=== PATIENT | female | born 1970 | race Caucasian/White ===

== ENCOUNTER → 2020-02-05 09:36 | Outpatient (BNVA) | payer MEDICAID, SELFPAY | PROVIDERS: PCP Internal Medicine; Referring Provider Internal Medicine; Visit Provider Internal Medicine Gastroenterology | DX: K21.9 Gastro-esophageal reflux disease without esophagitis (principal) | CPT/HCPCS: 99212 ==

== ENCOUNTER 2020-02-08 10:02 | Day surgery (SDC) | payer MEDICAID, SELFPAY ==
[2020-02-08 11:40] VITALS: BP 128/77; PULSE 74; RESP 16; TEMP 36.5; O2SAT 97; BMI 36.6
--- NOTE | 2020-02-08 12:05 | MHC.SHP ---
Pre-Procedural Eval Section B Chief Complaint: gerd Relevant Family History (Specify if Yes): No Relevant Social History: None Present Medications: see Short Stay Collaborative assessment Medical History: Significant History (GERD,HTN) History of Previous Operations: Relevant previous surgery/procedure and date(s) (gastric bypass, cholecystectomy) Allergies: Allergies Allergy/AdvReac Type Severity Reaction Status Date / Time iron [IRON] Allergy Severe ANAPHYLAXIS Verified 02/08/20 11:38 Opioids - Morphine Analogues Allergy Intermediate RASH Verified 02/08/20 11:38 [OPIOIDS - MORPHINE ANALOGUES] erthromycin Allergy Unknown Nausea Uncoded 02/08/20 11:38 Review of Systems Sugical H&P ROS: Negative: Constitution, Cardiovascular, Respiratory, Neurological, Psychiatric, Hem-Onc, Allergic/Immunologic, Gastrointestinal, Genitourinary, Musculoskeletal, Integumentary, Endocrine and Eyes/Ears/Nose/Throat Exam Surgical H&P Exam: Normal: HEENT, Normal: Heart, Normal: Lungs, Normal: Extremities, Normal: Abdomen, Normal: Skin and Normal: Neurological Plan Diagnosis/Plan: Unchanged Patient has been examined and remains a candidate for the planned procedure
--- NOTE | 2020-02-08 12:06 | HO.ANESPROP2 ---
[facility], [facility] Social History Social History Advance Directives: No Advance Directives Information Provided: Yes Meds Allergies Allergy/AdvReac Type Severity Reaction Status Date / Time iron [IRON] Allergy Severe ANAPHYLAXIS Verified 02/08/20 11:38 Opioids - Morphine Analogues Allergy Intermediate RASH Verified 02/08/20 11:38 [OPIOIDS - MORPHINE ANALOGUES] erthromycin Allergy Unknown Nausea Uncoded 02/08/20 11:38 Exam Exam Date and Time: February 08, 2020 1206 Airway Mallampati Class: II TM Dist: >3cm Neck ROM: Full Assessment and Plan Assessment Anesthesia Assessment: Anesthesia Plan Discussed and Chart Reviewed Final Anesthetic Review NPO: Yes ASA Class: II Final Preanesthetic Review: No Changes in Pt Med Stat, Meds/Allgs Chart Reviewed, Consent Obtained/Reviewed and Anes Risks/Benef Reviewed Patient Risk: Low Procedure Risk: Low Assessment/Block/Sedation in SS: Assess/Block/Sedation-SS Anesthetic Plan Anesthetic Plan: MAC: Disposition: Standard PACU
--- NOTE | 2020-02-08 12:13 | HO.ANESPROP2 ---
[facility] Social History Social History Are you a primary primary care md to a significant other at home: No Do you presently have visiting nurse or other home services: No Smoking Status: Never smoker Use of substances other than those prescribed or required for medical reasons: No Advance Directives: No Advance Directives Information Provided: Yes Advance Directives on File: No Meds Allergies Allergy/AdvReac Type Severity Reaction Status Date / Time iron [IRON] Allergy Severe ANAPHYLAXIS Verified 02/08/20 11:38 Opioids - Morphine Analogues Allergy Intermediate RASH Verified 02/08/20 11:38 [OPIOIDS - MORPHINE ANALOGUES] erthromycin Allergy Unknown Nausea Uncoded 02/08/20 11:38 Home Medications Medication Instructions Recorded Confirmed Type Singulair 02/08/20 History albuterol sulfate [ProAir HFA] 2 puff INHALATION Q4-6H PRN 02/08/20 02/08/20 History buspirone 10 mg PO BID 02/08/20 02/08/20 History hydrochlorothiazide 02/08/20 History irbesartan 300 mg PO DAILY 02/08/20 02/08/20 History mometasone-formoterol [Dulera] inh INHALATION 02/08/20 History sertraline [Zoloft] 100 mg PO DAILY 02/08/20 02/08/20 History vitamin B complex [Vitamins B 1 cap PO DAILY 02/08/20 02/08/20 History Complex] Exam Exam Date and Time: February 08, 2020 1213 Height,Weight and Vital Signs: Height 5 ft 2 in Weight 90.9 kg Last Vital Signs Temp 97.7 F 02/08/20 11:40 Pulse 74 02/08/20 11:40 Resp 16 02/08/20 11:40 BP 128/77 02/08/20 11:40 Pulse Ox 97 02/08/20 11:40
--- NOTE | 2020-02-08 12:48 | PM.OP ---
Brief Operative Note Date of Service: 02/08/20 Pre-op diagnosis: abdo pain, nausea Post-op diagnosis: same Procedure: see op note Surgeon: Katina Martinez MD Anesthesia: MAC Estimated blood loss (mL): 0 Condition: stable Disposition: PACU
--- NOTE | 2020-02-08 12:48 | W.PM.OPN ---
Operative Note Operative Note Date of Service: 02/08/20 Narrative: Procedure Description: EGD FLEXIBLE TRANSORAL UPPER GASTROINTESTINAL ENDOSCOPY UPPER ENDOSCOPY Consent: Indications for the procedure and potential complications of bleeding, perforation, reaction to medications and missed diagnosis were discussed with the patient and informed consent was obtained. Instrument: Olympus GIF H 190 J mid size upper endoscope Monitoring: Vital signs and clinical assessment, continuous EKG monitoring, Pulse oximetry, Carbon Dioxide monitoring and blood pressure monitoring were done throughout the procedure. Procedure: The patient was placed in the left lateral decubitis position and pre-procedure medications were administered and a bite block was placed. The endoscope was inserted into the mouth and advanced under direct vision to the third part of duodenum. A careful inspection was made as the upper endoscope was withdrawn including a retroflexed examination of the proximal stomach; Findings and interventions are described below. Hx of gastric bypass Findings: Larynx:normal Esophagus: GE junction at 38 cm, diaphragm hiatus at 38 cm, no varices or esophagitis. Stomach pouch: Patchy gastric erythema nestor at site of prior sutures. Biopsies were obtained. Grade 2 flap valve on retroflexed examination of the cardia. No fistula seen on careful inspection. jejunum: Scope inserted towards jejuno jejunal anastomosis and taken up the excluded limb but excluded stomach could not be entered. random small bowel taken Intervention: Biopsies as noted above Impression/Findings: mild gastritis PLAN: await bx if neg and ongoing sx then check RASt, and consider repeat MRe given prior hx of ileitis and colitis meantime can trial carafate and see if helps
[2020-02-08 12:57] VITALS: BP 133/82; PULSE 84; RESP 16; TEMP 36.1; O2SAT 98
[2020-02-08 13:12] VITALS: BP 113/88; PULSE 83; RESP 16; O2SAT 98
[2020-02-08] MEDS: ondansetron HCL 4 MG/2 ML VIAL IVPUSH (13:17)
[2020-02-08 13:21] VITALS: BP 121/84; PULSE 74; RESP 16; RESP 20; O2SAT 98
[2020-02-08] MEDS: fentaNYL citrate/PF 100 MCG/2 ML VIAL 50 MCG IVPUSH (13:21)
[2020-02-08 13:26] VITALS: BP 120/84; PULSE 74; RESP 16; O2SAT 97
[2020-02-08 13:44] VITALS: BP 134/89; PULSE 73; RESP 16; O2SAT 97
[2020-02-08 14:09] LABS: Basophils Absolute Auto 0.1 X10*3/uL (0.0-0.2); Basophils Percent Auto 0.7 % (0-2); Eosinophils Absolute Auto 0.3 X10*3/uL (0.0-0.4); Eosinophils Percent Auto 2.7 % (0-4); Hematocrit 35.6 % (37-47); Hemoglobin 11.7 g/dl (12.0-16.0); Imm Gran Abs Auto 0.03 X10*3/uL (0.00-0.03); Imm Gran Pct Auto 0.3 % (0.0-0.4); Lymphocytes Absolute Auto 2.6 X10*3/uL (1.2-4.9); MANUAL DIFF FLAG NO; Mean Corpuscular HGB Conc 32.9 g/dl (31.0-35.0); Mean Corpuscular Hemoglobin 29.9 pg (27.0-33.0); Mean Platelet Volume 8.4 fL (9.4-12.3); Monocytes Absolute Auto 0.7 X10*3/uL (0.1-1.2); Monocytes Percent Auto 6.8 % (2-11); Neutrophils Absolute Auto 6.7 X10*3/uL (2.0-8.3); Neutrophils Percent Auto 64.5 % (45-73); Platelet Count 507 X10*3/uL (160-400); Red Blood Count 3.91 X10*6/uL (4.20-5.50); Red Cell Distribution Width 14.2 % (11.0-16.0); White Blood Count 10.4 X10*3/uL (4.8-10.8)
[2020-02-08 14:25] LABS: Glucose Urine UA NEG (NEG); Leukocyte Esterase Urine NEG (NEG); Nitrite Urine NEG (NEG); PH 6.5 (5.0-8.0); Specific Gravity - Urine 1.025 (1.005-1.025); Urine Blood NEG (NEG); Urine Ketones NEG (NEG); Urine Protein NEG (NEG-TRACE)
[2020-02-08 14:28] LABS: Appearance Urine CLEAR; Color Urine YELLOW
[2020-02-08 14:31] LABS: Alanine Aminotransferase 22 U/L (0-31); Albumin Level 3.7 g/dL (3.5-5.0); Alkaline Phosphatase 96 U/L (39-117); Anion Gap 11 (12-20); Aspartate Amino Transferase 19 U/L (5-31); Bilirubin Total 0.5 mg/dL (0.0-1.0); Blood Urea Nitrogen 18 mg/dL (9-16); Calcium 8.8 mg/dL (8.4-10.2); Carbon Dioxide 30 mmol/L (22-29); Chloride 101 mmol/L (96-108); Creatinine Clr Calc Pharmacy 92.5; Estimated Glomerular Filt Rate > 60; Glucose Fasting 98 mg/dL (60-99); Potassium 4.3 mmol/l (3.3-5.1); Sodium 138 mmol/L (135-145); Total Protein 6.3 g/dL (6.5-8.0)
[2020-02-08 14:31] LABS: Mucus Urine TRACE /LPF; RBC Urine 0-2 /HPF (0); Squamous Epithelial Cell Urine 1+ /LPF; WBC Urine 0 /HPF (0-4)
[2020-02-08 14:33] LABS: Estimated Average Glucose 111 mg/dL; Hemoglobin A1c % 5.5 %
== END 2020-02-08 14:25 | disposition home or self-care (01) ==
PROVIDERS: PCP Internal Medicine; Visit Provider Internal Medicine Gastroenterology
PROC: 0DJ08ZZ Inspection of Upper Intestinal Tract, Via Natural or Artificial Opening Endoscopic (ICD-10-PCS; CPT 43235; principal; 2020-02-08 11:10)
DX: K21.9 Gastro-esophageal reflux disease without esophagitis (principal); K29.60 Other gastritis without bleeding; K44.9 Diaphragmatic hernia without obstruction or gangrene; Z98.84 Bariatric surgery status; I10 Essential (primary) hypertension; Z88.1 Allergy status to other antibiotic agents; Z88.8 Allergy status to other drugs, medicaments and biological substances; Z79.899 Other long term (current) drug therapy; Z79.51 Long term (current) use of inhaled steroids
CPT/HCPCS: 43239; 36415; 80053; 81001; 83036; 85025; 88305; 88342; J2405; J3010

== ENCOUNTER 2020-03-10 08:51 | Outpatient (REF) | payer MEDICAID, SELFPAY ==
--- NOTE | 2020-03-10 08:54 | US_ITS ---
EXAMINATION: US ABDOMEN COMPLETE CLINICAL INFORMATION: Crohn's disease. Abdominal pain. COMPARISON: Ultrasound 08/01/2019. CT for 20 12/16/2019. TECHNIQUE: Real-time imaging of the abdominal viscera. FINDINGS: PANCREAS: The visualized head and body of the pancreas appears unremarkable. Remainder of the pancreas is obscured by bowel gas. ABDOMINAL AORTA: The proximal, mid, and distal segments are normal in caliber. INFERIOR VENA CAVA: Visualized portions are normal. LIVER: The patient's known in the right lobe, is not visualized in today's study. Normal echogenicity. There is no intrahepatic biliary duct dilatation seen. GALLBLADDER: Surgically absent . COMMON BILE DUCT: Normal in caliber measuring 0.4 cm in diameter. RIGHT KIDNEY: Normal. No hydronephrosis. No renal calculi or focal parenchymal lesions. The kidney measures 10.7 cm in maximum dimension. LEFT KIDNEY: Normal. No hydronephrosis. No renal calculi or focal parenchymal lesions. The kidney measures 10.5 cm in maximum dimension. SPLEEN: Normal. The spleen measures 10.8 cm in maximum dimension. FREE FLUID: None. US/US abdomen complete IMPRESSION: 1. Status postcholecystectomy. No evidence of biliary duct dilatation. 2. The patient's known right lobe liver lesion is not visualized in today's study. 3. No acute findings otherwise seen.
== END 2020-03-10 08:52 | disposition home or self-care (01) ==
LOC: HO.US 08:51
PROVIDERS: Visit Provider Internal Medicine Gastroenterology
DX: R10.33 Periumbilical pain (principal); K50.10 Crohn's disease of large intestine without complications
CPT/HCPCS: 76700

== ENCOUNTER → 2020-05-21 07:50 | Outpatient (REF) | payer MEDICAID, SELFPAY ==
--- NOTE | ~2020-05-21 | NM_ITS ---
EXAMINATION: NM RADIONUCLIDE SOLID FOOD GASTRIC EMPTYING 4-HOUR STUDY CLINICAL INFORMATION: Gastroparesis. COMPARISON: None TECHNIQUE: A standard meal consisting of 4 oz of Egg Beaters brand tagged with 720 microcuries Tc-99m Sulfur Colloid, 8 oz water and 2 slices of toast with jelly was administered orally to the patient. Images were obtained using a dual head gamma camera in the anterior and posterior projections over of the stomach immediately post ingestion and at hourly intervals up to 4 hours post ingestion. The anterior and posterior counts at each time interval were averaged using the geometric mean and expressed as percentage of the immediate post ingestion counts. FINDINGS: Imaging over the abdomen: 1 hour 91% (normal 37%-90%) 2 hours 89% (normal 30%-60%) 3 hours 78% 4 hours 71% (normal 0%-10%) NM/NM gastric emptying study IMPRESSION: 71% retention at 4 hours. Findings are consistent with delayed gastric emptying.
== END ==
LOC: HO.NUCMED 07:50
PROVIDERS: Visit Provider Internal Medicine Gastroenterology
DX: K31.84 Gastroparesis (principal)
CPT/HCPCS: 78264; A9541

== ENCOUNTER 2020-07-10 07:25 | Outpatient (REF) | payer MEDICAID, SELFPAY ==
--- NOTE | ~2020-07-10 | MR_ITS ---
EXAMINATION: MR ABDOMEN WITHOUT CONTRAST CLINICAL INFORMATION: Right upper quadrant pain. COMPARISON: Previous abdominal ultrasound most recent February [address] of the abdomen and pelvis June 2019 TECHNIQUE: MR abdomen is performed without gadolinium contrast. MRCP sequences were also performed. FINDINGS: LUNG BASES: The visualized lung bases are unremarkable. LIVER, GALLBLADDER, AND BILIARY TREE: The liver is normal in size, smooth in contour, and normal in signal. There is a 7 mm dark on T1 and bright on T2-weighted sequences lesion in the anterior segment of the right lobe of the liver. When compared with previous ultrasound, it probably represents a hemangioma. No other focal liver lesion is seen. The gallbladder has been removed. There is no intrahepatic or extrahepatic biliary duct dilatation. The common bile duct measures 0.3 cm. No common bile duct stone is seen. PANCREAS: There are areas of fatty infiltration of the pancreas. The pancreas is otherwise normal. The main pancreatic duct is normal. SPLEEN: Unremarkable. ADRENAL GLANDS: Unremarkable. KIDNEYS AND URETERS: There are 2 small dark on T1 and bright on T2-weighted sequences lesions in the right kidney probably representing small cysts. The kidneys are otherwise unremarkable. GASTROINTESTINAL TRACT: There are postsurgical changes to the stomach. Visualized bowel is otherwise unremarkable. ABDOMINAL WALL: No significant hernia is appreciated. LYMPH NODES: No lymphadenopathy. VASCULAR: Unremarkable. OSSEOUS STRUCTURES: There is degenerative disc disease at L4-L5 and L5-S1. MR/MR abdomen wo con IMPRESSION: Normal caliber intrahepatic and extrahepatic bile ducts. No common bile duct stone seen. Probable small hemangioma in the right lobe the liver and small right renal cysts.
== END 2020-07-10 07:26 | disposition home or self-care (01) ==
LOC: HO.MRI 07:25
PROVIDERS: Visit Provider Internal Medicine Gastroenterology
DX: R10.11 Right upper quadrant pain (principal); G89.29 Other chronic pain
CPT/HCPCS: 74181

== ENCOUNTER 2020-07-24 08:03 | Outpatient (REF) | payer MEDICAID, SELFPAY ==
--- NOTE | ~2020-07-24 | FL_ITS ---
EXAMINATION: FL SMALL BOWEL SERIES CLINICAL INFORMATION: Abdominal pain. COMPARISON: None TECHNIQUE: Following a community health advocate image of the abdomen, contrast was administered orally, and interval abdominal radiographs were performed to assess for contrast progression through the small bowel. Following contrast transit through the small bowel and into the colon, the patient was placed on the fluoroscopy table, and multiple spot images were obtained. FINDINGS: License Issuer image of the abdomen demonstrates a normal bowel gas pattern. There are postsurgical changes from gastric bypass. There is normal transit time of contrast material through the small bowel, with contrast present in the colon by 1 hour 15 minutes. There is mild dilatation of small bowel loops in the left upper quadrant at the small bowel anastomosis. Small bowel loops are otherwise of normal caliber throughout the abdomen and pelvis. The jejunal and ileal fold patterns are normal, without evidence of abnormal thickening. No fixed regions of luminal narrowing are seen to suggest stricturing. The terminal ileum demonstrates a normal appearance. FLUOROSCOPY TIME: 0.2 minutes DOSE AREA PRODUCT: 4.522 garcia per centimeter squared. FL/FL small bowel follow through IMPRESSION: Post changes from gastric bypass. Otherwise normal small bowel series.
== END 2020-07-24 08:04 | disposition home or self-care (01) ==
LOC: HO.XRAY 08:03
PROVIDERS: Visit Provider Internal Medicine Gastroenterology
DX: K21.9 Gastro-esophageal reflux disease without esophagitis (principal)
CPT/HCPCS: 74250

== ENCOUNTER 2020-08-01 06:48 | Emergency (ER) | payer MEDICAID, SELFPAY ==
--- NOTE | ~2020-08-01 | CT_ITS ---
EXAMINATION: CT ABDOMEN AND PELVIS WITH CONTRAST CLINICAL INFORMATION: Right upper quadrant pain COMPARISON: MR abdomen without contrast 07/10/2020 TECHNIQUE: Multidetector volumetric images were obtained from the superior aspect of the liver through the pubic symphysis following administration 85 mL of Omnipaque 350 intravenous contrast. Sagittal and coronal reformatted images were obtained on the technologist's workstation. Oral contrast: No This CT examination was performed using dose optimization techniques as appropriate, variously including the following: *Automated exposure control *Adjustment of mA and/or kV according to patient size (this includes techniques or standardized protocols for targeted exams where dose is matched to indication/reason for exam; i.e. extremities or head) *Use of iterative reconstruction technique DLP: 737 mGy-cm FINDINGS: LUNG BASES: The lung bases are clear. The heart size is normal. LIVER, GALLBLADDER, AND BILIARY TREE: The liver is normal in size, shape, and attenuation. No focal hepatic lesion or biliary ductal dilatation is present. The gallbladder is not visualized. PANCREAS: There is mild fatty infiltration of pancreas especially along the head and proximal body of pancreas. SPLEEN: Unremarkable. ADRENAL GLANDS: Unremarkable. KIDNEYS AND URETERS: The kidneys are normal in size, shape, and attenuation. No hydronephrosis, hydroureter, or calculi seen. No perinephric stranding. There is a punctate 5 mm hypodensity in the upper pole cortex right kidney. BLADDER: Unremarkable. GASTROINTESTINAL TRACT: There is scattered stool and gas seen throughout the colon without any significant distention. The small bowel loops are normal caliber. There are gastric reduction surgical changes in the left upper quadrant. Appendix is not visualized with certainty. No inflammatory process seen. ABDOMINAL WALL: There are postsurgical changes along the upper and lower anterior abdominal wall. LYMPH NODES: No abnormal-sized mesenteric or retroperitoneal lymph nodes seen. VASCULAR: Unremarkable. PELVIC VISCERA: The uterus is bulky and retroverted likely from fibroid disease. Small cysts are suspected in both ovaries. No adnexal mass or free fluid. No abnormal pelvic or inguinal lymph nodes. OSSEOUS STRUCTURES: There are L4-L5 and L5-S1 metallic cages for fusion. No lytic or sclerotic process seen. CT/CT abdomen pelvis w con IMPRESSION: No acute intra-abdominal process seen. There are gastric sleeve surgical changes in the left upper quadrant and cholecystectomy. Fatty infiltration of pancreas. Postsurgical changes in upper and lower anterior abdominal wall are noted. Mild constipation. Bulky uterus likely fibroid disease. Likely small follicular cysts in both ovaries. L4-L5 and L5-S1 fusion with cages in place.
--- NOTE | 2020-08-01 07:00 | ED_ITS ---
HPI - Abdominal Pain General Chief Complaint: Abdominal Pain Stated Complaint: Abd pain Time Seen by Provider: 08/01/20 07:00 Source: patient and old records reviewed Mode of arrival: ambulatory Limitations: no limitations History of Present Illness HPI narrative: 49 yo female with GERD, chronic RUQ pain has had cholectystectomy c/o chronic RUQ pain just saw GI - had MRCP on 07/10 = no retained stones seen, small bowel series on 07/24 = no acute findings, normal study MD elicited complaint: abdominal pain Pertinent past history: other (chronic RUQ abdominal pain) Onset (ago): day(s) (chronic but worse over past 2 day) Pain Consistency: constant Location: RUQ Severity: severe Quality: stabbing Radiation: back Exacerbating factors: eating and movement Relieving factors: nothing Context: history of similar episodes Associated symptoms: nausea Related Data Home Medications Medication Instructions Recorded Confirmed Singulair 02/08/20 albuterol sulfate [ProAir HFA] 2 puff INHALATION Q4-6H PRN 02/08/20 02/08/20 buspirone 10 mg PO BID 02/08/20 02/08/20 hydrochlorothiazide 02/08/20 irbesartan 300 mg PO DAILY 02/08/20 02/08/20 mometasone-formoterol [Dulera] inh INHALATION 02/08/20 sertraline [Zoloft] 100 mg PO DAILY 02/08/20 02/08/20 vitamin B complex [Vitamins B 1 cap PO DAILY 02/08/20 02/08/20 Complex] Previous Rx's Medication Instructions Recorded ondansetron 4 mg disintegrating 4 mg PO Q8H #60 tab 02/08/20 tablet sucralfate 100 mg/mL oral 10 ml PO BID #420 ml 02/08/20 suspension amitriptyline 10 mg tablet 10 mg PO BEDTIME #60 tab 07/01/20 lansoprazole 30 mg delayed 30 mg PO DAILY #90 tab 07/01/20 release,disintegrating tablet hydrocodone-acetaminophen 1 tab PO Q6H PRN #12 tab 08/01/20 ondansetron 4 mg PO Q8H PRN #20 tab 08/01/20 sennosides [senna] 8.6 mg PO BEDTIME PRN #30 cap 08/01/20 Allergies Allergy/AdvReac Type Severity Reaction Status Date / Time iron [IRON] Allergy Severe ANAPHYLAXIS Verified 02/08/20 11:38 Opioids - Morphine Analogues Allergy Intermediate RASH Verified 02/08/20 11:38 [OPIOIDS - MORPHINE ANALOGUES] erthromycin Allergy Unknown Nausea Uncoded 02/08/20 11:38 Review of Systems Review of Systems Constitutional : No Weight loss, No Fever, No Chills ENT/Mouth : No sore throat, No Rhinorrhea Eyes: No Swelling, No Redness Cardiovascular : No Chest Pain, No SOB, NoEdema Respiratory : No Cough, No Sputum, No Wheezing Gastrointestinal : Positive Nausea, no Vomiting, no Diarrhea, positive abdominal Pain, No Hematochezia, No Melena Genitourinary : No Dysuria, No Urinary Frequency, No Hematuria, No Urgency Musculoskeletal : No joint pain, No Myalgias, No Joint Swelling Skin : No Skin Lesions, No rash Neuro : No Weakness, No Numbness, No Dizziness, No Headache Psych : No Anxiety/Panic, No Depression Heme/Lymph: No Bruising, No Lymphadenopathy Endocrine : No Polyuria, No Polydipsia All other systems reviewed and are negative. Physical Exam Vital Signs: Vital Signs: Last Vital Signs Temp 98.5 F 08/01/20 07:25 Pulse 82 08/01/20 08:08 Resp 16 08/01/20 08:08 BP 137/86 08/01/20 08:08 Pulse Ox 96 08/01/20 08:08 Body Mass Index 36.6 Appearance: Alert. Oriented X3. No acute distress. Eyes: Pupils equal, round and reactive to light. ENT: Pharynx normal. Neck: Normal inspection. Neck supple. CVS: Normal heart rate and rhythm. Pulses normal. Respiratory: No respiratory distress. Breath sounds normal. Abdomen: Soft and moderate RUQ pain, no rebound or guarding Skin: Skin warm and dry. Normal skin color. Normal skin turgor. Extremities: No lower extremity edema. No calf ttp Neuro: Oriented X 3. No motor deficit. No sensory deficit. Course Course Course Narrative: labs stable no acute findings, CT scan negative chronic pain can follow up with GI message sent to her swing driver Dr. Martinez will evaluate in ED stable for DC at this time after discussion with Dr. Martinez MDM - Abdominal Pain MDM Narrative Medical decision making narrative: 49 yo female with hx of lap gastric bypass and s/p lap cholecystectomy here with chronic RUQ pain seen and evaluated by GI with recent normal small bowel series and MRCP - comes in again with 2 days of attack - at this time will obtain labs, CT scan for analgesia/pancreatitis, pain control, dispo per results and findings Differential Diagnosis Differential diagnosis: Likely abdominal pain, constipation, gastritis, pancreatitis, peptic ulcer disease and small bowel obstruction; Unlikely aortic dissection, acute appendicitis, bowel perforation, diverticulitis and mesenteric ischemia Lab Data Result diagrams: 08/01/20 07:34 08/01/20 08:07 Labs: Lab Results 08/01/20 08/01/20 08/01/20 Range/Units 07:34 07:34 07:34 WBC 14.8 H (4.8-10.8) X10*3/uL RBC 4.22 (4.20-5.50) X10*6/uL Hgb 13.3 (12.0-16.0) g/dl Hct 39.1 (37-47) % MCV 92.7 (80-98) fL MCH 31.5 (27.0-33.0) pg MCHC 34.0 (31.0-35.0) g/dl RDW 13.6 (11.0-16.0) % Plt Count 500 H (160-400) X10*3/uL MPV 8.4 L (9.4-12.3) fL Immature Gran % (Auto) 0.5 H (0.0-0.4) % Neut % (Auto) 74.0 H (45-73) % Lymph % (Auto) 14.6 L (20-40) % Gilmer % (Auto) 7.1 (2-11) % Eos % (Auto) 3.2 (0-4) % Baso % (Auto) 0.6 (0-2) % Lymph # (Auto) 2.2 (1.2-4.9) X10*3/uL Gilmer # (Auto) 1.1 (0.1-1.2) X10*3/uL Eos # (Auto) 0.5 H (0.0-0.4) X10*3/uL Baso # (Auto) 0.1 (0.0-0.2) X10*3/uL Abs Immat Gran (auto) 0.08 H (0.00-0.03) X10*3/uL Absolute Neuts (auto) 11.0 H (2.0-8.3) X10*3/uL Absolute Nucleated RBC 0.000 (0.0-0.012) X10*3/uL Nucleated RBC % (auto) 0.0 (0.0-0.2) /100WBC Hold Blue Top SEE NOTE Sodium Cancelled Potassium Cancelled Chloride Cancelled Carbon Dioxide Cancelled Anion Gap Cancelled BUN Cancelled Creatinine Cancelled Estim Creat Clear Calc Cancelled Estimated GFR Cancelled Random Glucose Cancelled Calcium Cancelled Magnesium (1.6-2.6) mg/dL Total Bilirubin (0.0-1.0) mg/dL Direct Bilirubin (0.0-0.5) mg/dL AST (5-31) U/L ALT (0-31) U/L Alkaline Phosphatase (39-117) U/L Troponin I High Sens (<3.5-17.0) ng/L Total Protein (6.5-8.0) g/dL Albumin (3.5-5.0) g/dL Lipase (8-78) U/L 08/01/20 08/01/20 Range/Units 07:34 08:07 WBC (4.8-10.8) X10*3/uL RBC (4.20-5.50) X10*6/uL Hgb (12.0-16.0) g/dl Hct (37-47) % MCV (80-98) fL MCH (27.0-33.0) pg MCHC (31.0-35.0) g/dl RDW (11.0-16.0) % Plt Count (160-400) X10*3/uL MPV (9.4-12.3) fL Immature Gran % (Auto) (0.0-0.4) % Neut % (Auto) (45-73) % Lymph % (Auto) (20-40) % Gilmer % (Auto) (2-11) % Eos % (Auto) (0-4) % Baso % (Auto) (0-2) % Lymph # (Auto) (1.2-4.9) X10*3/uL Gilmer # (Auto) (0.1-1.2) X10*3/uL Eos # (Auto) (0.0-0.4) X10*3/uL Baso # (Auto) (0.0-0.2) X10*3/uL Abs Immat Gran (auto) (0.00-0.03) X10*3/uL Absolute Neuts (auto) (2.0-8.3) X10*3/uL Absolute Nucleated RBC (0.0-0.012) X10*3/uL Nucleated RBC % (auto) (0.0-0.2) /100WBC Hold Blue Top Sodium 138 Potassium 4.6 Chloride 103 Carbon Dioxide 27 Anion Gap 13 BUN 14 Creatinine 0.76 Estim Creat Clear Calc 94.8 Estimated GFR > 60 Random Glucose 117 H Calcium 9.6 D Magnesium 1.9 (1.6-2.6) mg/dL Total Bilirubin 0.8 (0.0-1.0) mg/dL Direct Bilirubin 0.3 (0.0-0.5) mg/dL AST 18 (5-31) U/L ALT 24 (0-31) U/L Alkaline Phosphatase 104 (39-117) U/L Troponin I High Sens < 3.5 (<3.5-17.0) ng/L Total Protein 6.7 (6.5-8.0) g/dL Albumin 4.0 (3.5-5.0) g/dL Lipase 37 (8-78) U/L ECG Data Attestation: I personally reviewed and interpreted this ECG as follows: ECG interpretation date: 08/01/20 ECG interpretation time: 08:12 Interpretation: Rate: 81 Rhythm: NSR Ione: normal Normal P waves. Normal ROJAS. Normal QRS complex. ST T wave : normal, no KEARA qTC: normal prior studies: no acute ischemia The study has been interpreted contemporaneously by me. . Discharge Plan Discharge Clinical Impression: Abdominal pain Qualifiers: Abdominal location: right upper quadrant Qualified Code(s): R10.11 - Right upper quadrant pain Leukocytosis Qualifiers: Leukocytosis type: unspecified Qualified Code(s): D72.829 - Elevated white blood cell count, unspecified Patient Disposition: Home, Self-Care Instructions: Chronic Abdominal Pain (ED) Additional Instructions: return to ED for any worsening symptoms or concerns please follow up with your GI doctor and your primary care doctor Prescriptions: New hydrocodone-acetaminophen 5-325 mg tablet 1 tab PO Q6H PRN (Reason: pain) Qty: 12 RF: 0 ondansetron 4 mg tablet,disintegrating 4 mg PO Q8H PRN (Reason: nausea and vomiting) Qty: 20 RF: 0 senna 8.6 mg capsule 8.6 mg PO BEDTIME PRN (Reason: constipation) Qty: 30 RF: 0 No Action sucralfate [Carafate] 100 mg/mL suspension 10 ml PO BID Qty: 420 RF: 2 ondansetron 4 mg tablet,disintegrating 4 mg PO Q8H Qty: 60 RF: 1 sertraline [Zoloft] 100 mg Tablet 100 mg PO DAILY RF: 0 buspirone 10 mg Tablet 10 mg PO BID RF: 0 albuterol sulfate [ProAir HFA] 90 mcg/actuation Hfa Aerosol Inhaler 2 puff INHALATION Q4-6H PRN (Reason: Wheezing) RF: 0 irbesartan 300 mg Tablet 300 mg PO DAILY RF: 0 vitamin B complex [Vitamins B Complex] Capsule 1 cap PO DAILY RF: 0 Dulera 50-5 mcg/actuation Hfa Aerosol Inhaler INHALATION RF: 0 Singulair RF: 0 hydrochlorothiazide RF: 0 lansoprazole [Prevacid SoluTab] 30 mg tablet,disintegrat, delay rel 30 mg PO DAILY Qty: 90 RF: 2 amitriptyline 10 mg tablet 10 mg PO BEDTIME Qty: 60 RF: 1 Referrals: Katina Martinez MD [Physician] - None (will follow up as outpatient) Stand Alone Forms: Work/School Release [facility] Past Medical History Attestation statement: The following information was validated with the patient. Source: old records reviewed Medical History (Updated 08/01/20 @ 12:00 by Gabby Webb DO) Chronic RUQ pain Crohn's colitis Gastroparesis GERD (gastroesophageal reflux disease) Surgical History (Updated 08/01/20 @ 07:03 by Gabby Webb DO) Bariatric surgery status S/P cholecystectomy Social History Social History Alcohol intake: never Smoking Status: Never smoker Use of substances other than those prescribed or required for medical reasons: No Advance Directives: No Advance Directives Information Provided: No Patient : No
--- NOTE | 2020-08-01 07:07 | ECG_ITS ---
Test Reason : ABDOMINAL PAIN Blood Pressure : / mmHG Vent. Rate : 081 BPM Atrial Rate : 081 BPM P-R Int : 134 ms QRS Dur : 082 ms QT Int : 356 ms P-R-T Axes : 069 060 052 degrees QTc Int : 413 ms Normal sinus rhythm Normal ECG When compared with ECG of 25-JUL-2019 16:09, No significant change was found Referred By: Gabby Webb Electronically Signed By:LUIS ENRIQUE SPENCER
[2020-08-01 07:25] VITALS: BP 150/83; PULSE 85; RESP 18; TEMP 36.9; O2SAT 96; BMI 36.6
[2020-08-01 07:40] LABS: Basophils Absolute Auto 0.1 X10*3/uL (0.0-0.2); Basophils Percent Auto 0.6 % (0-2); Eosinophils Absolute Auto 0.5 X10*3/uL (0.0-0.4); Eosinophils Percent Auto 3.2 % (0-4); Hematocrit 39.1 % (37-47); Hemoglobin 13.3 g/dl (12.0-16.0); Imm Gran Abs Auto 0.08 X10*3/uL (0.00-0.03); Imm Gran Pct Auto 0.5 % (0.0-0.4); Lymphocytes Absolute Auto 2.2 X10*3/uL (1.2-4.9); Lymphocytes Percent Auto 14.6 % (20-40); MANUAL DIFF FLAG NO; Mean Corpuscular Hemoglobin 31.5 pg (27.0-33.0); Mean Corpuscular Volume 92.7 fL (80-98); Mean Platelet Volume 8.4 fL (9.4-12.3); Monocytes Absolute Auto 1.1 X10*3/uL (0.1-1.2); Monocytes Percent Auto 7.1 % (2-11); Platelet Count 500 X10*3/uL (160-400); Red Blood Count 4.22 X10*6/uL (4.20-5.50); Red Cell Distribution Width 13.6 % (11.0-16.0); White Blood Count 14.8 X10*3/uL (4.8-10.8)
[2020-08-01 08:08] VITALS: BP 137/86; PULSE 82; RESP 16; O2SAT 96
[2020-08-01 08:08] LABS: Troponin-I High Sensitivity < 3.5 ng/L (<3.5-17.0)
[2020-08-01] MEDS: ondansetron HCL 4 MG/2 ML VIAL IVPUSH (08:21)
[2020-08-01] MEDS: Lidocaine HCl Viscous 2 % 15 ML SOLUTION MUCOUS MEM (08:21)
[2020-08-01] MEDS: Ketorolac Tromethamine 30 MG/ML VIAL IVPUSH (08:21)
[2020-08-01] MEDS: Magnesium Hydrox/Alum Hydrox 30 ML ORAL.SUSP PO (08:21)
[2020-08-01] MEDS: 0.9 % Sodium Chloride 1,000 ML 999 ML IVCONT (08:24)
[2020-08-01 08:46] LABS: Alanine Aminotransferase 24 U/L (0-31); Alkaline Phosphatase 104 U/L (39-117); Anion Gap 13 (12-20); Aspartate Amino Transferase 18 U/L (5-31); Bilirubin Direct 0.3 mg/dL (0.0-0.5); Bilirubin Total 0.8 mg/dL (0.0-1.0); Blood Urea Nitrogen 14 mg/dL (9-16); Calcium 9.6 mg/dL (8.4-10.2); Carbon Dioxide 27 mmol/L (22-29); Chloride 103 mmol/L (96-108); Creatinine Clr Calc Pharmacy 94.8; Estimated Glomerular Filt Rate > 60; Glucose Random 117 mg/dL (60-115); Lipase 37 U/L (8-78); Magnesium 1.9 mg/dL (1.6-2.6); Potassium 4.6 mmol/L (3.3-5.1); Sodium 138 mmol/L (135-145); Total Protein 6.7 g/dL (6.5-8.0)
[2020-08-01] MEDS: iohexoL 350 MG/ML 100 ML INFUS..BTL IV (09:35)
[2020-08-01] MEDS: diphenhydrAMINE HCL 50 MG/ML VIAL 25 MG IVPUSH (10:14)
[2020-08-01] MEDS: Morphine Sulfate 4 MG/ML CARTRIDGE IVPUSH (10:14)
[2020-08-01] MEDS: LORazepam 2 MG/ML VIAL 1 MG IVPUSH (11:17)
[2020-08-01 12:25] LABS: Iron 40 mcg/dL (30-160); Percent Iron Saturation 12 % (15-50); Total Iron Binding Capacity 327 mcg/dL (228-428); Unsaturated Iron Binding 287 ug/dL
[2020-08-01 12:43] LABS: Ferritin 213 ng/mL (10-250)
== END 2020-08-01 12:25 | disposition home or self-care (01) ==
PROVIDERS: Emergency Provider Emergency Medicine; PCP Internal Medicine
DX: R10.11 Right upper quadrant pain (principal); D72.829 Elevated white blood cell count, unspecified; Z98.84 Bariatric surgery status; K50.90 Crohn's disease, unspecified, without complications; K21.9 Gastro-esophageal reflux disease without esophagitis
CPT/HCPCS: 36415; 74177; 80048; 80076; 82728; 83540; 83690; 83735; 84484; 85025; 93005; 96361; 96374; 96375; 99284; 99285; J1200; J1885; J2060; J2270; J2405; Q9967

== ENCOUNTER 2020-08-02 06:07 | Inpatient (IN) | payer MEDICAID, SELFPAY ==
[2020-08-02] VITALS (12 sets, daily range): BP systolic 93–135; BP diastolic 56–81; PULSE 81–102; RESP 16–22; TEMP 36.4–37.3; O2SAT 94–96; BMI 36.6
--- NOTE | ~2020-08-02 | US_ITS ---
EXAMINATION: ULTRASOUND-GUIDED LIVER BIOPSY. CLINICAL INFORMATION: Hepatitis, right upper quadrant pain. COMPARISON: MRI abdomen 08/03/2020 TECHNIQUE: Following explaining ultrasound-guided liver biopsy procedure, benefits and risk, internal consent was obtained. Patient was placed supine on ultrasound stretcher and preliminary ultrasound imaging was obtained through the upper abdomen. An optimal site was selected along the right epigastric region and marked. The marked site was cleaned and draped in usual cell manner with 2%] exiting solution. 1% lidocaine was injected puncture site. Through a small skin incision a 20-gauge guide needle was advanced from the skin into the left hepatic lobe under sterile ultrasound guidance. Coaxially a 2 pass core biopsy was obtained. Samples are collected was sent to pathology in formalin the heights of effusion. Postprocedure the guide needle was withdrawn and complete hemostasis was achieved. Patient tolerated procedure extremely well. FINDINGS: There is heterogeneous-appearing liver on the preliminary ultrasound guidance. Ultrasound-guided left lobe liver core biopsy performed. US/US biopsy liver IMPRESSION: Successful ultrasound-guided left hepatic lobe biopsy performed.
--- NOTE | ~2020-08-02 | MR_ITS ---
EXAMINATION: MR ABDOMEN WITHOUT AND WITH CONTRAST CLINICAL INFORMATION: Elevated liver function tests. COMPARISON: CT abdomen from 08/01/2020. Abdomen MRI from 07/10/2020. Ultrasound from 08/01/2019. TECHNIQUE: MR imaging the abdomen was performed in standard sequences on a high-field magnet without and with intravenous administration of 9 mL of Gadavist. FINDINGS: LUNG BASES: Normal. No pulmonary consolidation or pleural effusion at either lung base. LIVER: Liver has normal size, contour and parenchymal signal. No evidence of steatosis or cirrhosis. No periportal edema. Small, 0.8 cm T2 hyperintense focus in hepatic segment VIII corresponds to the hyperechoic lesion seen on ultrasound from 08/01/2019, consistent with hemangioma. The hemangioma shows peripheral opacification on the delayed postcontrast images. Otherwise, liver is unremarkable. GALLBLADDER AND BILIARY TREE: Gallbladder is surgically absent. No intrahepatic or extrahepatic bile duct dilatation. Common bile duct is 0.4 cm diameter. No evidence of common duct stricture or choledocholithiasis. PANCREAS: Again noted is chronic atrophy with partial fatty replacement of pancreas. No pancreatic mass, edema or ductal dilatation. SPLEEN: Normal. ADRENAL GLANDS: Normal. KIDNEYS: Kidneys are normal in size and enhance symmetrically. Small, subcentimeter sized cortical cysts at the upper and lower pole of the right kidney. Imaging follow-up is not recommended for simple cysts. No hydronephrosis. BOWEL AND PERITONEUM: Surgical changes from Sina-en-Y gastric bypass. No bowel wall thickening, mesenteric fat stranding or ascites. VASCULATURE: Abdominal aorta is normal in caliber. The celiac trunk and its branches are widely patent. Superior mesenteric artery and renal arteries are normal. Inferior vena cava is normal. The splenic, mesenteric and portal veins are normal. The hepatic veins are normal. No venous thrombosis. LYMPH NODES: No pathologic sized lymph nodes. SKELETAL: No suspicious bone lesions. Susceptibility artifact produced by intervertebral cages at L4-5 and L5-S1. MR/MR abdomen wo/w con IMPRESSION: * No acute imaging abnormalities in the abdomen. * No evidence of choledocholithiasis or biliary tract obstruction, status post cholecystectomy. * 0.8 cm hemangioma of hepatic segment 8 is unchanged in size compared to 08/01/2019. No suspicious liver lesion.
--- NOTE | ~2020-08-02 | US_ITS ---
EXAMINATION: US ABDOMEN, DUPLEX ARTERIAL VENOUS CLINICAL INFORMATION: 49-year-old female with abdominal pain and elevated liver function tests. Evaluate for Budd-Chiari. COMPARISON: Abdomen CT from 08/01/2020. Ultrasound exam from 08/02/2020. TECHNIQUE: Duplex Doppler imaging of the abdominal vessels was performed. The splenic, hepatic and portal veins, hepatic arteries and inferior vena cava were evaluated. FINDINGS: The liver has normal size, contour and parenchymal echotexture. No perihepatic ascites. No intrahepatic bile duct dilatation. There is normal flow direction within the widely patent main, left and right portal veins. The flow within the main portal vein has a peak systolic velocity of approximately 30 cm/sec. The right, middle and left hepatic veins are widely patent with normal waveforms. No evidence of hepatic vein thrombosis. The visualized proper, right and left hepatic arteries are patent. Splenic vein is widely patent with normal waveform. Inferior vena cava is normal. US/US duplex arterial venous comp IMPRESSION: * Liver has a normal sonographic appearance. * The hepatic veins are normal. No evidence of Budd-Chiari.
--- NOTE | ~2020-08-02 | US_ITS ---
EXAMINATION: US ABDOMEN LIMITED CLINICAL INFORMATION: Abdominal pain with elevated LFTs rule out CBD obstruction.. COMPARISON: MRI abdomen 07/10/2020, ultrasound 03/10/[address] abdomen 08/01/2020 TECHNIQUE: Real-time imaging of the right upper quadrant abdominal viscera. FINDINGS: PANCREAS: The body and head of the pancreas is homogeneous in echotexture. The tail is obscured by overlying gas.. LIVER: The liver is normal in size. The liver contour is normal. Parenchymal echogenicity is normal. There is an echogenic lesion in the right anterior lobe measuring 1.1 x 0.8 x 1.0 cm. No additional lesions seen. There is no intrahepatic biliary duct dilatation seen. GALLBLADDER: The gallbladder has been surgically removed. COMMON BILE DUCT: Normal in caliber measuring 0.43 cm in diameter. RIGHT KIDNEY: Normal. No hydronephrosis. No renal calculi or focal parenchymal lesions. The kidney measures 10.7 cm in maximum dimension. FREE FLUID: None. US/US abdomen limited IMPRESSION: Hemangioma right anterior hepatic lobe.. It was visualized on previous MRI and ultrasound but not on CT. Visualized pancreas, gallbladder, CBD and the right kidney is unremarkable.
--- NOTE | 2020-08-02 06:36 | PC.NURSE ---
pt aaox4, resting on stretcher in NAD, breathing with ease on RA. Pt reports R side upper abd pain that radiates around R side to back stating it feels like someone is taking a hot alfie and very slowly poking me with it. Pt states this is worse than her chronic GI issues, has been acutely worse x 3 days. Bloodwork obtained, this RN to send to lab for processing. Pt attempting to provide urine sample at this time.
[2020-08-02 06:45] LABS: MANUAL DIFF FLAG NO
[2020-08-02 06:50] LABS: Basophils Absolute Auto 0.1 X10*3/uL (0.0-0.2); Basophils Percent Auto 0.4 % (0-2); Eosinophils Absolute Auto 0.3 X10*3/uL (0.0-0.4); Eosinophils Percent Auto 2.2 % (0-4); Hematocrit 38.8 % (37-47); Imm Gran Abs Auto 0.07 X10*3/uL (0.00-0.03); Imm Gran Pct Auto 0.5 % (0.0-0.4); Lymphocytes Absolute Auto 2.2 X10*3/uL (1.2-4.9); Lymphocytes Percent Auto 14.8 % (20-40); Mean Corpuscular HGB Conc 33.5 g/dl (31.0-35.0); Mean Corpuscular Hemoglobin 31.3 pg (27.0-33.0); Mean Corpuscular Volume 93.3 fL (80-98); Mean Platelet Volume 8.4 fL (9.4-12.3); Monocytes Absolute Auto 0.9 X10*3/uL (0.1-1.2); Neutrophils Absolute Auto 11.2 X10*3/uL (2.0-8.3); Neutrophils Percent Auto 76.1 % (45-73); Platelet Count 508 X10*3/uL (160-400); Red Blood Count 4.16 X10*6/uL (4.20-5.50); Red Cell Distribution Width 13.5 % (11.0-16.0); White Blood Count 14.7 X10*3/uL (4.8-10.8)
--- NOTE | 2020-08-02 06:54 | ED.ABDPAIN ---
HPI - Abdominal Pain General Chief Complaint: Abdominal Pain Stated Complaint: abd pain Time Seen by Provider: 08/02/20 06:50 Source: patient Mode of arrival: ambulatory Limitations: no limitations History of Present Illness HPI narrative: 49-year-old female came in today for evaluation of chronic abdominal pain. Patient status post gastric bypass in 2003, patient been complaining of chronic upper abdominal pain (status post cholecystectomy), patient has been seeing Dr. Martinez GI as an outpatient, patient has been worked up for chronic abdominal pain reportedly patient had gastroparesis, patient was seen yesterday for similar pain at in the emergency department and was seen and evaluated by Dr. Martinez, patient was offered an admission to the hospital for further inpatient workup but patient declined, patient returned today cannot tolerate the pain at home. Of note patient had CT the abdomen pelvis yesterday was unremarkable. Related Data Home Medications Medication Instructions Recorded Confirmed Singulair 02/08/20 albuterol sulfate [ProAir HFA] 2 puff INHALATION Q4-6H PRN 02/08/20 02/08/20 buspirone 10 mg PO BID 02/08/20 02/08/20 hydrochlorothiazide 02/08/20 irbesartan 300 mg PO DAILY 02/08/20 02/08/20 mometasone-formoterol [Dulera] inh INHALATION 02/08/20 sertraline [Zoloft] 100 mg PO DAILY 02/08/20 02/08/20 vitamin B complex [Vitamins B 1 cap PO DAILY 02/08/20 02/08/20 Complex] Previous Rx's Medication Instructions Recorded ondansetron 4 mg disintegrating 4 mg PO Q8H #60 tab 02/08/20 tablet sucralfate 100 mg/mL oral 10 ml PO BID #420 ml 02/08/20 suspension amitriptyline 10 mg tablet 10 mg PO BEDTIME #60 tab 07/01/20 lansoprazole 30 mg delayed 30 mg PO DAILY #90 tab 07/01/20 release,disintegrating tablet hydrocodone-acetaminophen 1 tab PO Q6H PRN #12 tab 08/01/20 ondansetron 4 mg PO Q8H PRN #20 tab 08/01/20 sennosides [senna] 8.6 mg PO BEDTIME PRN #30 cap 08/01/20 Allergies Allergy/AdvReac Type Severity Reaction Status Date / Time iron [IRON] Allergy Severe ANAPHYLAXIS Verified 08/02/20 06:14 Opioids - Morphine Analogues Allergy Intermediate RASH Verified 08/02/20 06:14 [OPIOIDS - MORPHINE ANALOGUES] erthromycin Allergy Unknown Nausea Uncoded 02/08/20 11:38 Review of Systems Review of Systems All other systems are reviewed and are negative Constitutional: Reports as per HPI and Reports no additional constitutional complaints Eyes: Reports as per HPI and Reports no additional eye complaints Reports system reviewed and no additional complaints, except as documented Cardiovascular: Reports as per HPI and Reports no additional cardiovascular complaints Respiratory: Reports as per HPI and Reports no additional respiratory complaints Gastrointestinal: Reports as per HPI and Reports no additional gastrointestinal complaints Genitourinary: Reports no additional female genitourinary complaints Musculoskeletal: Reports no additional musculoskeletal complaints Skin/Breast: Reports system reviewed and no additional complaints, except as docu Psychiatric: Reports no additional psychiatric complaints Endocrine: Reports no additional endocrine complaints Hematologic/Lymphatic: Reports no additional hematologic/lymphatic complaints Allergic/Immunologic: Reports no additional allergic/immunologic complaints Reports system reviewed and no additional complaints, except as documented and Reports Abnormal speech present Physical Exam Vital Signs: Vital Signs: Last Vital Signs Temp 99.2 F 08/02/20 07:10 Pulse 101 H 08/02/20 07:10 Resp 20 08/02/20 07:10 BP 119/81 08/02/20 07:10 Pulse Ox 95 08/02/20 07:10 Body Mass Index 36.6 Vital signs have been reviewed as appeared to be correct. Blood pressure normal. Heart rate elevation. Respiration rate normal. Temperature normal. Oxygen saturation normal. Appearance: Alert. Oriented X3. No acute distress. Head: Normal external exam. Normocephalic. Atraumatic. No Abad signs noted. No raccoon eyes noted Eyes: PERRLA. EOMI. Conjunctiva and sclera normal. Eyelids normal. ENT: TM's Normal. Pharynx normal. Uvula midline. Moist mucous membranes. No trismus noted. No drooling noted. No muffled voice noted. Neck: Normal inspection. Neck supple. FROM. No adenopathy. Thyroid Normal. No meningeal signs. No neck mass noted. CVS: Normal heart rate and rhythm. Heart sound normal. No murmurs noted. Pulses normal throughout. Respiratory: No respiratory distress. Painless inspiration. Breath sounds normal. No wheezes/rales/rhonchi noted. Chest nontender. No accessory muscle usage noted or decreased air movement noted. Abdomen: Soft, upper abdominal tenderness but no rebound tenderness, no guarding. Bowel sounds normal in all 4 quadrants. No distention noted. No organomegaly noted. No visible injury noted. Back: No CVA tenderness. Full range of motion noted. Skin: Skin warm and dry. Normal skin color. Normal skin turgor. No rashes/lesions/lacerations noted. Extremities: No lower extremity edema. Extremities exhibit normal range of motion. Extremities nontender. Neuro: Oriented X 3. No motor deficit. No sensory deficit. Reflexes normal. Course Course Course Narrative: Assessment and plan. 49-year-old female with chronic abdominal pain, status post cholecystectomy, status post remote gastric bypass. The case discussed with Dr. Martinez whose think patient should be admitted to the hospital for further evaluation of her chronic pain. Patient also describes very mild urinary frequency but no dysuria, UA is showing mild UTI. Will check cultures and consider antibiotic with fluid. Patient had negative ultrasound for CBD obstruction concern of leukocytosis/elevated LFTs. UA is reflecting a very mild UTI, I do not think that the urinary infection is the cause of patient's transaminitis, normal lactic acid, pending culture, otherwise nothing indicates severe sepsis in this patient. MDM - Abdominal Pain Lab Data Attestation: I reviewed the patient's lab results. Result diagrams: 08/02/20 06:34 08/02/20 06:34 Labs: Lab Results 08/02/20 08/02/20 08/02/20 Range/Units 06:34 06:34 06:34 WBC 14.7 H (4.8-10.8) X10*3/uL RBC 4.16 L (4.20-5.50) X10*6/uL Hgb 13.0 (12.0-16.0) g/dl Hct 38.8 (37-47) % MCV 93.3 (80-98) fL MCH 31.3 (27.0-33.0) pg MCHC 33.5 (31.0-35.0) g/dl RDW 13.5 (11.0-16.0) % Plt Count 508 H (160-400) X10*3/uL MPV 8.4 L (9.4-12.3) fL Immature Gran % (Auto) 0.5 H (0.0-0.4) % Neut % (Auto) 76.1 H (45-73) % Lymph % (Auto) 14.8 L (20-40) % [place] % (Auto) 6.0 (2-11) % Eos % (Auto) 2.2 (0-4) % Baso % (Auto) 0.4 (0-2) % Lymph # (Auto) 2.2 (1.2-4.9) X10*3/uL [place] # (Auto) 0.9 (0.1-1.2) X10*3/uL Eos # (Auto) 0.3 (0.0-0.4) X10*3/uL Baso # (Auto) 0.1 (0.0-0.2) X10*3/uL Abs Immat Gran (auto) 0.07 H (0.00-0.03) X10*3/uL Absolute Neuts (auto) 11.2 H (2.0-8.3) X10*3/uL Absolute Nucleated RBC 0.000 (0.0-0.012) X10*3/uL Nucleated RBC % (auto) 0.0 (0.0-0.2) /100WBC Hold Blue Top SEE NOTE Sodium 136 (135-145) mmol/L Potassium 4.1 (3.3-5.1) mmol/L Chloride 100 (96-108) mmol/L Carbon Dioxide 25 (22-29) mmol/L Anion Gap 15 (12-20) BUN 12 (9-16) mg/dL Creatinine 0.79 (0.5-1.4) mg/dL Estim Creat Clear Calc 91.2 Estimated GFR > 60 Random Glucose 122 H (60-115) mg/dL Lactic Acid (0.5-2.0) mmol/L Calcium 9.5 (8.4-10.2) mg/dL Total Bilirubin 1.3 H (0.0-1.0) mg/dL AST 288 H (5-31) U/L ALT 516 H (0-31) U/L Alkaline Phosphatase 258 H D (39-117) U/L C-Reactive Protein 11.15 H (< or = 0.50) mg/dL Total Protein 6.8 (6.5-8.0) g/dL Albumin 4.1 (3.5-5.0) g/dL Lipase 20 (8-78) U/L Urine Color Urine Appearance Urine pH (5.0-8.0) Ur Specific [place] (1.005-1.025) Urine Protein (NEG-TRACE) MG/DL Urine Glucose (UA) (NEG) MG/DL Urine Ketones (NEG) MG/DL Urine Blood (NEG) Urine Nitrite (NEG) Ur Leukocyte Esterase (NEG) Urine RBC (0) /HPF Urine WBC (0-4) /HPF Ur Squamous Epith Cells /LPF Urine Bacteria /LPF 08/02/20 08/02/20 Range/Units 06:39 07:50 WBC (4.8-10.8) X10*3/uL RBC (4.20-5.50) X10*6/uL Hgb (12.0-16.0) g/dl Hct (37-47) % MCV (80-98) fL MCH (27.0-33.0) pg MCHC (31.0-35.0) g/dl RDW (11.0-16.0) % Plt Count (160-400) X10*3/uL MPV (9.4-12.3) fL Immature Gran % (Auto) (0.0-0.4) % Neut % (Auto) (45-73) % Lymph % (Auto) (20-40) % [place] % (Auto) (2-11) % Eos % (Auto) (0-4) % Baso % (Auto) (0-2) % Lymph # (Auto) (1.2-4.9) X10*3/uL [place] # (Auto) (0.1-1.2) X10*3/uL Eos # (Auto) (0.0-0.4) X10*3/uL Baso # (Auto) (0.0-0.2) X10*3/uL Abs Immat Gran (auto) (0.00-0.03) X10*3/uL Absolute Neuts (auto) (2.0-8.3) X10*3/uL Absolute Nucleated RBC (0.0-0.012) X10*3/uL Nucleated RBC % (auto) (0.0-0.2) /100WBC Hold Blue Top Sodium (135-145) mmol/L Potassium (3.3-5.1) mmol/L Chloride (96-108) mmol/L Carbon Dioxide (22-29) mmol/L Anion Gap (12-20) BUN (9-16) mg/dL Creatinine (0.5-1.4) mg/dL Estim Creat Clear Calc Estimated GFR Random Glucose (60-115) mg/dL Lactic Acid 0.6 (0.5-2.0) mmol/L Calcium (8.4-10.2) mg/dL Total Bilirubin (0.0-1.0) mg/dL AST (5-31) U/L ALT (0-31) U/L Alkaline Phosphatase (39-117) U/L C-Reactive Protein (< or = 0.50) mg/dL Total Protein (6.5-8.0) g/dL Albumin (3.5-5.0) g/dL Lipase (8-78) U/L Urine Color DARK YELLOW Urine Appearance CLEAR Urine pH 6.0 (5.0-8.0) Ur Specific [place] 1.015 (1.005-1.025) Urine Protein NEG (NEG-TRACE) MG/DL Urine Glucose (UA) NEG (NEG) MG/DL Urine Ketones NEG (NEG) MG/DL Urine Blood NEG (NEG) Urine Nitrite NEG (NEG) Ur Leukocyte Esterase TRACE H (NEG) Urine RBC 0 (0) /HPF Urine WBC 5-9 H (0-4) /HPF Ur Squamous Epith Cells 1+ /LPF Urine Bacteria 2+ /LPF Imaging Data US - abdomen: Radiologist's impression: Hemangioma right anterior hepatic lobe.. It was visualized on previous MRI and ultrasound but not on CT. Visualized pancreas, gallbladder, CBD and the right kidney is unremarkable. Discharge Plan Discharge Clinical Impression: Abdominal pain, Transaminitis Urinary tract infection Qualifiers: Urinary tract infection type: acute cystitis Hematuria presence: without hematuria Qualified Code(s): N30.00 - Acute cystitis without hematuria Patient Disposition: Admitted As Inpatient [facility] Past Medical History Medical History Chronic RUQ pain Crohn's colitis Gastroparesis GERD (gastroesophageal reflux disease) Surgical History Bariatric surgery status S/P cholecystectomy Social History Social History Alcohol intake: never Smoking Status: Never smoker Use of substances other than those prescribed or required for medical reasons: No Any prior treatment program specific to substance use: No Advance Directives: No Advance Directives Information Provided: No
[2020-08-02 06:57] LABS: Glucose Urine UA NEG (NEG); Leukocyte Esterase Urine TRACE (NEG); Nitrite Urine NEG (NEG); Specific Gravity - Urine 1.015 (1.005-1.025); UACC Culture Trigger YES; Urine Blood NEG (NEG); Urine Ketones NEG (NEG); Urine Protein NEG (NEG-TRACE)
[2020-08-02 07:02] LABS: Appearance Urine CLEAR; Color Urine DARK YELLOW
[2020-08-02 07:04] LABS: Bacteria Urine 2+ /LPF; RBC Urine 0 /HPF (0); Squamous Epithelial Cell Urine 1+ /LPF
[2020-08-02] MEDS: Morphine Sulfate 2 MG/ML CARTRIDGE IVPUSH (07:08)
[2020-08-02] MEDS: diphenhydrAMINE HCL 50 MG/ML VIAL IVPUSH (07:08)
[2020-08-02 07:31] LABS: Alanine Aminotransferase 516 U/L (0-31); Albumin Level 4.1 g/dL (3.5-5.0); Alkaline Phosphatase 258 U/L (39-117); Anion Gap 15 (12-20); Aspartate Amino Transferase 288 U/L (5-31); Bilirubin Total 1.3 mg/dL (0.0-1.0); Blood Urea Nitrogen 12 mg/dL (9-16); Calcium 9.5 mg/dL (8.4-10.2); Carbon Dioxide 25 mmol/L (22-29); Chloride 100 mmol/L (96-108); Creatinine Clr Calc Pharmacy 91.2; Estimated Glomerular Filt Rate > 60; Glucose Random 122 mg/dL (60-115); Lipase 20 U/L (8-78); Potassium 4.1 mmol/L (3.3-5.1); Sodium 136 mmol/L (135-145); Total Protein 6.8 g/dL (6.5-8.0)
[2020-08-02 07:33] LABS: C Reactive Protein 11.15 mg/dL (< or = 0.50)
--- NOTE | 2020-08-02 08:02 | PC.NURSE ---
Pt alert and oriented, c/o epigastric pain radiates to mid back, tender to touch, active BS x4, no abd distention noted. Pt pending admission at this time.
[2020-08-02 08:17] LABS: Lactic Acid 0.6 mmol/L (0.5-2.0)
[2020-08-02] MEDS: cefTRIAXone sodium 1 GM in 0.9 % Sodium Chloride 50 ML IV (08:34)
[2020-08-02] MEDS: 0.9 % Sodium Chloride 1,000 ML 999 ML IVCONT (08:36)
[2020-08-02] MEDS: HYDROmorphone HCl 1 MG/ML SYRINGE IVPUSH ×5 (09:22→21:57)
[2020-08-02] MEDS: Famotidine/PF 20 MG/2 ML VIAL IVPUSH ×2 (11:42→20:31)
[2020-08-02] MEDS: Dextrose 5 % and 0.9 % NaCl 1,000 ML 100 ML IVCONT ×2 (12:01→22:27)
[2020-08-02] MEDS: Piperacillin Sodium/Tazobactam 3.375 GM in 0.9 % Sodium Chloride 50 ML IV ×3 (12:02→23:23)
[2020-08-02 13:35] LABS: INTERNATIONAL NORM RATIO 1.2 (0.9-1.1); Prothrombin Time 14.8 SEC (10.8-13.0)
--- NOTE | 2020-08-02 13:40 | PC.NURSE ---
This jingle writer gave report to receiving nurse (Mariluz).
[2020-08-02 13:53] LABS: Acetaminophen LAB < 1 mcg/mL (<30)
[2020-08-02 14:02] LABS: COVID-19 Test Negative (Negative); IDNOW Serial# 9DD0AD1C
[2020-08-02] MEDS: diphenhydrAMINE HCL 50 MG/ML VIAL 12.5 MG IVPUSH ×2 (14:46→20:31)
--- NOTE | 2020-08-02 15:03 | PC.NURSE ---
received to unit at 1425 , co pain 12/05 . medicated with iv dilaudid and benadryl for itching. vss. patient educated on pain scale and oriented to hospital unit.
--- NOTE | 2020-08-02 15:28 | PM.GICN ---
History of Present Illness Data of Consult Service Date: 08/02/20 Requesting physician: Rodrigo Tang Primary Care Provider: Luis Enrique Mason MD [facility] Reason for consult: Abdominal pain, elevated LFTs This 49 YF was seen at [facility] this am with worsening of her chronic abdominal pain: Patient status post gastric bypass in 2003, patient been complaining of chronic upper abdominal pain (status post cholecystectomy), patient has been seeing Dr. Juan DAWN as an outpatient, patient has been worked up for chronic abdominal pain reportedly patient had gastroparesis, patient was seen yesterday for similar pain at in the emergency department and was seen and evaluated by Dr. Zelaya, patient was offered an admission to the hospital for further inpatient workup but patient declined, patient returned today cannot tolerate the pain at home. Of note patient had CT the abdomen pelvis yesterday was unremarkable . Labs showed elevated wbc with left shift and elevated LFTs (of note LFTs were normal on 08/01/2020) Patient complains of intermittent episodes of abdominal pain - last episode was in Apr, 2020 Recurrent pain starting on 07/30/20. Pain is burning and stabbing (feels like a red hot alfie poking through) and radiates to the back. It was 10 x 10 in intensity when patient arrived and has improved to 7 x 10 today. Pain is more less constant and varies in intensity. Abdominal is pain is similar to the pain she had prior to gallbladder surgery last fall. Pain resolved for a few months after the gallbladder surgery and has recurred now. She has not been eating for the past few days. She was able to take some to injury last night when she went home from the ED. Pt notes intermittent bouts of diarrhea with urgency alternating with normal stools (diagnosed with colitis on past colonoscopy in 2017) Denies black stools or rectal bleeding. Pt reports having RYGBS in 2003. Lost 90 lbs from 250 to 160 lbs after the surgery Has slowly regained weight and now weighs 200 lbs. Patient denies known family history of colon polyps, colon cancer or other GI malignancies. Father has diverticulosis and a sister has EOE. IMAGING STUDIES: 07/10/20 MRI SHOWED: Normal caliber intrahepatic and extrahepatic bile ducts. No common bile duct stone seen. Probable small hemangioma in the right lobe the liver and small right renal cysts. 08/01/[address] SCAN SHOWED: No acute intra-abdominal process seen. There are gastric sleeve surgical changes in the left upper quadrant and cholecystectomy. Fatty infiltration of pancreas. Postsurgical changes in upper and lower anterior abdominal wall are noted. Mild constipation. Bulky uterus likely fibroid disease. Likely small follicular cysts in both ovaries. L4-L5 and L5-S1 fusion with cages in place. ENDOSCOPIC STUDIES: 02/08/20 EGD WAS PERFORMED BY DR. ZELAYA: Larynx:normal Esophagus: GE junction at 38 cm, diaphragm hiatus at 38 cm, no varices or esophagitis. Stomach pouch: Patchy gastric erythema nestor at site of prior sutures. Biopsies were obtained. Grade 2 flap valve on retroflexed examination of the cardia. No fistula seen on careful inspection. jejunum: Scope inserted towards jejuno jejunal anastomosis and taken up the excluded limb but excluded stomach could not be entered. random small bowel taken Impression/Findings: mild gastritis PLAN: await bx if neg and ongoing sx then check RASt, and consider repeat MRe given prior hx of ileitis and colitis meantime can trial carafate and see if helps PAST GI HISTORY BY REVIEW OF MEDICAL RECORDS: Pt is followed by Dr Zelaya in the GI Clinic: she had prior w/u at [facility] had h incl egd and colon with ileitis and mild colitis fecal dolores raised MRe was neg eboni hyperenhancement currently no s of diarrhea or colitis I changed PPI, and refilled ursodiol, plan for trazodone if needed she had bene having severe pain, went to ED and had us with gallstones she had cholecystectomy wt Dr Alcazar she had bene gettign worsening sx of GERD so changed to prevacid solutab INTERIM: she went on solutab, not really helped, maybe helped for the first week sx worse with coffee nausea all the time appetite is fair weight is stable has episodes where she has stabbing pain in front to the back she has bouts of diarrhea since GB out she is havign issues with swallowing, feels nestor meat getting stuck taking carafate at night and it helps Review of Systems Constitutional: Constitutional: Denies fever(s), Denies headache(s) and Denies weight loss Eyes: Eyes: Denies eye discharge and Denies irritation ENT: Reports Normal hearing present, Denies dysphagia, Denies dizziness and Denies headache(s) Cardiovascular: Cardiovascular: Denies chest pain, Denies leg edema and Denies dyspnea on exertion Respiratory: Respiratory: Denies cough, Denies dyspnea on exertion and Denies wheezing Gastrointestinal: Gastrointestinal: Denies abdominal pain, Denies change in bowel habits, Denies dysphagia and Denies heartburn Genitourinary: Genitourinary: Denies difficulty voiding and Denies dysuria Musculoskeletal: Musculoskeletal: Denies back pain and Denies arthralgias Integumentary/Breasts: Skin/Breast: Denies pruritus, Denies rash and Denies jaundice Neurologic: Reports Normal hearing present, Denies Abnormal speech present, Denies dizziness, Denies headache(s) and Denies seizure-like activity Psychiatric: Psychiatric: Denies anxiety, Denies depression and Denies panic attacks Endocrine: Endocrine: Denies cold intolerance, Denies flushing and Denies heat intolerance Hematologic/Lymphatic: Hematologic/Lymphatic: Denies easy bleeding and Denies easy bruising Allergic/Immunologic: Allergic/Immunologic: Denies wheezing PMFSH Past Medical History Medical History Asthma Chronic RUQ pain Crohn's colitis Gastroparesis GERD (gastroesophageal reflux disease) Surgical History Surgical History Bariatric surgery status S/P cholecystectomy Social History Social History Household Members: Significant Other Housing: Apartment Are you a primary medical care administrator to a significant other at home: No Do you presently have visiting nurse or other home services: No Alcohol intake: never service: No Current occupational status: employed Meds Allergies Allergy/AdvReac Type Severity Reaction Status Date / Time iron [IRON] Allergy Severe ANAPHYLAXIS Verified 10/24/20 09:24 Opioids - Morphine Analogues Allergy Intermediate RASH Verified 10/24/20 09:24 [OPIOIDS - MORPHINE ANALOGUES] erthromycin Allergy Unknown Nausea Uncoded 02/08/20 11:38 Active Medications: Current Medications Generic Name Dose Route Start Last Admin Trade Name Freq PRN Reason Stop Dose Admin Albuterol Sulfate 2 puff 08/02/20 11:04 Albuterol Sulfate 90 Mcg 8 Gm Inhaler INHALE Q4H PRN Wheezing Buspirone HCl 10 mg 08/02/20 21:00 Buspirone Hcl 10 Mg Tablet PO BID LEANNA Diphenhydramine HCl 12.5 mg 08/02/20 12:56 08/02/20 14:46 Diphenhydramine Hcl 50 Mg/Ml Vial IVPUSH 12.5 mg Q6H PRN Administration Itching Famotidine 20 mg 08/02/20 11:15 08/02/20 11:42 Famotidine/Pf 20 Mg/2 Ml Vial IVPUSH 20 mg BID LEANNA Administration Fluticasone/Vilanterol 1 puff 08/03/20 08:00 Fluticasone/Vilanterol 100/25 Blst.W.Dev INHALE RDAILY [facility] Hydromorphone HCl 1 mg 08/02/20 11:06 08/02/20 14:46 Hydromorphone Hcl 1 Mg/Ml Syringe IVPUSH 1 mg Q3H PRN Administration Pain, Severe (Pain Scale 7-10) Dextrose/Sodium Chloride 1,000 mls @ 100 mls/hr 08/02/20 11:15 08/02/20 12:01 D5ns IVCONT 100 mls/hr .Q10H [facility] Administration Piperacillin Sod/Tazobactam 50 mls @ 100 mls/hr 08/02/20 12:00 08/02/20 13:42 Sod 3.375 gm/ Sodium Chloride IV Infused Q6H [facility] Infusion Montelukast Sodium 10 mg 08/03/20 09:00 Montelukast Sodium 10 Mg Tablet PO DAILY [facility] Ondansetron HCl 4 mg 08/02/20 11:04 Ondansetron Hcl 4 Mg/2 Ml Vial IVPUSH Q8H PRN Nausea and Vomiting Senna 8.6 mg 08/02/20 11:14 Sennosides 8.6 Mg Tablet PO BEDTIME PRN constipation Sertraline HCl 300 mg 08/03/20 09:00 Sertraline Hcl 100 Mg Tablet PO DAILY [facility] Sodium Chloride 3 ml 08/02/20 16:00 0.9 % Sodium Chloride Flush 3 Ml Syringe IVFLUSH QSHIFT [facility] Tiotropium [place] 1 puff 08/03/20 09:00 Tiotropium [place] 18 Mcg Cap.W.Dev INHALE DAILY [facility] Valsartan 160 mg 08/03/20 09:00 Valsartan 160 Mg Tablet PO DAILY [facility] Home Medications Medication Instructions Recorded Confirmed Last Taken Type Singulair 10 mg PO DAILY 02/08/20 08/02/20 Unknown History albuterol sulfate 90 mcg/actuation 2 puff INHALATION Q4-6H PRN 02/08/20 08/02/20 02/08/20 09:00 History aerosol inhaler (ProAir HFA) buspirone 10 mg tablet 10 mg PO BID 02/08/20 08/02/20 Unknown History irbesartan 300 mg tablet 300 mg PO DAILY 02/08/20 08/02/20 Unknown History mometasone-formoterol HFA 50 mcg-5 2 puff INHALATION BID 02/08/20 08/02/20 02/08/20 09:00 History mcg/actuation aerosol inhaler (Dulera) tiotropium bromide 18 mcg capsule 1 cap INHALATION DAILY 08/02/20 08/02/20 Unknown History with inhalation device (Spiriva with HandiHaler) hydrochlorothiazide 25 mg tablet 25 mg PO DAILY 10/24/20 Unknown History sertraline 100 mg tablet (Zoloft) 200 mg PO DAILY tab 10/24/20 Unknown History Physical Exam Vital Signs: Vital Signs: Last Vital Signs Temp 97.7 F 08/02/20 14:40 Pulse 93 08/02/20 14:40 Resp 20 08/02/20 14:40 BP 111/67 08/02/20 14:40 Pulse Ox 96 08/02/20 14:40 Body Mass Index 36.6 Const: General: healthy appearing and no acute distress Nutritional Appearance: obese Orientation/consciousness: patient oriented x3 Limitations: no limitations HENMT: Head: Yes normal to inspection Ears: hearing grossly normal bilaterally Mouth: Normal oral and palatal mucosa present Eyes: Sclerae: sclerae normal Pupils: Equal, round and reactive pupils present Neck: Neck: Yes normal visual inspection Chest: Chest palpation & inspection: normal inspection of the chest Resp: Effort & Inspection: normal respiratory effort Auscultation: clear to auscultation bilaterally Cardio: Palpation: normal PMI Rate: regular rate Rhythm: regular rhythm Heart sounds: S1 normal heart sound present, S2 normal heart sound present and no murmurs GI: Palpation (GI): Soft to palpation, Tenderness to palpation present (GI) in the epigastrum and in the RUQ and No hepatosplenomegaly present Auscultation: normal bowel sounds Rectal Exam - Female: deferred Skin: General skin exam: no rashes or lesions noted Neuro: General: patient oriented x3, gait normal and moves all extremities Cranial nerves: Yes Equal, round and reactive pupils present and Yes Normal hearing present Speech: No Abnormal speech present Psych: Appearance: grossly normal Mental Status: mental status grossly normal Results Labs CBC & Chem 7: 08/07/20 06:10 08/07/20 06:10 Labs: Short CBC 08/02/20 Range/Units 06:34 WBC 14.7 H (4.8-10.8) X10*3/uL Hgb 13.0 (12.0-16.0) g/dl Hct 38.8 (37-47) % Plt Count 508 H (160-400) X10*3/uL BMP 08/02/20 06:34 Sodium 136 Potassium 4.1 Chloride 100 Carbon Dioxide 25 BUN 12 Creatinine 0.79 Calcium 9.5 Liver Function 08/02/20 Range/Units 06:34 Total Bilirubin 1.3 H (0.0-1.0) mg/dL AST 288 H (5-31) U/L ALT 516 H (0-31) U/L Alkaline Phosphatase 258 H D (39-117) U/L Albumin 4.1 (3.5-5.0) g/dL Urine 08/02/20 Range/Units 06:39 Urine Color DARK YELLOW Urine Appearance CLEAR Urine pH 6.0 (5.0-8.0) Ur Specific [place] 1.015 (1.005-1.025) Urine Protein NEG (NEG-TRACE) MG/DL Urine Glucose (UA) NEG (NEG) MG/DL Assessment and Plan (1) Abdominal pain: Status: Acute (2) Transaminitis: Status: Acute 49 YF with Obesity (status post RYGBS), GERD admitted with recurrent episodes of RUQ/epigastric pain radiating to the back. Labs reveal elevated LFTs - of note LFTs were completely normal yesterday. She notes pain is similar to episodes of pain she had prior to her gallbladder surgery - likely source of pain is biliary. Hepatitis, CMV, EBV serologies and autoimmune workup is pending. RECOMMENDATIONS: 1. Start a clear liquid diet 2. IV pain medications 3. Schedule an MRI in the am. If MRI confirms presence of choledocholithiasis/CBD sludge, she will need an ERCP. 4. Dr Zelaya will be following up with the patient on Tuesday.
[2020-08-02] MEDS: ondansetron HCL 4 MG/2 ML VIAL IVPUSH (17:24)
--- NOTE | 2020-08-02 19:27 | HP_ITS ---
DATE OF SERVICE: 08/02/2020 CHIEF COMPLAINT: Abdominal pain. HISTORY OF PRESENTING ILLNESS: This is a 49-year-old female patient with past medical history significant for asthma, hypertension, DJD, status post cholecystectomy in December of 2019 at [facility]. Since then, the patient has chronic abdominal pain that got worsened, over last couple of days, the patient is being followed by Dr. Martinez from Gastroenterology. She was evaluated at his office on June 2020 due to persistent abdominal pain and abdominal MRI from 07/10 showed no common bile duct dilatation or stones. She subsequently underwent upper GI small bowel series that showed changes from gastric bypass, otherwise normal small bowel series. The patient presented to [facility] yesterday due to abdominal pain and nausea, CAT scan of the abdomen and pelvis was unremarkable. Her LFTs were normal. Therefore, she was discharged home. The patient presented again to [facility] due to epigastric pain with radiation to right upper quadrant and back. The pain was severe. therefore, an ultrasound was obtained that showed no acute abnormality. However, the patient was noted to have significant elevation in her LFTs as compared to yesterday. AST was 288 with an alkaline phosphatase of 258 and C-reactive protein was 11.15. Total bilirubin was 1.3. Her electrolytes otherwise are unremarkable. Her CBC showed an elevated WBC count of 14.7. Urinalysis showed 2+ bacteria with no nitrates, wbc's 5 to 9. The patient in the ER treated with IV fluids, IV morphine with some improvement in symptoms and now being admitted to [facility] due to right-sided abdominal pain with elevated LFTs. PAST MEDICAL HISTORY: Significant for: 1. Asthma. 2. Degenerative joint disease. 3. History of hypertension. 4. History of depression. SOCIAL HISTORY: The patient denies history of smoking. She occasionally drinks alcohol. She lives with her fiance. 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 ALLERGIES: SHE IS ALLERGIC TO IRON, THAT CAUSES ANAPHYLAXIS; OPIOID MEDICATIONS CAUSES RASH; ERYTHROMYCIN CAUSES NAUSEA. MEDICATIONS ON ADMISSION: Albuterol inhaler 2 puffs q.4-6 hours as needed, BuSpar 10 mg b.i.d., hydrochlorothiazide 25 mg daily, hydrocodone 1 tablet every 6 hours as needed, irbesartan 300 daily, lansoprazole 30 mg daily, Dulera 2 puff inhalation b.i.d., Senna 8.6 mg at bedtime, Zoloft 300 daily, Singulair 10 mg daily, sucralfate i tab b.i.d., Spiriva 1 inhaler daily. FAMILY HISTORY: Mother has hypertension, diabetes, obesity, and breast cancer. Father has diabetes, obesity, and hypertension as well as leukemia. REVIEW OF SYSTEMS: CUTTING PRESSMAN: The patient denies headache or dizziness. CVS: No chest pain or palpitation. GI: She complains of abdominal pain as above, associated with nausea. No diarrhea. : She denies urinary symptoms of urgency or frequency. Rest of all other systems are reviewed and are negative. PHYSICAL EXAMINATION: GENERAL: The patient is resting in bed. VITAL SIGNS: BP 111/67, pulse of 93, respiratory rate 20, afebrile, O2 saturation 96% on room air. HEENT: Pupils are equal, round, and reactive to light and accommodation. NECK: Supple. No JVD. LUNGS: Clear to auscultation. HEART: Regular rate rhythm. ABDOMEN: Obese, tender in the epigastric and right upper quadrant area. No guarding or rigidity noted. Bowel sounds are audible. EXTREMITIES: Without edema. SKIN: No rash. NEURO EXAMINATION: Nonfocal. ASSESSMENT AND PLAN: This is a 49-year-old female patient with past medical history of cholecystectomy, status post gastric sleeve surgery, presented to [facility] due to worsening abdominal pain of 2 days duration. The patient diagnosed to have elevated LFTs, new since yesterday. 1. Acute abdominal pain with elevated LFTs. Likely the patient has sludge or stone not seen on MRCP done last month,no new medications,no hx of alcohol abuse, will order further testing including Doppler study of the abdomen, rule out Budd-Chiari syndrome, will check hepatitis A, B, C serology as well as JOSÉ MIGUEL,anti smooth muscle antibody as per GI recommendation. We will check Tylenol level and INR. The patient will be placed on IV antibiotic due to leukocytosis and low-grade fever. Case discussed with Gastroenterology. We will treat the patient with IV fluids and analgesics. Keep her n.p.o. If the patient's Doppler study is negative, then we will obtain an MRI with liver protocol with and without contrast to r/o biliary obstruction. 2. Hypertension. Blood pressure is low normal. We will hold hydrochlorothiazide. Continue irbesartan. Follow blood pressure closely. 3. History of depression. We will continue Zoloft. 4. History of asthma with no acute exacerbation. 5. Deep vein thrombosis prophylaxis with Lovenox. MD HAMMAD Vogel/HANSA / [id number] MTDD
[2020-08-02] MEDS: busPIRone HCl 10 MG TABLET PO (20:30)
[2020-08-02] MEDS: Sennosides 8.6 MG TABLET PO (22:00)
[2020-08-02] MEDS: 0.9 % Sodium Chloride Flush 3 ML SYRINGE IVFLUSH (23:23)
[2020-08-03] VITALS (8 sets, daily range): BP systolic 100–117; BP diastolic 57–73; PULSE 73–92; RESP 14–20; TEMP 36–36.5; O2SAT 96–98
[2020-08-03] MEDS: HYDROmorphone HCl 1 MG/ML SYRINGE IVPUSH ×6 (02:00→20:47)
[2020-08-03] MEDS: diphenhydrAMINE HCL 50 MG/ML VIAL 12.5 MG IVPUSH ×4 (02:01→23:15)
[2020-08-03] MEDS: Piperacillin Sodium/Tazobactam 3.375 GM in 0.9 % Sodium Chloride 50 ML IV ×4 (04:31→23:15)
[2020-08-03 06:12] LABS: MANUAL DIFF FLAG NO
[2020-08-03 06:36] LABS: Basophils Absolute Auto 0.1 X10*3/uL (0.0-0.2); Basophils Percent Auto 0.5 % (0-2); Eosinophils Absolute Auto 0.5 X10*3/uL (0.0-0.4); Eosinophils Percent Auto 4.7 % (0-4); Hemoglobin 10.7 g/dl (12.0-16.0); Imm Gran Abs Auto 0.04 X10*3/uL (0.00-0.03); Imm Gran Pct Auto 0.4 % (0.0-0.4); Lymphocytes Absolute Auto 2.3 X10*3/uL (1.2-4.9); Lymphocytes Percent Auto 20.4 % (20-40); Mean Corpuscular HGB Conc 33.4 g/dl (31.0-35.0); Mean Corpuscular Hemoglobin 31.9 pg (27.0-33.0); Mean Corpuscular Volume 95.5 fL (80-98); Mean Platelet Volume 8.6 fL (9.4-12.3); Monocytes Absolute Auto 0.8 X10*3/uL (0.1-1.2); Monocytes Percent Auto 7.2 % (2-11); Neutrophils Absolute Auto 7.6 X10*3/uL (2.0-8.3); Neutrophils Percent Auto 66.8 % (45-73); Platelet Count 399 X10*3/uL (160-400); Red Blood Count 3.35 X10*6/uL (4.20-5.50); Red Cell Distribution Width 13.9 % (11.0-16.0); White Blood Count 11.3 X10*3/uL (4.8-10.8)
[2020-08-03 06:42] LABS: Alanine Aminotransferase 522 U/L (0-31); Albumin Level 3.5 g/dL (3.5-5.0); Alkaline Phosphatase 303 U/L (39-117); Anion Gap 11 (12-20); Aspartate Amino Transferase 272 U/L (5-31); Bilirubin Direct 0.5 mg/dL (0.0-0.5); Bilirubin Total 1.3 mg/dL (0.0-1.0); Blood Urea Nitrogen 8 mg/dL (9-16); Calcium 8.5 mg/dL (8.4-10.2); Carbon Dioxide 26 mmol/L (22-29); Chloride 101 mmol/L (96-108); Estimated Glomerular Filt Rate > 60; Glucose Random 107 mg/dL (60-115); Potassium 3.8 mmol/L (3.3-5.1); Sodium 134 mmol/L (135-145); Total Protein 5.7 g/dL (6.5-8.0)
[2020-08-03] MEDS: Famotidine/PF 20 MG/2 ML VIAL IVPUSH ×2 (08:00→20:46)
[2020-08-03] MEDS: Montelukast Sodium 10 MG TABLET PO (08:00)
[2020-08-03] MEDS: Sertraline HCL 100 MG TABLET 300 MG PO (08:00)
[2020-08-03] MEDS: busPIRone HCl 10 MG TABLET PO ×2 (08:00→20:46)
[2020-08-03] MEDS: Fluticasone/Vilanterol 100/25 BLST.W.DEV 1 PUFF INHALE (08:00)
[2020-08-03] MEDS: 0.9 % Sodium Chloride Flush 3 ML SYRINGE IVFLUSH (08:01)
--- NOTE | 2020-08-03 08:54 | MHC.CM.PN ---
PATIENT IS INDEPENDENT WITH HER ADLS. SHE OCCASIONALLY RELIES ON A CANE FOR ADDED SUPPORT. 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 CASE MANAGEMENT FOLLOWING FOR DISCHARGE PLANS. FAMILY WILL TRANSPORT HOME AT TIME OF DISCHARGE.
[2020-08-03] MEDS: Dextrose 5 % and 0.9 % NaCl 1,000 ML 100 ML IVCONT ×2 (09:52→23:16)
[2020-08-03 11:14] LABS: C Reactive Protein 14.11 mg/dL (< or = 0.50)
[2020-08-03] MEDS: LORazepam 2 MG/ML VIAL 0.25 MG IVPUSH (11:35)
[2020-08-03] MEDS: ondansetron HCL 4 MG/2 ML VIAL IVPUSH (11:42)
--- NOTE | 2020-08-03 14:17 | HO.PM.IMPN ---
Subjective Subjective Date of Service: 08/03/20 Interval History: c/o persistent RUQ abd pain, no nausea, no vomiting , no fevers on clear liqs taking only sips of ana buddy . ROS General no headache, no dizziness no fever chills. CVS no chest pain, no palpitation. Respiratory no cough, no sob. Gastrointestinal nausea,+ abdominal pain Physical Exam Vital Signs: Vital Signs: Last Vital Signs Temp 97.7 F 08/03/20 11:37 Pulse 84 08/03/20 11:37 Resp 14 08/03/20 11:37 BP 115/57 L 08/03/20 11:37 Pulse Ox 96 08/03/20 11:37 Body Mass Index 36.6 General no acute distress. Neck supple no JVD. CVS regular rate rhythm, Respiratory lungs clear to auscultation, no respiratory distress Gastrointestinal tenderness epigastric and RUQ, bowel sounds audible, no guarding , no rigidity. Extremities no clubbing cyanosis or edema. Neuro nonfocal, speech clear. Skin no jaundice Objective Data Current Medications Generic Name Dose Route Start Last Admin Trade Name Freq PRN Reason Stop Dose Admin Albuterol Sulfate 2 puff 08/02/20 11:04 Albuterol Sulfate 90 Mcg 8 Gm Inhaler INHALE Q4H PRN Wheezing Buspirone HCl 10 mg 08/02/20 21:00 08/03/20 08:00 Buspirone Hcl 10 Mg Tablet PO 10 mg BID LEANNA Administration Diphenhydramine HCl 12.5 mg 08/02/20 12:56 08/03/20 09:53 Diphenhydramine Hcl 50 Mg/Ml Vial IVPUSH 12.5 mg Q6H PRN Administration Itching Famotidine 20 mg 08/02/20 11:15 08/03/20 08:00 Famotidine/Pf 20 Mg/2 Ml Vial IVPUSH 20 mg BID LEANNA Administration Fluticasone/Vilanterol 1 puff 08/03/20 08:00 08/03/20 08:00 Fluticasone/Vilanterol 100/25 Blst.W.Dev INHALE 1 puff RDAILY LEANNA Administration Hydromorphone HCl 1 mg 08/02/20 11:06 08/03/20 14:07 Hydromorphone Hcl 1 Mg/Ml Syringe IVPUSH 1 mg Q3H PRN Administration Pain, Severe (Pain Scale 7-10) Dextrose/Sodium Chloride 1,000 mls @ 100 mls/hr 08/02/20 11:15 08/03/20 09:52 D5ns IVCONT 100 mls/hr .Q10H LEANNA Administration Piperacillin Sod/Tazobactam 50 mls @ 100 mls/hr 08/02/20 12:00 08/03/20 12:55 Sod 3.375 gm/ Sodium Chloride IV Infused Q6H LEANNA Infusion Montelukast Sodium 10 mg 08/03/20 09:00 08/03/20 08:00 Montelukast Sodium 10 Mg Tablet PO 10 mg DAILY LEANNA Administration Ondansetron HCl 4 mg 08/02/20 11:04 08/03/20 11:42 Ondansetron Hcl 4 Mg/2 Ml Vial IVPUSH 4 mg Q8H PRN Administration Nausea and Vomiting Senna 8.6 mg 08/02/20 11:14 08/02/20 22:00 Sennosides 8.6 Mg Tablet PO 8.6 mg BEDTIME PRN Administration constipation Sertraline HCl 300 mg 08/03/20 09:00 08/03/20 08:00 Sertraline Hcl 100 Mg Tablet PO 300 mg DAILY LEANNA Administration Sodium Chloride 3 ml 08/02/20 16:00 08/03/20 08:01 0.9 % Sodium Chloride Flush 3 Ml Syringe IVFLUSH 3 ml QSHIFT LEANNA Administration Tiotropium [place] 1 puff 08/03/20 09:00 08/03/20 08:00 Tiotropium [place] 18 Mcg Cap.W.Dev INHALE 1 puff DAILY LEANNA Administration Valsartan 160 mg 08/03/20 09:00 08/03/20 09:08 Valsartan 160 Mg Tablet PO Not Given DAILY [facility] Labs CBC & Chem 7: 08/03/20 05:50 08/03/20 05:50 Microbiology Microbiology Results: Microbiology 08/02/20 08:06 Blood - Venous Blood Culture - Preliminary No growth after 24 hours. 08/02/20 07:50 Blood - Venous Blood Culture - Preliminary No growth after 24 hours. 08/02/20 00:00 Urine clean catch - Clean Catch Midstream Urine Culture - Final No growth. Assessment and Plan (1) Abdominal pain: Status: Acute (2) Transaminitis: Status: Acute (3) Urinary tract infection: Status: Acute Assessment and Plan: 49-year-old female patient with past medical history of cholecystectomy, status post gastric sleeve surgery, presented to [facility] due to worsening abdominal pain of 2 days duration. The patient diagnosed to have elevated LFTs, new since yesterday. 1. Acute abdominal pain with elevated LFTs. Question etiology, persistent right upper quadrant abdominal pain, LFTs and CRP trending up. MRI with liver protocol showed no evidence of common bile duct obstruction or biliary dilatation, Doppler study of the abdomen showed normal hepatic wanes no evidence of Budd-Chiari Tylenol level and INR in normal range, hepatitis A, B, C serology as well as JOSÉ MIGUEL,anti smooth muscle antibody pending,EBV,Herpes and cmv pend. No new medication patient chronically on Zoloft and irbesartan, no history of alcohol abuse. Continue supportive care with IV fluid, clear liquid diet, IV Pepcid and analgesics, being followed by Gastroenterology. Continue IV Zosyn day 2 due to leukocytosis and low-grade fever on admission Follow LFTs BMP and CBC 2. Hypertension. Blood pressure is low normal. Continue to hold hydrochlorothiazide, Continue irbesartan. Follow blood pressure closely. 3. History of depression. continue Zoloft. 4. History of asthma with no acute exacerbation,cont inhalers. 5. ? uti urine culture showed no growth. Deep vein thrombosis prophylaxis with Lovenox.
[2020-08-03] MEDS: Sennosides 8.6 MG TABLET PO (17:17)
[2020-08-04] VITALS (11 sets, daily range): BP systolic 105–126; BP diastolic 61–74; PULSE 76–95; RESP 18–20; TEMP 36.2–36.6; O2SAT 93–99
[2020-08-04] MEDS: HYDROmorphone HCl 1 MG/ML SYRINGE IVPUSH ×4 (00:10→09:36)
[2020-08-04] MEDS: Piperacillin Sodium/Tazobactam 3.375 GM in 0.9 % Sodium Chloride 50 ML IV ×4 (06:04→23:51)
[2020-08-04 06:22] LABS: MANUAL DIFF FLAG NO
[2020-08-04] MEDS: diphenhydrAMINE HCL 50 MG/ML VIAL 12.5 MG IVPUSH (06:42)
[2020-08-04 06:51] LABS: Basophils Absolute Auto 0.1 X10*3/uL (0.0-0.2); Basophils Percent Auto 0.9 % (0-2); Eosinophils Absolute Auto 0.7 X10*3/uL (0.0-0.4); Eosinophils Percent Auto 7.1 % (0-4); Hematocrit 29.7 % (37-47); Hemoglobin 9.8 g/dl (12.0-16.0); Imm Gran Abs Auto 0.03 X10*3/uL (0.00-0.03); Imm Gran Pct Auto 0.3 % (0.0-0.4); Lymphocytes Absolute Auto 2.7 X10*3/uL (1.2-4.9); Mean Corpuscular Volume 97.1 fL (80-98); Mean Platelet Volume 8.6 fL (9.4-12.3); Monocytes Absolute Auto 0.6 X10*3/uL (0.1-1.2); Neutrophils Absolute Auto 5.1 X10*3/uL (2.0-8.3); Neutrophils Percent Auto 55.7 % (45-73); Platelet Count 410 X10*3/uL (160-400); Red Blood Count 3.06 X10*6/uL (4.20-5.50); Red Cell Distribution Width 13.8 % (11.0-16.0); White Blood Count 9.2 X10*3/uL (4.8-10.8)
[2020-08-04 06:59] LABS: Alanine Aminotransferase 326 U/L (0-31); Albumin Level 3.3 g/dL (3.5-5.0); Alkaline Phosphatase 250 U/L (39-117); Anion Gap 12 (12-20); Aspartate Amino Transferase 79 U/L (5-31); Bilirubin Direct 0.3 mg/dL (0.0-0.5); Bilirubin Total 0.9 mg/dL (0.0-1.0); Blood Urea Nitrogen 5 mg/dL (9-16); Calcium 8.4 mg/dL (8.4-10.2); Carbon Dioxide 25 mmol/L (22-29); Chloride 102 mmol/L (96-108); Creatinine Clr Calc Pharmacy 97.3; Estimated Glomerular Filt Rate > 60; Glucose Random 106 mg/dL (60-115); Potassium 3.8 mmol/L (3.3-5.1); Sodium 135 mmol/L (135-145); Total Protein 5.6 g/dL (6.5-8.0)
[2020-08-04 07:36] LABS: C Reactive Protein 8.09 mg/dL (< or = 0.50)
[2020-08-04 07:43] LABS: Glucose, Whole Blood 107 mg/dL (60-115)
[2020-08-04] MEDS: Fluticasone/Vilanterol 100/25 BLST.W.DEV 1 PUFF INHALE (07:51)
[2020-08-04 08:05] LABS: HBS Num1 12.59 mIU/mL (0-7.99); HBc Num1 0.06 S/CO (0.00-0.79); HBsAGNum1 0.23 S/CO (0.00-0.99); Hepatitis B Core Antibody Nonreactive (Nonreactive); Hepatitis B Surface Antigen Negative (Negative); ~Hepatitis B Surface Antibody REACTIVE (Nonreactive)
[2020-08-04 08:06] LABS: ~Hepatitis C Antibody Nonreactive (Nonreactive)
--- NOTE | 2020-08-04 09:17 | PM.GICN ---
History of Present Illness Data of Consult Service Date: 08/04/20 Requesting physician: Rodrigo Tang Primary Care Provider: Luis Enrique Mason MD [facility] Reason for consult: abdo pain, abn LFT 49-year-old female patient h/o asthma, hypertension, DJD, status post cholecystectomy in December of 2019 at [facility] who I am seeing for assessment for abdo pain and abn LFT. She had been having chronic RUq marielle and had MRI and small bowel series as o/p prior to admission that were normal she then came to the ED with severe worsening of RUq pain with nausea, but d/c'ed home, with plan for o/p f/u however her sx recurred and she came back, this time her LFT were elevated with marked CRP and possible UTI as well She has been on zosyn, further w/u with normal CBD on us and normal dopper us without budd chiaria as well as MRI without any CBD stricture stones or concerning liver lesion. Today she still has pain in the RUQ but less than before, has ongoing nausea, and vomiting x 1 episode. No stool output since last . Of note she remembers having several tick bites 4 weeks ago and got some antibiotics from PCP. Denies any skin rashes or night sweats. Review of Systems Review of Systems: All other systems are reviewed and are negative Constitutional: Reports as per HPI and Reports no additional constitutional complaints Eyes: Reports as per HPI and Reports no additional eye complaints Reports system reviewed and no additional complaints, except as documented Cardiovascular: Reports as per HPI and Reports no additional cardiovascular complaints Respiratory: Reports as per HPI and Reports no additional respiratory complaints Gastrointestinal: Reports as per HPI and Reports no additional gastrointestinal complaints Genitourinary: Reports no additional female genitourinary complaints Musculoskeletal: Reports no additional musculoskeletal complaints Skin/Breast: Reports system reviewed and no additional complaints, except as docu Psychiatric: Reports no additional psychiatric complaints Endocrine: Reports no additional endocrine complaints Hematologic/Lymphatic: Reports no additional hematologic/lymphatic complaints Allergic/Immunologic: Reports no additional allergic/immunologic complaints Reports system reviewed and no additional complaints, except as documented and Reports Abnormal speech present Constitutional: Constitutional: Denies fever(s), Denies headache(s) and Denies weight loss Eyes: Eyes: Denies eye discharge and Denies irritation ENT: Reports Normal hearing present, Denies dysphagia, Denies dizziness and Denies headache(s) Cardiovascular: Cardiovascular: Denies chest pain, Denies leg edema and Denies dyspnea on exertion Respiratory: Respiratory: Denies cough, Denies dyspnea on exertion and Denies wheezing Gastrointestinal: Gastrointestinal: Denies abdominal pain, Denies change in bowel habits, Denies dysphagia and Denies heartburn Musculoskeletal: Musculoskeletal: Denies back pain and Denies arthralgias Integumentary/Breasts: Skin/Breast: Denies pruritus, Denies rash and Denies jaundice Neurologic: Reports Normal hearing present, Denies Abnormal speech present, Denies dizziness, Denies headache(s) and Denies seizure-like activity Psychiatric: Psychiatric: Denies anxiety, Denies depression and Denies panic attacks Endocrine: Endocrine: Denies cold intolerance, Denies flushing and Denies heat intolerance Hematologic/Lymphatic: Hematologic/Lymphatic: Denies easy bleeding and Denies easy bruising Allergic/Immunologic: Allergic/Immunologic: Denies wheezing PMFSH Past Medical History Medical History Chronic RUQ pain Crohn's colitis Gastroparesis GERD (gastroesophageal reflux disease) Surgical History Surgical History Bariatric surgery status S/P cholecystectomy Social History Social History Household Members: Significant Other Housing: Apartment Alcohol intake: never Smoking Status: Never smoker Use of substances other than those prescribed or required for medical reasons: No Currently Displaying Signs/Symptoms of Drug Intoxication Withdrawal: No Any prior treatment program specific to substance use: No Have you been hit, kicked, punched, or otherwise hurt by someone within the past year? If so, by whom?: No Do you feel safe in your current relationship?: Yes Is there a partner from a previous relationship who is making you feel unsafe now?: No Are you made to feel afraid or neglected: No Spiritual Healthcare Practices: Taoist Advance Directives: No Advance Directives Information Provided: No Do you have thoughts of harming others: None Do you have a plan to hurt others: No Plan Recently lost weight without trying: No Nutrition Risks: No Nutritional Risk Patient : No : No Poor oral hygiene: No service: No Current occupational status: employed Meds Allergies Allergy/AdvReac Type Severity Reaction Status Date / Time iron [IRON] Allergy Severe ANAPHYLAXIS Verified 08/02/20 06:14 Opioids - Morphine Analogues Allergy Intermediate RASH Verified 08/02/20 06:14 [OPIOIDS - MORPHINE ANALOGUES] erthromycin Allergy Unknown Nausea Uncoded 02/08/20 11:38 Active Medications: Current Medications Generic Name Dose Route Start Last Admin Trade Name Freq PRN Reason Stop Dose Admin Albuterol Sulfate 2 puff 08/02/20 11:04 Albuterol Sulfate 90 Mcg 8 Gm Inhaler INHALE Q4H PRN Wheezing Buspirone HCl 10 mg 08/02/20 21:00 08/03/20 20:46 Buspirone Hcl 10 Mg Tablet PO 10 mg BID LEANNA Administration Diphenhydramine HCl 12.5 mg 08/02/20 12:56 08/04/20 06:42 Diphenhydramine Hcl 50 Mg/Ml Vial IVPUSH 12.5 mg Q6H PRN Administration Itching Famotidine 20 mg 08/02/20 11:15 08/03/20 20:46 Famotidine/Pf 20 Mg/2 Ml Vial IVPUSH 20 mg BID LEANNA Administration Fluticasone/Vilanterol 1 puff 08/03/20 08:00 08/04/20 07:51 Fluticasone/Vilanterol 100/25 Blst.W.Dev INHALE 1 puff RDAILY LEANNA Administration Hydromorphone HCl 1 mg 08/02/20 11:06 08/04/20 06:03 Hydromorphone Hcl 1 Mg/Ml Syringe IVPUSH 1 mg Q3H PRN Administration Pain, Severe (Pain Scale 7-10) Dextrose/Sodium Chloride 1,000 mls @ 100 mls/hr 08/02/20 11:15 08/03/20 23:16 D5ns IVCONT 100 mls/hr .Q10H LEANNA Administration Piperacillin Sod/Tazobactam 50 mls @ 100 mls/hr 08/02/20 12:00 08/04/20 06:38 Sod 3.375 gm/ Sodium Chloride IV Infused Q6H LEANNA Infusion Montelukast Sodium 10 mg 08/03/20 09:00 08/03/20 08:00 Montelukast Sodium 10 Mg Tablet PO 10 mg DAILY LEANNA Administration Ondansetron HCl 4 mg 08/02/20 11:04 08/03/20 11:42 Ondansetron Hcl 4 Mg/2 Ml Vial IVPUSH 4 mg Q8H PRN Administration Nausea and Vomiting Senna 8.6 mg 08/02/20 11:14 08/03/20 17:17 Sennosides 8.6 Mg Tablet PO 8.6 mg BEDTIME PRN Administration constipation Sertraline HCl 300 mg 08/03/20 09:00 08/03/20 08:00 Sertraline Hcl 100 Mg Tablet PO 300 mg DAILY LEANNA Administration Sodium Chloride 3 ml 08/02/20 16:00 08/04/20 01:08 0.9 % Sodium Chloride Flush 3 Ml Syringe IVFLUSH Not Given QSHIFT LEANNA Tiotropium [place] 1 puff 08/03/20 09:00 08/04/20 07:51 Tiotropium [place] 18 Mcg Cap.W.Dev INHALE 1 puff DAILY LEANNA Administration Valsartan 160 mg 08/03/20 09:00 08/03/20 09:08 Valsartan 160 Mg Tablet PO Not Given DAILY [facility] Home Medications Medication Instructions Recorded Confirmed Last Taken Type Singulair 10 mg PO DAILY 02/08/20 08/02/20 Unknown History albuterol sulfate [ProAir HFA] 2 puff INHALATION Q4-6H PRN 02/08/20 08/02/20 02/08/20 09:00 History buspirone 10 mg PO BID 02/08/20 08/02/20 Unknown History hydrochlorothiazide 25 mg PO DAILY 02/08/20 08/02/20 Unknown History irbesartan 300 mg PO DAILY 02/08/20 08/02/20 Unknown History mometasone-formoterol [Dulera] 2 puff INHALATION BID 02/08/20 08/02/20 02/08/20 09:00 History sertraline [Zoloft] 300 mg PO DAILY 02/08/20 08/02/20 Unknown History tiotropium bromide [Spiriva with 1 cap INHALATION DAILY 08/02/20 08/02/20 Unknown History HandiHaler] Physical Exam Vital Signs: Vital Signs: Last Vital Signs Temp 97.3 F 08/04/20 08:00 Pulse 78 08/04/20 08:00 Resp 18 08/04/20 08:00 BP 107/62 08/04/20 08:00 Pulse Ox 93 08/04/20 08:00 Body Mass Index 36.6 Const: General: healthy appearing and no acute distress Nutritional Appearance: obese Orientation/consciousness: patient oriented x3 Limitations: no limitations HENMT: Head: Yes normal to inspection Ears: hearing grossly normal bilaterally Mouth: Normal oral and palatal mucosa present Eyes: Sclerae: sclerae normal Pupils: Equal, round and reactive pupils present Neck: Neck: Yes normal visual inspection Chest: Chest palpation & inspection: normal inspection of the chest Resp: Effort & Inspection: normal respiratory effort Auscultation: clear to auscultation bilaterally Cardio: Palpation: normal PMI Rate: regular rate Rhythm: regular rhythm Heart sounds: S1 normal heart sound present, S2 normal heart sound present and no murmurs GI: Palpation (GI): Soft to palpation, Tenderness to palpation present (GI) in the epigastrum and in the RUQ and No hepatosplenomegaly present Auscultation: normal bowel sounds Rectal Exam - Female: deferred Skin: General skin exam: no rashes or lesions noted Neuro: General: patient oriented x3, gait normal and moves all extremities Cranial nerves: Yes Equal, round and reactive pupils present and Yes Normal hearing present Speech: No Abnormal speech present Psych: Appearance: grossly normal Mental Status: mental status grossly normal Results Labs CBC & Chem 7: 08/04/20 05:51 08/04/20 05:51 Labs: Short CBC 08/04/20 Range/Units 05:51 WBC 9.2 (4.8-10.8) X10*3/uL Hgb 9.8 L (12.0-16.0) g/dl Hct 29.7 L (37-47) % Plt Count 410 H (160-400) X10*3/uL BMP 08/04/20 05:51 Sodium 135 Potassium 3.8 Chloride 102 Carbon Dioxide 25 BUN 5 L Creatinine 0.74 Calcium 8.4 Liver Function 08/04/20 Range/Units 05:51 Total Bilirubin 0.9 (0.0-1.0) mg/dL Direct Bilirubin 0.3 (0.0-0.5) mg/dL AST 79 H (5-31) U/L ALT 326 H (0-31) U/L Alkaline Phosphatase 250 H (39-117) U/L Albumin 3.3 L (3.5-5.0) g/dL Microbiology Microbiology Results: Microbiology 08/02/20 08:06 Blood - Venous Blood Culture - Preliminary No growth after 24 hours. 08/02/20 07:50 Blood - Venous Blood Culture - Preliminary No growth after 24 hours. 08/02/20 00:00 Urine clean catch - Clean Catch Midstream Urine Culture - Final No growth. Imaging US - abdomen: Attestation: I personally reviewed and interpreted this imaging study as follows: (MRI abdomen--normal CBS< no stone or stricture seen) Assessment and Plan (1) Transaminitis: Status: Acute 1/ Sudden onset disturbed liver function w/ abdominal pain and raised CRP on background of tick bites. So far imaging unremarkable with no evidence of CBD dilation or stones/strictures, no evidence of budd chiari. CPK nml making muscle origin less likely. no evidence of PSC on imaging. 2/ Anemia, no overt GI bleeding, but does have gastric bypass, may have malabsorption, or hemolysis from underlying process. DDX: tick related disease, viral hepatitis, infiltrative liver disease e.g sarcoidosis, lymphoma, autoimmune hepatitis, DILI SOD type 2 could be possible, but normally would not expect this high of a CRP and at least some ductal dilation, CBD remains thin. PLAN: 1/ cont with zosyn for the moment as LFT are down trending as is CRP 2/ recommend liver bx 3/ check tick panel 4/ await other viral path 5/ if LFt dont; fully improve and CRP doesn't normalize then might consider trial of steroids 6/ check iron studies, b12/folic and hemolysis labs, peripheral smear
[2020-08-04] MEDS: 0.9 % Sodium Chloride Flush 3 ML SYRINGE IVFLUSH ×2 (09:35→23:51)
[2020-08-04] MEDS: Sertraline HCL 100 MG TABLET 300 MG PO (09:35)
[2020-08-04] MEDS: busPIRone HCl 10 MG TABLET PO ×2 (09:36→20:14)
[2020-08-04] MEDS: Famotidine/PF 20 MG/2 ML VIAL IVPUSH ×2 (09:36→20:13)
[2020-08-04] MEDS: Montelukast Sodium 10 MG TABLET PO (09:36)
[2020-08-04] MEDS: Valsartan 160 MG TABLET PO (09:36)
[2020-08-04] MEDS: ondansetron HCL 4 MG/2 ML VIAL IVPUSH ×2 (10:45→19:11)
[2020-08-04] MEDS: Dextrose 5 % and 0.9 % NaCl 1,000 ML 100 ML IVCONT ×2 (10:47→23:50)
[2020-08-04 11:32] LABS: Glucose, Whole Blood 101 mg/dL (60-115)
[2020-08-04] MEDS: Albuterol Sulfate (0.083%) 2.5 MG/3 ML VIAL.NEB INHALE ×3 (11:56→20:29)
[2020-08-04] MEDS: HYDROmorphone HCl 2 MG/ML VIAL 1.5 MG IVPUSH ×2 (13:37→20:13)
[2020-08-04] MEDS: diphenhydrAMINE HCL 50 MG/ML VIAL IVPUSH ×2 (13:38→20:13)
[2020-08-04 13:42] LABS: Immunoglobulin G 723 mg/dL (600-1640)
--- NOTE | 2020-08-04 14:01 | HO.PM.IMPN ---
Subjective Subjective Date of Service: 08/04/20 Interval History: continued severe RUQ pain denies APAP or other drug/toxin ingestions multiple tick bites recently Physical Exam Vital Signs: Vital Signs: Last Vital Signs Temp 97.2 F 08/04/20 11:55 Pulse 84 08/04/20 11:58 Resp 18 08/04/20 13:37 BP 111/62 08/04/20 11:55 Pulse Ox 94 08/04/20 11:55 Body Mass Index 36.6 Gen: in no acute distress HEENT: sclera anicteric, moist mucus membranes Neck: supple Lungs: soft expiratory wheezes Heart: regular rate and rhythm, no murmurs Abd: soft, obese, RUQ tender Ext: no edema Skin: warm/well-perfused Neuro: alert and oriented x3, no focal findings Psych: appropriate affect Objective Data Current Medications Generic Name Dose Route Start Last Admin Trade Name Freq PRN Reason Stop Dose Admin Albuterol Sulfate 2 puff 08/02/20 11:04 Albuterol Sulfate 90 Mcg 8 Gm Inhaler INHALE Q4H PRN Wheezing Albuterol Sulfate 2.5 mg 08/04/20 12:00 08/04/20 11:56 Albuterol Sulfate (0.083%) 2.5 Mg/3 Ml Vial.Neb INHALE 2.5 mg RQ4H WHILE AWAKE LEANNA Administration Buspirone HCl 10 mg 08/02/20 21:00 08/04/20 09:36 Buspirone Hcl 10 Mg Tablet PO 10 mg BID LEANNA Administration Diphenhydramine HCl 50 mg 08/04/20 10:18 08/04/20 13:38 Diphenhydramine Hcl 50 Mg/Ml Vial IVPUSH 50 mg Q6H PRN Administration Itching Famotidine 20 mg 08/02/20 11:15 08/04/20 09:36 Famotidine/Pf 20 Mg/2 Ml Vial IVPUSH 20 mg BID LEANNA Administration Fluticasone/Vilanterol 1 puff 08/05/20 08:00 Fluticasone/Vilanterol 200/25 Blst.W.Dev INHALE RDAILY LEANNA Hydromorphone HCl 1.5 mg 08/04/20 12:07 08/04/20 13:37 Hydromorphone Hcl 2 Mg/Ml Vial IVPUSH 1.5 mg Q3H PRN Administration Pain, Severe (Pain Scale 7-10) Dextrose/Sodium Chloride 1,000 mls @ 100 mls/hr 08/02/20 11:15 08/04/20 10:47 D5ns IVCONT 100 mls/hr .Q10H LEANNA Administration Piperacillin Sod/Tazobactam 50 mls @ 100 mls/hr 08/02/20 12:00 08/04/20 12:43 Sod 3.375 gm/ Sodium Chloride IV Infused Q6H LEANNA Infusion Montelukast Sodium 10 mg 08/03/20 09:00 08/04/20 09:36 Montelukast Sodium 10 Mg Tablet PO 10 mg DAILY LEANNA Administration Ondansetron HCl 4 mg 08/02/20 11:04 08/04/20 10:45 Ondansetron Hcl 4 Mg/2 Ml Vial IVPUSH 4 mg Q8H PRN Administration Nausea and Vomiting Senna 8.6 mg 08/02/20 11:14 08/03/20 17:17 Sennosides 8.6 Mg Tablet PO 8.6 mg BEDTIME PRN Administration constipation Sertraline HCl 300 mg 08/03/20 09:00 08/04/20 09:35 Sertraline Hcl 100 Mg Tablet PO 300 mg DAILY LEANNA Administration Sodium Chloride 3 ml 08/02/20 16:00 08/04/20 09:35 0.9 % Sodium Chloride Flush 3 Ml Syringe IVFLUSH 3 ml QSHIFT LEANNA Administration Tiotropium [place] 1 puff 08/03/20 09:00 08/04/20 07:51 Tiotropium [place] 18 Mcg Cap.W.Dev INHALE 1 puff DAILY LEANNA Administration Tiotropium [place] 1 puff 08/05/20 08:00 Tiotropium [place] 18 Mcg Cap.W.Dev INHALE RDAILY LEANNA Valsartan 160 mg 08/03/20 09:00 08/04/20 09:36 Valsartan 160 Mg Tablet PO 160 mg DAILY LEANNA Administration Labs CBC & Chem 7: 08/04/20 05:51 08/04/20 05:51 Labs: Laboratory Results WBC 9.2 X10*3/uL (4.8-10.8) 08/04/20 05:51 RBC 3.06 X10*6/uL (4.20-5.50) L 08/04/20 05:51 Hgb 9.8 g/dl (12.0-16.0) L 08/04/20 05:51 Hct 29.7 % (37-47) L 08/04/20 05:51 MCV 97.1 fL (80-98) 08/04/20 05:51 MCH 32.0 pg (27.0-33.0) 08/04/20 05:51 MCHC 33.0 g/dl (31.0-35.0) 08/04/20 05:51 RDW 13.8 % (11.0-16.0) 08/04/20 05:51 Plt Count 410 X10*3/uL (160-400) H 08/04/20 05:51 MPV 8.6 fL (9.4-12.3) L 08/04/20 05:51 Immature Gran % (Auto) 0.3 % (0.0-0.4) 08/04/20 05:51 Neut % (Auto) 55.7 % (45-73) 08/04/20 05:51 Lymph % (Auto) 29.0 % (20-40) 08/04/20 05:51 [place] % (Auto) 7.0 % (2-11) 08/04/20 05:51 Eos % (Auto) 7.1 % (0-4) H 08/04/20 05:51 Baso % (Auto) 0.9 % (0-2) 08/04/20 05:51 Lymph # (Auto) 2.7 X10*3/uL (1.2-4.9) 08/04/20 05:51 [place] # (Auto) 0.6 X10*3/uL (0.1-1.2) 08/04/20 05:51 Eos # (Auto) 0.7 X10*3/uL (0.0-0.4) H 08/04/20 05:51 Baso # (Auto) 0.1 X10*3/uL (0.0-0.2) 08/04/20 05:51 Abs Immat Gran (auto) 0.03 X10*3/uL (0.00-0.03) 08/04/20 05:51 Absolute Neuts (auto) 5.1 X10*3/uL (2.0-8.3) 08/04/20 05:51 Absolute Nucleated RBC 0.000 X10*3/uL (0.0-0.012) 08/04/20 05:51 Nucleated RBC % (auto) 0.0 /100WBC (0.0-0.2) 08/04/20 05:51 PT 14.8 SEC (10.8-13.0) H 08/02/20 13:19 INR 1.2 (0.9-1.1) H 08/02/20 13:19 Hold Blue Top SEE NOTE 08/02/20 06:34 Sodium 135 mmol/L (135-145) 08/04/20 05:51 Potassium 3.8 mmol/L (3.3-5.1) 08/04/20 05:51 Chloride 102 mmol/L (96-108) 08/04/20 05:51 Carbon Dioxide 25 mmol/L (22-29) 08/04/20 05:51 Anion Gap 12 (12-20) 08/04/20 05:51 BUN 5 mg/dL (9-16) L 08/04/20 05:51 Creatinine 0.74 mg/dL (0.5-1.4) 08/04/20 05:51 Estim Creat Clear Calc 97.3 08/04/20 05:51 Estimated GFR > 60 08/04/20 05:51 POC Glucose 101 mg/dL (60-115) 08/04/20 11:19 Random Glucose 106 mg/dL (60-115) 08/04/20 05:51 Lactic Acid 0.6 mmol/L (0.5-2.0) 08/02/20 07:50 Calcium 8.4 mg/dL (8.4-10.2) 08/04/20 05:51 Total Bilirubin 0.9 mg/dL (0.0-1.0) 08/04/20 05:51 Direct Bilirubin 0.3 mg/dL (0.0-0.5) 08/04/20 05:51 AST 79 U/L (5-31) H 08/04/20 05:51 ALT 326 U/L (0-31) H 08/04/20 05:51 Alkaline Phosphatase 250 U/L (39-117) H 08/04/20 05:51 C-Reactive Protein 8.09 mg/dL (< or = 0.50) H 08/04/20 05:51 Total Protein 5.6 g/dL (6.5-8.0) L 08/04/20 05:51 Albumin 3.3 g/dL (3.5-5.0) L 08/04/20 05:51 Lipase 20 U/L (8-78) 08/02/20 06:34 Urine Color DARK YELLOW 08/02/20 06:39 Urine Appearance CLEAR 08/02/20 06:39 Urine pH 6.0 (5.0-8.0) 08/02/20 06:39 Ur Specific [place] 1.015 (1.005-1.025) 08/02/20 06:39 Urine Protein NEG MG/DL (NEG-TRACE) 08/02/20 06:39 Urine Glucose (UA) NEG MG/DL (NEG) 08/02/20 06:39 Urine Ketones NEG MG/DL (NEG) 08/02/20 06:39 Urine Blood NEG (NEG) 08/02/20 06:39 Urine Nitrite NEG (NEG) 08/02/20 06:39 Ur Leukocyte Esterase TRACE (NEG) H 08/02/20 06:39 Urine RBC 0 /HPF (0) 08/02/20 06:39 Urine WBC 5-9 /HPF (0-4) H 08/02/20 06:39 Ur Squamous Epith Cells 1+ /LPF 08/02/20 06:39 Urine Bacteria 2+ /LPF 08/02/20 06:39 Acetaminophen < 1 mcg/mL (<30) 08/02/20 13:19 IgG 723 mg/dL (600-1640) 08/02/20 13:20 COVID-19 (LESLIE) Negative (Negative) 08/02/20 13:42 COVID-19 Clin Com See Note 08/02/20 13:42 Hep Bs Antigen Negative (Negative) 08/02/20 13:19 Hep Bs Antibody REACTIVE (Nonreactive) 08/02/20 13:19 Hep B Core Total Ab Nonreactive (Nonreactive) 08/02/20 13:19 Hepatitis C Ab (EIA) Nonreactive (Nonreactive) 08/02/20 13:19 Impressions Abdomen Ultrasound 08/02/20 07:53 IMPRESSION: Hemangioma right anterior hepatic lobe.. It was visualized on previous MRI and ultrasound but not on CT. Visualized pancreas, gallbladder, CBD and the right kidney is unremarkable. Doppler Study Ultrasound 08/03/20 08:35 IMPRESSION: * Liver has a normal sonographic appearance. * The hepatic veins are normal. No evidence of Budd-Chiari. Abdomen MRI 08/03/20 09:21 IMPRESSION: * No acute imaging abnormalities in the abdomen. * No evidence of choledocholithiasis or biliary tract obstruction, status post cholecystectomy. * 0.8 cm hemangioma of hepatic segment 8 is unchanged in size compared to 08/01/2019. No suspicious liver lesion. Microbiology Microbiology Results: Microbiology 08/02/20 08:06 Blood - Venous Blood Culture - Preliminary No growth after 48 hours. 08/02/20 07:50 Blood - Venous Blood Culture - Preliminary No growth after 48 hours. 08/02/20 00:00 Urine clean catch - Clean Catch Midstream Urine Culture - Final No growth. Assessment and Plan (1) Abdominal pain: Status: Acute (2) Transaminitis: Status: Acute (3) Urinary tract infection: Status: Acute Assessment and Plan: hospital d#3 49yo F with hx gastric bypass + cholecystectomy with intermittent abd pain admitted with transaminitis associated with acute abd pain # acute abd pain # transaminitis - transaminases + CRP decreasing. HBsAg neg, HCV Ab neg. no evidence of Budd-Chiari or biliary sludging on imaging. JOSÉ MIGUEL, ASMA, EBV, CMV, HSV pending. per GI will order liver biopsy and also tickborne illness panel. continue IV fluid, clear liquid diet, IV H2RA. continue IV pip/tristan d#3 due to leukocytosis/low-grade fever on admission though no clear source of infection at this time # HTN - BP soft- continue valsartan, hold HCTZ # depression - continue sertraline, buspirone # asthma - continue LAMA, ICS/LABA, LTRA, prn ENDY # VTE ppx - SCDs
[2020-08-04 15:48] LABS: Immature Retic Fraction 21.4 % (3.0-15.9); Lactate Dehydrogenase 131 U/L (122-220); Retic HGB Equivalent 32.2 pg (30.0-35.0); Reticulocyte Percent 2.5 % (0.5-1.8); Reticulocytes Absolute 0.076 X10*6/uL (0.026-0.095)
[2020-08-05] VITALS (13 sets, daily range): BP systolic 102–123; BP diastolic 59–70; PULSE 70–92; RESP 16–20; TEMP 36.1–36.6; O2SAT 92–99
[2020-08-05] MEDS: diphenhydrAMINE HCL 50 MG/ML VIAL IVPUSH ×4 (02:07→20:03)
[2020-08-05] MEDS: HYDROmorphone HCl 2 MG/ML VIAL 1.5 MG IVPUSH ×6 (02:07→23:37)
[2020-08-05] MEDS: ondansetron HCL 4 MG/2 ML VIAL IVPUSH ×3 (05:49→22:23)
[2020-08-05] MEDS: Piperacillin Sodium/Tazobactam 3.375 GM in 0.9 % Sodium Chloride 50 ML IV ×4 (05:52→23:40)
[2020-08-05 06:40] LABS: Hematocrit 29.9 % (37-47); Hemoglobin 9.7 g/dl (12.0-16.0); Mean Corpuscular HGB Conc 32.4 g/dl (31.0-35.0); Mean Corpuscular Hemoglobin 31.5 pg (27.0-33.0); Mean Corpuscular Volume 97.1 fL (80-98); Mean Platelet Volume 8.8 fL (9.4-12.3); Platelet Count 464 X10*3/uL (160-400); Red Blood Count 3.08 X10*6/uL (4.20-5.50); Red Cell Distribution Width 13.9 % (11.0-16.0); White Blood Count 7.8 X10*3/uL (4.8-10.8)
[2020-08-05 06:54] LABS: INTERNATIONAL NORM RATIO 1.1 (0.9-1.1); Prothrombin Time 13.2 SEC (10.8-13.0)
[2020-08-05 07:02] LABS: Alanine Aminotransferase 232 U/L (0-31); Albumin Level 3.4 g/dL (3.5-5.0); Alkaline Phosphatase 228 U/L (39-117); Anion Gap 11 (12-20); Aspartate Amino Transferase 34 U/L (5-31); Bilirubin Total 0.7 mg/dL (0.0-1.0); Blood Urea Nitrogen 4 mg/dL (9-16); Calcium 8.6 mg/dL (8.4-10.2); Carbon Dioxide 28 mmol/L (22-29); Chloride 106 mmol/L (96-108); Creatinine Clr Calc Pharmacy 88.9; Estimated Glomerular Filt Rate > 60; Glucose Random 104 mg/dL (60-115); Potassium 4.3 mmol/L (3.3-5.1); Sodium 141 mmol/L (135-145); Total Protein 5.7 g/dL (6.5-8.0)
[2020-08-05] MEDS: Fluticasone/Vilanterol 200/25 BLST.W.DEV 1 PUFF INHALE (07:39)
[2020-08-05] MEDS: Albuterol Sulfate (0.083%) 2.5 MG/3 ML VIAL.NEB INHALE ×4 (07:39→20:13)
[2020-08-05] MEDS: Famotidine/PF 20 MG/2 ML VIAL IVPUSH (08:07)
[2020-08-05] MEDS: Sertraline HCL 100 MG TABLET 300 MG PO (08:08)
[2020-08-05] MEDS: Montelukast Sodium 10 MG TABLET PO (08:08)
[2020-08-05] MEDS: 0.9 % Sodium Chloride Flush 3 ML SYRINGE IVFLUSH (08:09)
[2020-08-05] MEDS: busPIRone HCl 10 MG TABLET PO ×2 (08:09→20:08)
[2020-08-05 08:14] LABS: Hepatitis A Antibody IgM 0.17 Index (0-0.79); ~HepC Num1 0.05 S/CO (0.00-0.79); ~Hepatitis A Antibody IgM Nonreactive (Nonreactive)
[2020-08-05 08:31] LABS: CMV DNA PCR Qn Source Whole Blood; CMV DNA Qn PCR <2.30 log IU/mL (<2.30); CMV DNA Qn Real Time PCR <200 IU/mL (<200)
[2020-08-05 08:40] LABS: Immature Retic Fraction 19.1 % (3.0-15.9); Retic HGB Equivalent 31.4 pg (30.0-35.0); Reticulocyte Percent 2.4 % (0.5-1.8); Reticulocytes Absolute 0.074 X10*6/uL (0.026-0.095)
[2020-08-05 08:49] LABS: Iron 74 mcg/dL (30-160); Lactate Dehydrogenase 133 U/L (122-220); Percent Iron Saturation 30 % (15-50); Total Iron Binding Capacity 244 mcg/dL (228-428); Unsaturated Iron Binding 170 ug/dL
[2020-08-05 08:51] LABS: Lyme Abs Screen <0.90 index
[2020-08-05 09:10] LABS: Ferritin 248 ng/mL (10-250)
[2020-08-05 09:27] LABS: Folate 16.6 ng/mL (> or = 4.0); Vitamin B12 595 pg/mL (200-900)
[2020-08-05] MEDS: Lidocaine HCl 1 % MPF 5 ML VIAL SUBCUT (10:20)
[2020-08-05] MEDS: Dextrose 5 % and 0.9 % NaCl 1,000 ML 100 ML IVCONT (10:31)
--- NOTE | 2020-08-05 15:59 | P.PNIM_ITS ---
Subjective Subjective Date of Service: 08/05/20 Interval History: now having a new type of pain with swallowing in her esophagus ongoing RUQ pain went for liver biopsy today Physical Exam Vital Signs: Vital Signs: Last Vital Signs Temp 97.8 F 08/05/20 15:29 Pulse 88 08/05/20 15:53 Resp 16 08/05/20 15:29 BP 106/61 08/05/20 15:29 Pulse Ox 95 08/05/20 15:29 Body Mass Index 36.6 Gen: in no acute distress HEENT: sclera anicteric, moist mucus membranes Neck: supple Lungs: clear bilaterally Heart: regular rate and rhythm, no murmurs Abd: soft, obese, RUQ tender Ext: no edema Skin: warm/well-perfused Neuro: alert and oriented x3, no focal findings Psych: appropriate affect Objective Data Current Medications Generic Name Dose Route Start Last Admin Trade Name Freq PRN Reason Stop Dose Admin Albuterol Sulfate 2 puff 08/02/20 11:04 Albuterol Sulfate 90 Mcg 8 Gm Inhaler INHALE Q4H PRN Wheezing Albuterol Sulfate 2.5 mg 08/04/20 12:00 08/05/20 15:52 Albuterol Sulfate (0.083%) 2.5 Mg/3 Ml Vial.Neb INHALE 2.5 mg RQ4H WHILE AWAKE LEANNA Administration Buspirone HCl 10 mg 08/02/20 21:00 08/05/20 08:09 Buspirone Hcl 10 Mg Tablet PO 10 mg BID LEANNA Administration Diphenhydramine HCl 50 mg 08/04/20 10:18 08/05/20 14:16 Diphenhydramine Hcl 50 Mg/Ml Vial IVPUSH 50 mg Q6H PRN Administration Itching Famotidine 20 mg 08/02/20 11:15 08/05/20 08:07 Famotidine/Pf 20 Mg/2 Ml Vial IVPUSH 20 mg BID LEANNA Administration Fluticasone/Vilanterol 1 puff 08/05/20 08:00 08/05/20 07:39 Fluticasone/Vilanterol 200/25 Blst.W.Dev INHALE 1 puff RDAILY LEANNA Administration Hydromorphone HCl 1.5 mg 08/04/20 12:07 08/05/20 12:55 Hydromorphone Hcl 2 Mg/Ml Vial IVPUSH 1.5 mg Q3H PRN Administration Pain, Severe (Pain Scale 7-10) Piperacillin Sod/Tazobactam 50 mls @ 100 mls/hr 08/02/20 12:00 08/05/20 12:47 Sod 3.375 gm/ Sodium Chloride IV Infused Q6H LEANNA Infusion Montelukast Sodium 10 mg 08/03/20 09:00 08/05/20 08:08 Montelukast Sodium 10 Mg Tablet PO 10 mg DAILY LEANNA Administration Ondansetron HCl 4 mg 08/02/20 11:04 08/05/20 14:16 Ondansetron Hcl 4 Mg/2 Ml Vial IVPUSH 4 mg Q8H PRN Administration Nausea and Vomiting Senna 8.6 mg 08/02/20 11:14 08/03/20 17:17 Sennosides 8.6 Mg Tablet PO 8.6 mg BEDTIME PRN Administration constipation Sertraline HCl 300 mg 08/03/20 09:00 08/05/20 08:08 Sertraline Hcl 100 Mg Tablet PO 300 mg DAILY LEANNA Administration Sodium Chloride 3 ml 08/02/20 16:00 08/05/20 08:09 0.9 % Sodium Chloride Flush 3 Ml Syringe IVFLUSH 3 ml QSHIFT [facility] Administration Tiotropium [place] 1 puff 08/03/20 09:00 08/05/20 11:42 Tiotropium [place] 18 Mcg Cap.W.Dev INHALE 1 puff DAILY LEANNA Administration Tiotropium [place] 1 puff 08/05/20 08:00 08/05/20 07:39 Tiotropium [place] 18 Mcg Cap.W.Dev INHALE 1 puff RDAILY LEANNA Administration Valsartan 160 mg 08/03/20 09:00 08/05/20 08:13 Valsartan 160 Mg Tablet PO Not Given DAILY [facility] Labs CBC & Chem 7: 08/05/20 05:21 08/05/20 05:21 Labs: Laboratory Results - last 24 hr 08/02/20 08/02/20 08/04/20 13:19 13:19 14:16 WBC RBC Hgb Hct MCV MCH MCHC RDW Plt Count MPV Absolute Nucleated RBC Nucleated RBC % (auto) Absolute Retic Percent Retic Immature Retic Fraction Retic Hgb Equivalent PT INR Sodium Potassium Chloride Carbon Dioxide Anion Gap BUN Creatinine Estim Creat Clear Calc Estimated GFR Random Glucose Calcium Iron TIBC % Saturation Unsat Iron Binding Ferritin Total Bilirubin AST ALT Alkaline Phosphatase Lactate Dehydrogenase Total Protein Albumin Vitamin B12 Folate Lyme Screen IgG & IgM <0.90 [place] Progressive Test TNP CMV Specimen Source Whole Blood CMV Qnt PCR IU/mL <200 CMV Qnt PCR log IU/mL <2.30 Hepatitis A IgM Ab Nonreactive 08/05/20 08/05/20 08/05/20 05:21 05:21 05:21 WBC 7.8 RBC 3.08 L Hgb 9.7 L Hct 29.9 L MCV 97.1 MCH 31.5 MCHC 32.4 RDW 13.9 Plt Count 464 H MPV 8.8 L Absolute Nucleated RBC 0.000 Nucleated RBC % (auto) 0.0 Absolute Retic 0.074 Percent Retic 2.4 H Immature Retic Fraction 19.1 H Retic Hgb Equivalent 31.4 PT 13.2 H INR 1.1 Sodium 141 Potassium 4.3 Chloride 106 Carbon Dioxide 28 Anion Gap 11 L BUN 4 L Creatinine 0.81 Estim Creat Clear Calc 88.9 Estimated GFR > 60 Random Glucose 104 Calcium 8.6 Iron 74 TIBC 244 % Saturation 30 Unsat Iron Binding 170 Ferritin 248 Total Bilirubin 0.7 AST 34 H D ALT 232 H Alkaline Phosphatase 228 H Lactate Dehydrogenase 133 Total Protein 5.7 L Albumin 3.4 L Vitamin B12 Folate Lyme Screen IgG & IgM [place] Progressive Test CMV Specimen Source CMV Qnt PCR IU/mL CMV Qnt PCR log IU/mL Hepatitis A IgM Ab 08/05/20 05:21 WBC RBC Hgb Hct MCV MCH MCHC RDW Plt Count MPV Absolute Nucleated RBC Nucleated RBC % (auto) Absolute Retic Percent Retic Immature Retic Fraction Retic Hgb Equivalent PT INR Sodium Potassium Chloride Carbon Dioxide Anion Gap BUN Creatinine Estim Creat Clear Calc Estimated GFR Random Glucose Calcium Iron TIBC % Saturation Unsat Iron Binding Ferritin Total Bilirubin AST ALT Alkaline Phosphatase Lactate Dehydrogenase Total Protein Albumin Vitamin B12 595 Folate 16.6 Lyme Screen IgG & IgM [place] Progressive Test CMV Specimen Source CMV Qnt PCR IU/mL CMV Qnt PCR log IU/mL Hepatitis A IgM Ab Microbiology Microbiology Results: Microbiology 08/02/20 08:06 Blood - Venous Blood Culture - Preliminary No growth after 48 hours. 08/02/20 07:50 Blood - Venous Blood Culture - Preliminary No growth after 48 hours. 08/02/20 00:00 Urine clean catch - Clean Catch Midstream Urine Culture - Final No growth. Assessment and Plan (1) Abdominal pain: Status: Acute (2) Transaminitis: Status: Acute (3) Urinary tract infection: Status: Acute Assessment and Plan: hospital d#4 49yo F with hx gastric bypass + cholecystectomy with intermittent abd pain admitted with transaminitis associated with acute abd pain # acute abd pain # transaminitis - transaminases + CRP decreasing. HAV IgM neg, HBsAg neg, HCV Ab neg, CMV neg. no evidence of Budd-Chiari or biliary sludging on imaging. JOSÉ MIGUEL, ASMA, EBV, HSV, HIV pending. liver biopsy done today- await pathology. Anaplasma/Ehrlichia/Babesia serologies pending. continue IV fluid, clear liquid diet, IV H2RA. continue IV pip/tristan d#4 due to leukocytosis/low-grade fever on admission though no clear source of infection at this time # normocytic anemia - B12/FA, iron studies, LDH normal. recheck CBCd in am along with peripheral smear, haptoglobin, direct Mirza; also send FOBT. likely dilutional. # HTN - BP soft- continue valsartan, hold HCTZ # depression - continue sertraline, buspirone # asthma - continue LAMA, ICS/LABA, LTRA, prn ENDY # VTE ppx - SCDs
[2020-08-05] MEDS: Pantoprazole Sodium 40 MG/10 ML VIAL IVPUSH (16:22)
[2020-08-05 19:21] LABS: Transglutaminase Ab IgG 1 U/mL; Transglutaminase IgA 1 U/mL
[2020-08-05] MEDS: Mag&Al/Sim/Diphenhyd/Lidocaine 10 ML ORAL.SUSP PO (19:59)
[2020-08-05 22:37] LABS: EBV DNA PCR Not Detected (Not Detected); EBV Source Whole Blood
[2020-08-06] VITALS (11 sets, daily range): BP systolic 109–153; BP diastolic 64–87; PULSE 74–85; RESP 14–17; TEMP 36.2–37; O2SAT 94–97
[2020-08-06] MEDS: diphenhydrAMINE HCL 50 MG/ML VIAL IVPUSH ×4 (01:56→22:38)
[2020-08-06] MEDS: HYDROmorphone HCl 2 MG/ML VIAL 1.5 MG IVPUSH ×2 (03:27→08:06)
[2020-08-06] MEDS: Pantoprazole Sodium 40 MG/10 ML VIAL IVPUSH ×2 (06:12→15:52)
[2020-08-06] MEDS: Piperacillin Sodium/Tazobactam 3.375 GM in 0.9 % Sodium Chloride 50 ML IV (06:32)
[2020-08-06 06:47] LABS: Hematocrit 32.3 % (37-47); Hemoglobin 10.5 g/dl (12.0-16.0); Mean Corpuscular HGB Conc 32.5 g/dl (31.0-35.0); Mean Corpuscular Hemoglobin 31.3 pg (27.0-33.0); Mean Corpuscular Volume 96.4 fL (80-98); Mean Platelet Volume 8.5 fL (9.4-12.3); Platelet Count 530 X10*3/uL (160-400); Red Blood Count 3.35 X10*6/uL (4.20-5.50); White Blood Count 9.9 X10*3/uL (4.8-10.8)
[2020-08-06 07:31] LABS: Alanine Aminotransferase 194 U/L (0-31); Albumin Level 3.9 g/dL (3.5-5.0); Alkaline Phosphatase 243 U/L (39-117); Anion Gap 16 (12-20); Aspartate Amino Transferase 23 U/L (5-31); Bilirubin Total 0.5 mg/dL (0.0-1.0); Blood Urea Nitrogen 4 mg/dL (9-16); C Reactive Protein 4.19 mg/dL (< or = 0.50); Calcium 9.2 mg/dL (8.4-10.2); Carbon Dioxide 23 mmol/L (22-29); Chloride 104 mmol/L (96-108); Creatinine Clr Calc Pharmacy 82.8; Estimated Glomerular Filt Rate > 60; Glucose Random 82 mg/dL (60-115); Potassium 3.6 mmol/L (3.3-5.1); Sodium 139 mmol/L (135-145); Total Protein 6.5 g/dL (6.5-8.0)
[2020-08-06 07:55] LABS: HIV AB/AG Nonreactive (Nonreactive)
[2020-08-06] MEDS: Albuterol Sulfate (0.083%) 2.5 MG/3 ML VIAL.NEB INHALE ×2 (08:00→15:14)
[2020-08-06] MEDS: Fluticasone/Vilanterol 200/25 BLST.W.DEV 1 PUFF INHALE (08:00)
[2020-08-06] MEDS: ondansetron HCL 4 MG/2 ML VIAL IVPUSH ×2 (08:06→17:22)
[2020-08-06] MEDS: 0.9 % Sodium Chloride Flush 3 ML SYRINGE IVFLUSH (08:07)
--- NOTE | 2020-08-06 09:56 | P.CDIC_ITS ---
CDI Concurrent Query Service Date: 08/06/20 Documentation Clarification: Please clarify if you are treating a proba ble/suspected/likely or confirmed: Urinary Tract Infection, Treat, rule out, resolved Please specify if known PLEASE DO NOT DELETE/MODIFY EXISTING CONTENT Additional information is needed in order to code to the highest accuracy and appropriate Severity of Illness (SOI). Please clarify the information noted below in your progress notes and discharge summary. Risk Factors/Clinical Indicators/Treatments Ed: very mild urinary frequency, no dysuria, UA shows mild UTI Trace leukocyte, WBC 5-9, Bacteria 1+, neg Nitrite, clear/straw PN 08/03 - ? UTI, urine culture shows no growth. PN 08/05 - Abdominal pain, transminitis, leukocytosis and low grade temp on admit. No clear source of infection found. CDS: Brandi Thomas CCS, CDIS Contact Number: [phone] Please Review the information above and exercise your independent professional judgment in responding to the query. If you concur, pleas document in the PROG RESS NOTES and DISCHARGE SUMMARY. If you do not agree with the query, please document in the query above. THIS QUERY IS PART OF THE PERMANENT MEDICAL RECORD
[2020-08-06 11:38] LABS: OBS1 NEGATIVE (NEGATIVE)
[2020-08-06 11:40] LABS: OBS Int Ctl Valid YES
[2020-08-06 11:47] LABS: UPreg QC Valid YES; Urine Pregnancy NEGATIVE (NEGATIVE)
--- NOTE | 2020-08-06 12:12 | HO.PM.IMPN ---
Subjective Subjective Date of Service: 08/06/20 Interval History: itchy eyes, abd pain, a bit better Cardiovascular Cardiovascular: Reports no additional cardiovascular complaints Gastrointestinal Gastrointestinal: Reports no additional gastrointestinal complaints Physical Exam Vital Signs: Vital Signs: Last Vital Signs Temp 97.3 F 08/06/20 11:23 Pulse 81 08/06/20 11:23 Resp 16 08/06/20 11:23 BP 127/79 08/06/20 11:23 Pulse Ox 97 08/06/20 11:23 Body Mass Index 36.6 General: AO X 3, no acute distress Resp: CTA bilateral CVS: S1,S2,RRR GI: soft, diffuse tender, non distended Neuro: motor grossly intact Psych: appropriate affect Objective Data Current Medications Generic Name Dose Route Start Last Admin Trade Name Freq PRN Reason Stop Dose Admin Albuterol Sulfate 2 puff 08/02/20 11:04 Albuterol Sulfate 90 Mcg 8 Gm Inhaler INHALE Q4H PRN Wheezing Albuterol Sulfate 2.5 mg 08/04/20 12:00 08/06/20 11:42 Albuterol Sulfate (0.083%) 2.5 Mg/3 Ml Vial.Neb INHALE Not Given RQ4H WHILE AWAKE LEANNA Buspirone HCl 10 mg 08/02/20 21:00 08/06/20 08:07 Buspirone Hcl 10 Mg Tablet PO Not Given BID LEANNA Diphenhydramine HCl 50 mg 08/04/20 10:18 08/06/20 08:05 Diphenhydramine Hcl 50 Mg/Ml Vial IVPUSH 50 mg Q6H PRN Administration Itching Fluticasone/Vilanterol 1 puff 08/05/20 08:00 08/06/20 08:00 Fluticasone/Vilanterol 200/25 Blst.W.Dev INHALE 1 puff RDAILY LEANNA Administration Hydromorphone HCl 1 mg 08/06/20 09:48 Hydromorphone Hcl 2 Mg/Ml Vial IVPUSH Q6H PRN Pain, Severe (Pain Scale 7-10) Lidocaine/Diphenhydr/Alum/Mg/Simeth 10 ml 08/05/20 16:06 08/05/20 19:59 Mag&Al/Sim/Diphenhyd/Lidocaine 10 Ml Oral.Susp PO 10 ml Q4H PRN Administration dysphagia Protocol Montelukast Sodium 10 mg 08/03/20 09:00 08/06/20 08:07 Montelukast Sodium 10 Mg Tablet PO Not Given DAILY [facility] Ondansetron HCl 4 mg 08/02/20 11:04 08/06/20 08:06 Ondansetron Hcl 4 Mg/2 Ml Vial IVPUSH 4 mg Q8H PRN Administration Nausea and Vomiting Pantoprazole Sodium 40 mg 08/05/20 16:30 08/06/20 06:12 Pantoprazole Sodium 40 Mg/10 Ml Vial IVPUSH 40 mg BID@0630,1630 [facility] Administration Senna 8.6 mg 08/02/20 11:14 08/03/20 17:17 Sennosides 8.6 Mg Tablet PO 8.6 mg BEDTIME PRN Administration constipation Sertraline HCl 300 mg 08/03/20 09:00 08/06/20 08:07 Sertraline Hcl 100 Mg Tablet PO Not Given DAILY [facility] Sodium Chloride 3 ml 08/02/20 16:00 08/06/20 08:07 0.9 % Sodium Chloride Flush 3 Ml Syringe IVFLUSH 3 ml QSHIFT [facility] Administration Tiotropium [place] 1 puff 08/05/20 08:00 08/06/20 08:00 Tiotropium [place] 18 Mcg Cap.W.Dev INHALE 1 puff RDAILY [facility] Administration Valsartan 160 mg 08/03/20 09:00 08/06/20 08:07 Valsartan 160 Mg Tablet PO Not Given DAILY [facility] Labs CBC & Chem 7: 08/06/20 06:10 08/06/20 06:10 Microbiology Microbiology Results: Microbiology 08/02/20 08:06 Blood - Venous Blood Culture - Preliminary No growth after 48 hours. 08/02/20 07:50 Blood - Venous Blood Culture - Preliminary No growth after 48 hours. 08/02/20 00:00 Urine clean catch - Clean Catch Midstream Urine Culture - Final No growth. Assessment and Plan (1) Abdominal pain: Status: Acute (2) Transaminitis: Status: Acute (3) Urinary tract infection: Status: Acute Assessment and Plan: hospital d#4 49yo F with hx gastric bypass + cholecystectomy with intermittent abd pain admitted with transaminitis associated with acute abd pain acute abd pain with transaminitis - transaminases + CRP decreasing. HAV IgM neg, HBsAg neg, HCV Ab neg, CMV neg, ebv neg, hiv neg. . no evidence of Budd-Chiari or biliary sludging on imaging. JOSÉ MIGUEL, ASMA, HSV, pending. liver biopsy done 08/05- await pathology. Anaplasma/Ehrlichia/Babesia serologies pending. continue IV H2RA. dc pip/tristan completed 4 days, no evidence of bacterial infection no evidence of UTI normocytic anemia B12/FA, iron studies, LDH normal. HTN continue valsartan, hold HCTZ depression continue sertraline, buspirone asthma - continue LAMA, ICS/LABA, LTRA, prn ENDY VTE ppx - SCDs
--- NOTE | 2020-08-06 12:35 | MHC.SHP ---
Pre-Procedural Eval Section A The patient is an INPATIENT: Yes The History & Physical has been completed within 30 days and I have reviewed it.: Yes Section B Chief Complaint: abd pain Allergies: Allergies Allergy/AdvReac Type Severity Reaction Status Date / Time iron [IRON] Allergy Severe ANAPHYLAXIS Verified 08/02/20 06:14 Opioids - Morphine Analogues Allergy Intermediate RASH Verified 08/02/20 06:14 [OPIOIDS - MORPHINE ANALOGUES] erthromycin Allergy Unknown Nausea Uncoded 02/08/20 11:38 Plan I have reviewed the history and physical and performed a pertinent physical examination on my patient. No changes have occurred unless specified. EGD for assessment of anemia and esophagitis.
[2020-08-06 12:44] LABS: Soluble Liver Ag Autoantibody <20.1 U (0.0-20.0)
[2020-08-06 12:44] LABS: Smooth Muscle Antibody <20 U (<20)
--- NOTE | 2020-08-06 13:09 | MHC.CM.PN ---
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 per documentation current plan;(continue with iv zosyn (lft and crp trending down) continue to monitor the following labs, liver bx results, tick panel,viral path, lfts and crp iron studies, vit b12/folic and hemolysislabs and peripheral smear) discharge plan home [facility] amelia fernandez
--- NOTE | 2020-08-06 13:23 | HO.ANESPROP2 ---
FORM[facility]LY [facility] Active Problems Active Problems: All Active Problems (Updated 08/06/20 @ 11:22 by Francesca Mason, RN) Periumbilical pain (Acute) Abdominal pain (Acute) Urinary tract infection (Acute) Transaminitis (Acute) Past Medical History Medical History (Updated 08/06/20 @ 11:22 by Francesca Mason RN) Asthma Chronic RUQ pain Crohn's colitis Gastroparesis GERD (gastroesophageal reflux disease) Surgical History Surgical History Bariatric surgery status S/P cholecystectomy Social History Social History Household Members: Significant Other Housing: Apartment Alcohol intake: never Smoking Status: Never smoker Use of substances other than those prescribed or required for medical reasons: No Currently Displaying Signs/Symptoms of Drug Intoxication Withdrawal: No Any prior treatment program specific to substance use: No Have you been hit, kicked, punched, or otherwise hurt by someone within the past year? If so, by whom?: No Do you feel safe in your current relationship?: Yes Is there a partner from a previous relationship who is making you feel unsafe now?: No Are you made to feel afraid or neglected: No Spiritual Healthcare Practices: Hoahaoism Are you DNR?: No Advance Directives: No Advance Directives Information Provided: No Do you have thoughts of harming others: None Do you have a plan to hurt others: No Plan Recently lost weight without trying: No Nutrition Risks: No Nutritional Risk Patient : No : No Poor oral hygiene: No service: No Current occupational status: employed Meds Allergies Allergy/AdvReac Type Severity Reaction Status Date / Time iron [IRON] Allergy Severe ANAPHYLAXIS Verified 08/02/20 06:14 Opioids - Morphine Analogues Allergy Intermediate RASH Verified 08/02/20 06:14 [OPIOIDS - MORPHINE ANALOGUES] erthromycin Allergy Unknown Nausea Uncoded 02/08/20 11:38 Active Medications: Current Medications Generic Name Dose Route Start Last Admin Trade Name Freq PRN Reason Stop Dose Admin Albuterol Sulfate 2 puff 08/02/20 11:04 Albuterol Sulfate 90 Mcg 8 Gm Inhaler INHALE Q4H PRN Wheezing Albuterol Sulfate 2.5 mg 08/04/20 12:00 08/06/20 11:42 Albuterol Sulfate (0.083%) 2.5 Mg/3 Ml Vial.Neb INHALE Not Given RQ4H WHILE AWAKE LEANNA Buspirone HCl 10 mg 08/02/20 21:00 08/06/20 08:07 Buspirone Hcl 10 Mg Tablet PO Not Given BID LEANNA Diphenhydramine HCl 50 mg 08/04/20 10:18 08/06/20 08:05 Diphenhydramine Hcl 50 Mg/Ml Vial IVPUSH 50 mg Q6H PRN Administration Itching Fluticasone/Vilanterol 1 puff 08/05/20 08:00 08/06/20 08:00 Fluticasone/Vilanterol 200/25 Blst.W.Dev INHALE 1 puff RDAILY LEANNA Administration Hydromorphone HCl 1 mg 08/06/20 09:48 Hydromorphone Hcl 2 Mg/Ml Vial IVPUSH Q6H PRN Pain, Severe (Pain Scale 7-10) Lidocaine/Diphenhydr/Alum/Mg/Simeth 10 ml 08/05/20 16:06 08/05/20 19:59 Mag&Al/Sim/Diphenhyd/Lidocaine 10 Ml Oral.Susp PO 10 ml Q4H PRN Administration dysphagia Protocol Montelukast Sodium 10 mg 08/03/20 09:00 08/06/20 08:07 Montelukast Sodium 10 Mg Tablet PO Not Given DAILY LEANNA Ondansetron HCl 4 mg 08/02/20 11:04 08/06/20 08:06 Ondansetron Hcl 4 Mg/2 Ml Vial IVPUSH 4 mg Q8H PRN Administration Nausea and Vomiting Pantoprazole Sodium 40 mg 08/05/20 16:30 08/06/20 06:12 Pantoprazole Sodium 40 Mg/10 Ml Vial IVPUSH 40 mg BID@0630,1630 LEANNA Administration Senna 8.6 mg 08/02/20 11:14 08/03/20 17:17 Sennosides 8.6 Mg Tablet PO 8.6 mg BEDTIME PRN Administration constipation Sertraline HCl 300 mg 08/03/20 09:00 08/06/20 08:07 Sertraline Hcl 100 Mg Tablet PO Not Given DAILY LEANNA Sodium Chloride 3 ml 08/02/20 16:00 08/06/20 08:07 0.9 % Sodium Chloride Flush 3 Ml Syringe IVFLUSH 3 ml QSHIFT [facility] Administration Tiotropium [place] 1 puff 08/05/20 08:00 08/06/20 08:00 Tiotropium [place] 18 Mcg Cap.W.Dev INHALE 1 puff RDAILY LEANNA Administration Valsartan 160 mg 08/03/20 09:00 08/06/20 08:07 Valsartan 160 Mg Tablet PO Not Given DAILY [facility] Home Medications Medication Instructions Recorded Confirmed Last Taken Type Singulair 10 mg PO DAILY 02/08/20 08/02/20 Unknown History albuterol sulfate [ProAir HFA] 2 puff INHALATION Q4-6H PRN 02/08/20 08/02/20 02/08/20 09:00 History buspirone 10 mg PO BID 02/08/20 08/02/20 Unknown History hydrochlorothiazide 25 mg PO DAILY 02/08/20 08/02/20 Unknown History irbesartan 300 mg PO DAILY 02/08/20 08/02/20 Unknown History mometasone-formoterol [Dulera] 2 puff INHALATION BID 02/08/20 08/02/20 02/08/20 09:00 History sertraline [Zoloft] 300 mg PO DAILY 02/08/20 08/02/20 Unknown History tiotropium bromide [Spiriva with 1 cap INHALATION DAILY 08/02/20 08/02/20 Unknown History HandiHaler] Exam Exam Date and Time: August 06, 2020 1323 Height,Weight and Vital Signs: Height 5 ft 2 in Weight 90.718 kg Last Vital Signs Temp 97.3 F 08/06/20 11:23 Pulse 81 08/06/20 11:23 Resp 16 08/06/20 11:23 BP 127/79 08/06/20 11:23 Pulse Ox 97 08/06/20 11:23 Pertinent Lab Results Pertinent Lab Results: Laboratory Tests 08/02/20 08/02/20 08/02/20 06:34 06:34 06:34 WBC 14.7 H RBC 4.16 L Hgb 13.0 Hct 38.8 MCV 93.3 MCH 31.3 MCHC 33.5 RDW 13.5 Plt Count 508 H MPV 8.4 L Immature Gran % (Auto) 0.5 H Neut % (Auto) 76.1 H Lymph % (Auto) 14.8 L [place] % (Auto) 6.0 Eos % (Auto) 2.2 Baso % (Auto) 0.4 Lymph # (Auto) 2.2 [place] # (Auto) 0.9 Eos # (Auto) 0.3 Baso # (Auto) 0.1 Abs Immat Gran (auto) 0.07 H Absolute Neuts (auto) 11.2 H Absolute Nucleated RBC 0.000 Nucleated RBC % (auto) 0.0 Absolute Retic Percent Retic Immature Retic Fraction Retic Hgb Equivalent PT INR Hold Blue Top SEE NOTE Sodium 136 Potassium 4.1 Chloride 100 Carbon Dioxide 25 Anion Gap 15 BUN 12 Creatinine 0.79 Estim Creat Clear Calc 91.2 Estimated GFR > 60 POC Glucose Random Glucose 122 H Lactic Acid Calcium 9.5 Iron TIBC % Saturation Unsat Iron Binding Ferritin Total Bilirubin 1.3 H Direct Bilirubin AST 288 H ALT 516 H Alkaline Phosphatase 258 H D Lactate Dehydrogenase C-Reactive Protein 11.15 H Total Protein 6.8 Albumin 4.1 Lipase 20 Vitamin B12 Folate Urine Color Urine Appearance Urine pH Ur Specific [place] Urine Protein Urine Glucose (UA) Urine Ketones Urine Blood Urine Nitrite Ur Leukocyte Esterase Urine RBC Urine WBC Ur Squamous Epith Cells Urine Bacteria Urine Test Stool Collect Date Stool Occult Blood Stool 2 Collect Date Stool Occult Blood #2 Stool 3 Collect Date Stool Occult Blood #3 Acetaminophen IgG Soluble Liver Antigen Anti-Smooth Muscle Ab Tiss Transglutamin IgG Tiss Transglutamin IgA Lyme Screen IgG & IgM Lyme Progressive Test COVID-19 (LESLIE) COVID-19 Clin Com CMV Specimen Source CMV Qnt PCR IU/mL CMV Qnt PCR log IU/mL EBV Source EBV DNA (PCR) Hepatitis A IgM Ab Hep Bs Antigen Hep Bs Antibody Hep B Core Total Ab Hepatitis C Ab (EIA) HIV 1&2 Ab/P24 Ag 4thGn Direct Antiglob Test PIO, Polyspecific 08/02/20 08/02/20 08/02/20 06:39 07:50 13:19 WBC RBC Hgb Hct MCV MCH MCHC RDW Plt Count MPV Immature Gran % (Auto) Neut % (Auto) Lymph % (Auto) [place] % (Auto) Eos % (Auto) Baso % (Auto) Lymph # (Auto) [place] # (Auto) Eos # (Auto) Baso # (Auto) Abs Immat Gran (auto) Absolute Neuts (auto) Absolute Nucleated RBC Nucleated RBC % (auto) Absolute Retic Percent Retic Immature Retic Fraction Retic Hgb Equivalent PT INR Hold Blue Top Sodium Potassium Chloride Carbon Dioxide Anion Gap BUN Creatinine Estim Creat Clear Calc Estimated GFR POC Glucose Random Glucose Lactic Acid 0.6 Calcium Iron TIBC % Saturation Unsat Iron Binding Ferritin Total Bilirubin Direct Bilirubin AST ALT Alkaline Phosphatase Lactate Dehydrogenase C-Reactive Protein Total Protein Albumin Lipase Vitamin B12 Folate Urine Color DARK YELLOW Urine Appearance CLEAR Urine pH 6.0 Ur Specific [place] 1.015 Urine Protein NEG Urine Glucose (UA) NEG Urine Ketones NEG Urine Blood NEG Urine Nitrite NEG Ur Leukocyte Esterase TRACE H Urine RBC 0 Urine WBC 5-9 H Ur Squamous Epith Cells 1+ Urine Bacteria 2+ Urine Test Stool Collect Date Stool Occult Blood Stool 2 Collect Date Stool Occult Blood #2 Stool 3 Collect Date Stool Occult Blood #3 Acetaminophen IgG Soluble Liver Antigen Anti-Smooth Muscle Ab Tiss Transglutamin IgG Tiss Transglutamin IgA Lyme Screen IgG & IgM Lyme Progressive Test COVID-19 (LESLIE) COVID-19 Clin Com CMV Specimen Source CMV Qnt PCR IU/mL CMV Qnt PCR log IU/mL EBV Source EBV DNA (PCR) Hepatitis A IgM Ab Nonreactive Hep Bs Antigen Negative Hep Bs Antibody REACTIVE Hep B Core Total Ab Nonreactive Hepatitis C Ab (EIA) Nonreactive HIV 1&2 Ab/P24 Ag 4thGn Direct Antiglob Test PIO, Polyspecific 08/02/20 08/02/20 08/02/20 13:19 13:19 13:19 WBC RBC Hgb Hct MCV MCH MCHC RDW Plt Count MPV Immature Gran % (Auto) Neut % (Auto) Lymph % (Auto) [place] % (Auto) Eos % (Auto) Baso % (Auto) Lymph # (Auto) [place] # (Auto) Eos # (Auto) Baso # (Auto) Abs Immat Gran (auto) Absolute Neuts (auto) Absolute Nucleated RBC Nucleated RBC % (auto) Absolute Retic Percent Retic Immature Retic Fraction Retic Hgb Equivalent PT 14.8 H INR 1.2 H Hold Blue Top Sodium Potassium Chloride Carbon Dioxide Anion Gap BUN Creatinine Estim Creat Clear Calc Estimated GFR POC Glucose Random Glucose Lactic Acid Calcium Iron TIBC % Saturation Unsat Iron Binding Ferritin Total Bilirubin Direct Bilirubin AST ALT Alkaline Phosphatase Lactate Dehydrogenase C-Reactive Protein Total Protein Albumin Lipase Vitamin B12 Folate Urine Color Urine Appearance Urine pH Ur Specific [place] Urine Protein Urine Glucose (UA) Urine Ketones Urine Blood Urine Nitrite Ur Leukocyte Esterase Urine RBC Urine WBC Ur Squamous Epith Cells Urine Bacteria Urine Test Stool Collect Date Stool Occult Blood Stool 2 Collect Date Stool Occult Blood #2 Stool 3 Collect Date Stool Occult Blood #3 Acetaminophen IgG Soluble Liver Antigen <20.1 Anti-Smooth Muscle Ab Tiss Transglutamin IgG Tiss Transglutamin IgA Lyme Screen IgG & IgM Lyme Progressive Test COVID-19 (LESLIE) COVID-19 Clin Com CMV Specimen Source Whole Blood CMV Qnt PCR IU/mL <200 CMV Qnt PCR log IU/mL <2.30 EBV Source Whole Blood EBV DNA (PCR) Not Detected Hepatitis A IgM Ab Hep Bs Antigen Hep Bs Antibody Hep B Core Total Ab Hepatitis C Ab (EIA) HIV 1&2 Ab/P24 Ag 4thGn Direct Antiglob Test PIO, Polyspecific 08/02/20 08/02/20 08/02/20 13:19 13:20 13:42 WBC RBC Hgb Hct MCV MCH MCHC RDW Plt Count MPV Immature Gran % (Auto) Neut % (Auto) Lymph % (Auto) [place] % (Auto) Eos % (Auto) Baso % (Auto) Lymph # (Auto) [place] # (Auto) Eos # (Auto) Baso # (Auto) Abs Immat Gran (auto) Absolute Neuts (auto) Absolute Nucleated RBC Nucleated RBC % (auto) Absolute Retic Percent Retic Immature Retic Fraction Retic Hgb Equivalent PT INR Hold Blue Top Sodium Potassium Chloride Carbon Dioxide Anion Gap BUN Creatinine Estim Creat Clear Calc Estimated GFR POC Glucose Random Glucose Lactic Acid Calcium Iron TIBC % Saturation Unsat Iron Binding Ferritin Total Bilirubin Direct Bilirubin AST ALT Alkaline Phosphatase Lactate Dehydrogenase C-Reactive Protein Total Protein Albumin Lipase Vitamin B12 Folate Urine Color Urine Appearance Urine pH Ur Specific [place] Urine Protein Urine Glucose (UA) Urine Ketones Urine Blood Urine Nitrite Ur Leukocyte Esterase Urine RBC Urine WBC Ur Squamous Epith Cells Urine Bacteria Urine Test Stool Collect Date Stool Occult Blood Stool 2 Collect Date Stool Occult Blood #2 Stool 3 Collect Date Stool Occult Blood #3 Acetaminophen < 1 IgG 723 Soluble Liver Antigen Anti-Smooth Muscle Ab <20 Tiss Transglutamin IgG Tiss Transglutamin IgA Lyme Screen IgG & IgM Lyme Progressive Test COVID-19 (LESLIE) Negative COVID-19 Clin Com See Note CMV Specimen Source CMV Qnt PCR IU/mL CMV Qnt PCR log IU/mL EBV Source EBV DNA (PCR) Hepatitis A IgM Ab Hep Bs Antigen Hep Bs Antibody Hep B Core Total Ab Hepatitis C Ab (EIA) HIV 1&2 Ab/P24 Ag 4thGn Direct Antiglob Test PIO, Polyspecific 08/03/20 08/03/20 08/04/20 05:50 05:50 05:51 WBC 11.3 H 9.2 RBC 3.35 L 3.06 L Hgb 10.7 L 9.8 L Hct 32.0 L 29.7 L MCV 95.5 97.1 MCH 31.9 32.0 MCHC 33.4 33.0 RDW 13.9 13.8 Plt Count 399 410 H MPV 8.6 L 8.6 L Immature Gran % (Auto) 0.4 0.3 Neut % (Auto) 66.8 55.7 Lymph % (Auto) 20.4 29.0 [place] % (Auto) 7.2 7.0 Eos % (Auto) 4.7 H 7.1 H Baso % (Auto) 0.5 0.9 Lymph # (Auto) 2.3 2.7 [place] # (Auto) 0.8 0.6 Eos # (Auto) 0.5 H 0.7 H Baso # (Auto) 0.1 0.1 Abs Immat Gran (auto) 0.04 H 0.03 Absolute Neuts (auto) 7.6 5.1 Absolute Nucleated RBC 0.000 0.000 Nucleated RBC % (auto) 0.0 0.0 Absolute Retic 0.076 Percent Retic 2.5 H Immature Retic Fraction 21.4 H Retic Hgb Equivalent 32.2 PT INR Hold Blue Top Sodium 134 L Potassium 3.8 Chloride 101 Carbon Dioxide 26 Anion Gap 11 L BUN 8 L Creatinine 0.80 Estim Creat Clear Calc 90.0 Estimated GFR > 60 POC Glucose Random Glucose 107 Lactic Acid Calcium 8.5 D Iron TIBC % Saturation Unsat Iron Binding Ferritin Total Bilirubin 1.3 H Direct Bilirubin 0.5 AST 272 H ALT 522 H Alkaline Phosphatase 303 H Lactate Dehydrogenase C-Reactive Protein 14.11 H Total Protein 5.7 L Albumin 3.5 Lipase Vitamin B12 Folate Urine Color Urine Appearance Urine pH Ur Specific [place] Urine Protein Urine Glucose (UA) Urine Ketones Urine Blood Urine Nitrite Ur Leukocyte Esterase Urine RBC Urine WBC Ur Squamous Epith Cells Urine Bacteria Urine Test Stool Collect Date Stool Occult Blood Stool 2 Collect Date Stool Occult Blood #2 Stool 3 Collect Date Stool Occult Blood #3 Acetaminophen IgG Soluble Liver Antigen Anti-Smooth Muscle Ab Tiss Transglutamin IgG Tiss Transglutamin IgA Lyme Screen IgG & IgM Lyme Progressive Test COVID-19 (LESLIE) COVID-19 Clin Com CMV Specimen Source CMV Qnt PCR IU/mL CMV Qnt PCR log IU/mL EBV Source EBV DNA (PCR) Hepatitis A IgM Ab Hep Bs Antigen Hep Bs Antibody Hep B Core Total Ab Hepatitis C Ab (EIA) HIV 1&2 Ab/P24 Ag 4thGn Direct Antiglob Test PIO, Polyspecific 08/04/20 08/04/20 08/04/20 05:51 07:23 11:19 WBC RBC Hgb Hct MCV MCH MCHC RDW Plt Count MPV Immature Gran % (Auto) Neut % (Auto) Lymph % (Auto) [place] % (Auto) Eos % (Auto) Baso % (Auto) Lymph # (Auto) [place] # (Auto) Eos # (Auto) Baso # (Auto) Abs Immat Gran (auto) Absolute Neuts (auto) Absolute Nucleated RBC Nucleated RBC % (auto) Absolute Retic Percent Retic Immature Retic Fraction Retic Hgb Equivalent PT INR Hold Blue Top Sodium 135 Potassium 3.8 Chloride 102 Carbon Dioxide 25 Anion Gap 12 BUN 5 L Creatinine 0.74 Estim Creat Clear Calc 97.3 Estimated GFR > 60 POC Glucose 107 101 Random Glucose 106 Lactic Acid Calcium 8.4 Iron TIBC % Saturation Unsat Iron Binding Ferritin Total Bilirubin 0.9 Direct Bilirubin 0.3 AST 79 H ALT 326 H Alkaline Phosphatase 250 H Lactate Dehydrogenase 131 C-Reactive Protein 8.09 H Total Protein 5.6 L Albumin 3.3 L Lipase Vitamin B12 Folate Urine Color Urine Appearance Urine pH Ur Specific [place] Urine Protein Urine Glucose (UA) Urine Ketones Urine Blood Urine Nitrite Ur Leukocyte Esterase Urine RBC Urine WBC Ur Squamous Epith Cells Urine Bacteria Urine Test Stool Collect Date Stool Occult Blood Stool 2 Collect Date Stool Occult Blood #2 Stool 3 Collect Date Stool Occult Blood #3 Acetaminophen IgG Soluble Liver Antigen Anti-Smooth Muscle Ab Tiss Transglutamin IgG Tiss Transglutamin IgA Lyme Screen IgG & IgM Lyme Progressive Test COVID-19 (LESLIE) COVID-19 Clin Com CMV Specimen Source CMV Qnt PCR IU/mL CMV Qnt PCR log IU/mL EBV Source EBV DNA (PCR) Hepatitis A IgM Ab Hep Bs Antigen Hep Bs Antibody Hep B Core Total Ab Hepatitis C Ab (EIA) HIV 1&2 Ab/P24 Ag 4thGn Direct Antiglob Test PIO, Polyspecific 08/04/20 08/04/20 08/05/20 14:16 14:16 05:21 WBC 7.8 RBC 3.08 L Hgb 9.7 L Hct 29.9 L MCV 97.1 MCH 31.5 MCHC 32.4 RDW 13.9 Plt Count 464 H MPV 8.8 L Immature Gran % (Auto) Neut % (Auto) Lymph % (Auto) [place] % (Auto) Eos % (Auto) Baso % (Auto) Lymph # (Auto) [place] # (Auto) Eos # (Auto) Baso # (Auto) Abs Immat Gran (auto) Absolute Neuts (auto) Absolute Nucleated RBC 0.000 Nucleated RBC % (auto) 0.0 Absolute Retic 0.074 Percent Retic 2.4 H Immature Retic Fraction 19.1 H Retic Hgb Equivalent 31.4 PT INR Hold Blue Top Sodium Potassium Chloride Carbon Dioxide Anion Gap BUN Creatinine Estim Creat Clear Calc Estimated GFR POC Glucose Random Glucose Lactic Acid Calcium Iron TIBC % Saturation Unsat Iron Binding Ferritin Total Bilirubin Direct Bilirubin AST ALT Alkaline Phosphatase Lactate Dehydrogenase C-Reactive Protein Total Protein Albumin Lipase Vitamin B12 Folate Urine Color Urine Appearance Urine pH Ur Specific [place] Urine Protein Urine Glucose (UA) Urine Ketones Urine Blood Urine Nitrite Ur Leukocyte Esterase Urine RBC Urine WBC Ur Squamous Epith Cells Urine Bacteria Urine Test Stool Collect Date Stool Occult Blood Stool 2 Collect Date Stool Occult Blood #2 Stool 3 Collect Date Stool Occult Blood #3 Acetaminophen IgG Soluble Liver Antigen Anti-Smooth Muscle Ab Tiss Transglutamin IgG 1 Tiss Transglutamin IgA 1 Lyme Screen IgG & IgM <0.90 Lyme Progressive Test TNP COVID-19 (LESLIE) COVID-19 Clin Com CMV Specimen Source CMV Qnt PCR IU/mL CMV Qnt PCR log IU/mL EBV Source EBV DNA (PCR) Hepatitis A IgM Ab Hep Bs Antigen Hep Bs Antibody Hep B Core Total Ab Hepatitis C Ab (EIA) HIV 1&2 Ab/P24 Ag 4thGn Direct Antiglob Test PIO, Polyspecific 08/05/20 08/05/20 08/05/20 05:21 05:21 05:21 WBC RBC Hgb Hct MCV MCH MCHC RDW Plt Count MPV Immature Gran % (Auto) Neut % (Auto) Lymph % (Auto) [place] % (Auto) Eos % (Auto) Baso % (Auto) Lymph # (Auto) [place] # (Auto) Eos # (Auto) Baso # (Auto) Abs Immat Gran (auto) Absolute Neuts (auto) Absolute Nucleated RBC Nucleated RBC % (auto) Absolute Retic Percent Retic Immature Retic Fraction Retic Hgb Equivalent PT 13.2 H INR 1.1 Hold Blue Top Sodium 141 Potassium 4.3 Chloride 106 Carbon Dioxide 28 Anion Gap 11 L BUN 4 L Creatinine 0.81 Estim Creat Clear Calc 88.9 Estimated GFR > 60 POC Glucose Random Glucose 104 Lactic Acid Calcium 8.6 Iron 74 TIBC 244 % Saturation 30 Unsat Iron Binding 170 Ferritin 248 Total Bilirubin 0.7 Direct Bilirubin AST 34 H D ALT 232 H Alkaline Phosphatase 228 H Lactate Dehydrogenase 133 C-Reactive Protein Total Protein 5.7 L Albumin 3.4 L Lipase Vitamin B12 595 Folate 16.6 Urine Color Urine Appearance Urine pH Ur Specific [place] Urine Protein Urine Glucose (UA) Urine Ketones Urine Blood Urine Nitrite Ur Leukocyte Esterase Urine RBC Urine WBC Ur Squamous Epith Cells Urine Bacteria Urine Test Stool Collect Date Stool Occult Blood Stool 2 Collect Date Stool Occult Blood #2 Stool 3 Collect Date Stool Occult Blood #3 Acetaminophen IgG Soluble Liver Antigen Anti-Smooth Muscle Ab Tiss Transglutamin IgG Tiss Transglutamin IgA Lyme Screen IgG & IgM Lyme Progressive Test COVID-19 (LESLIE) COVID-19 Clin Com CMV Specimen Source CMV Qnt PCR IU/mL CMV Qnt PCR log IU/mL EBV Source EBV DNA (PCR) Hepatitis A IgM Ab Hep Bs Antigen Hep Bs Antibody Hep B Core Total Ab Hepatitis C Ab (EIA) HIV 1&2 Ab/P24 Ag 4thGn Direct Antiglob Test PIO, Polyspecific 08/06/20 08/06/20 08/06/20 06:10 06:10 06:10 WBC 9.9 RBC 3.35 L Hgb 10.5 L Hct 32.3 L MCV 96.4 MCH 31.3 MCHC 32.5 RDW 14.0 Plt Count 530 H MPV 8.5 L Immature Gran % (Auto) Neut % (Auto) Lymph % (Auto) [place] % (Auto) Eos % (Auto) Baso % (Auto) Lymph # (Auto) [place] # (Auto) Eos # (Auto) Baso # (Auto) Abs Immat Gran (auto) Absolute Neuts (auto) Absolute Nucleated RBC 0.000 Nucleated RBC % (auto) 0.0 Absolute Retic Percent Retic Immature Retic Fraction Retic Hgb Equivalent PT INR Hold Blue Top Sodium 139 Potassium 3.6 Chloride 104 Carbon Dioxide 23 Anion Gap 16 BUN 4 L Creatinine 0.87 Estim Creat Clear Calc 82.8 Estimated GFR > 60 POC Glucose Random Glucose 82 Lactic Acid Calcium 9.2 D Iron TIBC % Saturation Unsat Iron Binding Ferritin Total Bilirubin 0.5 Direct Bilirubin AST 23 ALT 194 H Alkaline Phosphatase 243 H Lactate Dehydrogenase C-Reactive Protein 4.19 H Total Protein 6.5 Albumin 3.9 Lipase Vitamin B12 Folate Urine Color Urine Appearance Urine pH Ur Specific [place] Urine Protein Urine Glucose (UA) Urine Ketones Urine Blood Urine Nitrite Ur Leukocyte Esterase Urine RBC Urine WBC Ur Squamous Epith Cells Urine Bacteria Urine Test Stool Collect Date Stool Occult Blood Stool 2 Collect Date Stool Occult Blood #2 Stool 3 Collect Date Stool Occult Blood #3 Acetaminophen IgG Soluble Liver Antigen Anti-Smooth Muscle Ab Tiss Transglutamin IgG Tiss Transglutamin IgA Lyme Screen IgG & IgM Lyme Progressive Test COVID-19 (LESLIE) COVID-19 Clin Com CMV Specimen Source CMV Qnt PCR IU/mL CMV Qnt PCR log IU/mL EBV Source EBV DNA (PCR) Hepatitis A IgM Ab Hep Bs Antigen Hep Bs Antibody Hep B Core Total Ab Hepatitis C Ab (EIA) HIV 1&2 Ab/P24 Ag 4thGn Direct Antiglob Test NEGATIVE PIO, Polyspecific NEGATIVE 08/06/20 08/06/20 08/06/20 06:10 11:11 11:36 WBC RBC Hgb Hct MCV MCH MCHC RDW Plt Count MPV Immature Gran % (Auto) Neut % (Auto) Lymph % (Auto) [place] % (Auto) Eos % (Auto) Baso % (Auto) Lymph # (Auto) [place] # (Auto) Eos # (Auto) Baso # (Auto) Abs Immat Gran (auto) Absolute Neuts (auto) Absolute Nucleated RBC Nucleated RBC % (auto) Absolute Retic Percent Retic Immature Retic Fraction Retic Hgb Equivalent PT INR Hold Blue Top Sodium Potassium Chloride Carbon Dioxide Anion Gap BUN Creatinine Estim Creat Clear Calc Estimated GFR POC Glucose Random Glucose Lactic Acid Calcium Iron TIBC % Saturation Unsat Iron Binding Ferritin Total Bilirubin Direct Bilirubin AST ALT Alkaline Phosphatase Lactate Dehydrogenase C-Reactive Protein Total Protein Albumin Lipase Vitamin B12 Folate Urine Color Urine Appearance Urine pH Ur Specific [place] Urine Protein Urine Glucose (UA) Urine Ketones Urine Blood Urine Nitrite Ur Leukocyte Esterase Urine RBC Urine WBC Ur Squamous Epith Cells Urine Bacteria Urine Test NEGATIVE Stool Collect Date 08-06-20 Stool Occult Blood NEGATIVE Stool 2 Collect Date TNP Stool Occult Blood #2 TNP Stool 3 Collect Date TNP Stool Occult Blood #3 TNP Acetaminophen IgG Soluble Liver Antigen Anti-Smooth Muscle Ab Tiss Transglutamin IgG Tiss Transglutamin IgA Lyme Screen IgG & IgM Lyme Progressive Test COVID-19 (LESLIE) COVID-19 Clin Com CMV Specimen Source CMV Qnt PCR IU/mL CMV Qnt PCR log IU/mL EBV Source EBV DNA (PCR) Hepatitis A IgM Ab Hep Bs Antigen Hep Bs Antibody Hep B Core Total Ab Hepatitis C Ab (EIA) HIV 1&2 Ab/P24 Ag 4thGn Nonreactive Direct Antiglob Test PIO, Polyspecific Airway Mallampati Class: II TM Dist: >3cm Neck ROM: Full
[2020-08-06] MEDS: Lactated Ringers 1,000 ML 100 ML IVCONT ×2 (13:28→15:58)
[2020-08-06 13:38] LABS: Anti Nuclear Antibody Screen NEGATIVE (NEGATIVE)
--- NOTE | 2020-08-06 14:01 | P.BOP_ITS ---
Brief Operative Note Date of Service: 08/06/20 Pre-op diagnosis: anemia, esophageal discomfort Post-op diagnosis: same Procedure: see op note Surgeon: Katina Martinez MD Anesthesia: MAC Was an Line Up Machine Operator used for this Procedure?: No Estimated blood loss (mL): 0 Condition: stable Disposition: PACU
--- NOTE | 2020-08-06 14:01 | W.PM.OPN ---
Operative Note Operative Note Date of Service: 08/06/20 Narrative: Procedure Description: EGD FLEXIBLE TRANSORAL UPPER GASTROINTESTINAL ENDOSCOPY UPPER ENDOSCOPY Consent: Indications for the procedure and potential complications of bleeding, perforation, reaction to medications and missed diagnosis were discussed with the patient and informed consent was obtained. Instrument: Olympus GIF H 190 J mid size upper endoscope Monitoring: Vital signs and clinical assessment, continuous EKG monitoring, Pulse oximetry, Carbon Dioxide monitoring and blood pressure monitoring were done throughout the procedure. Procedure: The patient was placed in the left lateral decubitis position and pre-procedure medications were administered and a bite block was placed. The endoscope was inserted into the mouth and advanced under direct vision to the jejunum. A careful inspection was made as the upper endoscope was withdrawn including a retroflexed examination of the proximal stomach; Findings and interventions are described below. Hx of gastric bypass Findings: Larynx:normal Esophagus: GE junction at 37 cm, diaphragm hiatus at 37 cm, no varices or esophagitis. Stomach pouch: Normal, clips from prior endo suture noted. Grade 2 flap valve on retroflexed examination of the cardia. Jejunum: normal Intervention: None Impression/Findings: normal PLAN: can use PPI or carafate as doing, no concerning findings. no fistula or ulcers seen
[2020-08-06] MEDS: HYDROmorphone HCl 2 MG/ML VIAL 1 MG IVPUSH ×2 (15:52→22:39)
[2020-08-06] MEDS: Mag&Al/Sim/Diphenhyd/Lidocaine 10 ML ORAL.SUSP PO (19:04)
[2020-08-06] MEDS: Sertraline HCL 100 MG TABLET 300 MG PO (19:08)
[2020-08-06] MEDS: oxyCODONE HCl Immed Release 5 MG TABLET PO (19:09)
[2020-08-06] MEDS: busPIRone HCl 10 MG TABLET PO (19:58)
[2020-08-07] MEDS: Mag&Al/Sim/Diphenhyd/Lidocaine 10 ML ORAL.SUSP PO ×2 (01:33→09:05)
[2020-08-07] MEDS: Lactated Ringers 1,000 ML 100 ML IVCONT (02:21)
[2020-08-07 04:00] VITALS: BP 157/85; PULSE 82; RESP 16; TEMP 36.7; O2SAT 95
[2020-08-07] MEDS: diphenhydrAMINE HCL 50 MG/ML VIAL IVPUSH ×2 (05:39→12:01)
[2020-08-07] MEDS: HYDROmorphone HCl 2 MG/ML VIAL 1 MG IVPUSH ×2 (05:44→12:00)
[2020-08-07] MEDS: Pantoprazole Sodium 40 MG/10 ML VIAL IVPUSH (05:44)
[2020-08-07 07:19] LABS: MANUAL DIFF FLAG NO
[2020-08-07 07:27] LABS: Basophils Absolute Auto 0.1 X10*3/uL (0.0-0.2); Basophils Percent Auto 0.8 % (0-2); Eosinophils Absolute Auto 0.5 X10*3/uL (0.0-0.4); Eosinophils Percent Auto 5.6 % (0-4); Hematocrit 28.7 % (37-47); Hemoglobin 9.4 g/dl (12.0-16.0); Imm Gran Abs Auto 0.03 X10*3/uL (0.00-0.03); Imm Gran Pct Auto 0.3 % (0.0-0.4); Lymphocytes Absolute Auto 1.5 X10*3/uL (1.2-4.9); Lymphocytes Percent Auto 16.1 % (20-40); Mean Corpuscular HGB Conc 32.8 g/dl (31.0-35.0); Mean Corpuscular Hemoglobin 31.5 pg (27.0-33.0); Mean Corpuscular Volume 96.3 fL (80-98); Mean Platelet Volume 8.8 fL (9.4-12.3); Monocytes Absolute Auto 0.5 X10*3/uL (0.1-1.2); Neutrophils Absolute Auto 6.4 X10*3/uL (2.0-8.3); Neutrophils Percent Auto 71.2 % (45-73); Platelet Count 445 X10*3/uL (160-400); Red Blood Count 2.98 X10*6/uL (4.20-5.50); Red Cell Distribution Width 13.9 % (11.0-16.0)
[2020-08-07] MEDS: Albuterol Sulfate (0.083%) 2.5 MG/3 ML VIAL.NEB INHALE (07:49)
[2020-08-07 07:51] VITALS: PULSE 71; O2SAT 96
[2020-08-07] MEDS: Fluticasone/Vilanterol 200/25 BLST.W.DEV 1 PUFF INHALE (07:51)
[2020-08-07 07:52] VITALS: BP 120/71; PULSE 78; RESP 19; TEMP 36.2; O2SAT 95
[2020-08-07 08:04] LABS: Alanine Aminotransferase 122 U/L (0-31); Albumin Level 3.4 g/dL (3.5-5.0); Alkaline Phosphatase 192 U/L (39-117); Anion Gap 13 (12-20); Aspartate Amino Transferase 16 U/L (5-31); Bilirubin Direct 0.3 mg/dL (0.0-0.5); Bilirubin Total 0.5 mg/dL (0.0-1.0); Blood Urea Nitrogen 3 mg/dL (9-16); Calcium 8.7 mg/dL (8.4-10.2); Carbon Dioxide 24 mmol/L (22-29); Chloride 105 mmol/L (96-108); Creatinine Clr Calc Pharmacy 98.7; Estimated Glomerular Filt Rate > 60; Glucose Fasting 79 mg/dL (60-99); Potassium 3.5 mmol/L (3.3-5.1); Sodium 138 mmol/L (135-145); Total Protein 5.6 g/dL (6.5-8.0)
--- NOTE | 2020-08-07 08:12 | HO.POSTANES ---
Post Anesthesia Evaluation Post Anesthesia Evaluation Vital Signs: Vital Signs Temp Pulse Resp BP Pulse Ox 08/07/20 07:52 97.1 F 78 19 120/71 95 08/07/20 07:51 71 08/07/20 04:00 98.0 F 82 16 157/85 H 95 08/06/20 23:24 98.0 F 74 16 153/86 H 96 Anesthesia: Monitored Mental Status: Awake Pain Control: Satisfactory Nausea/Vomiting: None Hydration: Adequate Anesthesia-Related Issues: No Anes. Related Issues
--- NOTE | 2020-08-07 08:49 | P.PNIM_ITS ---
Subjective Subjective Date of Service: 08/07/20 Interval History: still with pain and nausea, difficulty eating Cardiovascular Cardiovascular: Reports no additional cardiovascular complaints Gastrointestinal Gastrointestinal: Reports no additional gastrointestinal complaints Physical Exam Vital Signs: Vital Signs: Last Vital Signs Temp 97.1 F 08/07/20 07:52 Pulse 78 08/07/20 07:52 Resp 19 08/07/20 07:52 BP 120/71 08/07/20 07:52 Pulse Ox 95 08/07/20 07:52 Body Mass Index 36.6 General: AO X 3, no acute distress Resp: CTA bilateral CVS: S1,S2,RRR GI: soft, diffuse tender, non distended Neuro: motor grossly intact Psych: appropriate affect Objective Data Current Medications Generic Name Dose Route Start Last Admin Trade Name Freq PRN Reason Stop Dose Admin Albuterol Sulfate 2 puff 08/02/20 11:04 Albuterol Sulfate 90 Mcg 8 Gm Inhaler INHALE Q4H PRN Wheezing Albuterol Sulfate 2.5 mg 08/04/20 12:00 08/07/20 07:49 Albuterol Sulfate (0.083%) 2.5 Mg/3 Ml Vial.Neb INHALE 2.5 mg RQ4H WHILE AWAKE LEANNA Administration Buspirone HCl 10 mg 08/02/20 21:00 08/06/20 19:58 Buspirone Hcl 10 Mg Tablet PO 10 mg BID LEANNA Administration Diphenhydramine HCl 50 mg 08/04/20 10:18 08/07/20 05:39 Diphenhydramine Hcl 50 Mg/Ml Vial IVPUSH 50 mg Q6H PRN Administration Itching Fluticasone/Vilanterol 1 puff 08/05/20 08:00 08/07/20 07:51 Fluticasone/Vilanterol 200/25 Blst.W.Dev INHALE 1 puff RDAILY LEANNA Administration Hydromorphone HCl 1 mg 08/06/20 09:48 08/07/20 05:44 Hydromorphone Hcl 2 Mg/Ml Vial IVPUSH 1 mg Q6H PRN Administration Pain, Severe (Pain Scale 7-10) Lactated Ringer's 1,000 mls @ 100 mls/hr 08/06/20 13:30 08/07/20 02:21 Lr IVCONT 100 mls/hr .Q10H LEANNA Administration Lidocaine/Diphenhydr/Alum/Mg/Simeth 10 ml 08/05/20 16:06 08/07/20 01:33 Mag&Al/Sim/Diphenhyd/Lidocaine 10 Ml Oral.Susp PO 10 ml Q4H PRN Administration dysphagia Protocol Montelukast Sodium 10 mg 08/03/20 09:00 08/06/20 08:07 Montelukast Sodium 10 Mg Tablet PO Not Given DAILY [facility] Ondansetron HCl 4 mg 08/02/20 11:04 08/06/20 17:22 Ondansetron Hcl 4 Mg/2 Ml Vial IVPUSH 4 mg Q8H PRN Administration Nausea and Vomiting Oxycodone HCl 5 mg 08/06/20 18:43 08/06/20 19:09 Oxycodone Hcl Immed Release 5 Mg Tablet PO 5 mg Q4H PRN Administration pain Pantoprazole Sodium 40 mg 08/05/20 16:30 08/07/20 05:44 Pantoprazole Sodium 40 Mg/10 Ml Vial IVPUSH 40 mg BID@0630,1630 [facility] Administration Senna 8.6 mg 08/02/20 11:14 08/03/20 17:17 Sennosides 8.6 Mg Tablet PO 8.6 mg BEDTIME PRN Administration constipation Sertraline HCl 300 mg 08/03/20 09:00 08/06/20 19:08 Sertraline Hcl 100 Mg Tablet PO 300 mg DAILY [facility] Administration Sodium Chloride 3 ml 08/02/20 16:00 08/06/20 19:59 0.9 % Sodium Chloride Flush 3 Ml Syringe IVFLUSH Not Given QSHIFT [facility] Tiotropium [place] 1 puff 08/05/20 08:00 08/07/20 07:51 Tiotropium [place] 18 Mcg Cap.W.Dev INHALE 1 puff RDAILY [facility] Administration Valsartan 160 mg 08/03/20 09:00 08/06/20 08:07 Valsartan 160 Mg Tablet PO Not Given DAILY [facility] Labs CBC & Chem 7: 08/07/20 06:10 08/07/20 06:10 Microbiology Microbiology Results: Microbiology 08/02/20 08:06 Blood - Venous Blood Culture - Preliminary No growth after 48 hours. 08/02/20 07:50 Blood - Venous Blood Culture - Preliminary No growth after 48 hours. 08/02/20 00:00 Urine clean catch - Clean Catch Midstream Urine Culture - Final No growth. Assessment and Plan (1) Abdominal pain: Status: Acute (2) Transaminitis: Status: Acute (3) Urinary tract infection: Status: Acute Assessment and Plan: hospital d#5 49yo F with hx gastric bypass + cholecystectomy with intermittent abd pain admitted with transaminitis associated with acute abd pain acute abd pain with transaminitis - transaminases + CRP decreasing. HAV IgM neg, HBsAg neg, HCV Ab neg, CMV neg, ebv neg, hiv neg. . no evidence of Budd-Chiari or biliary sludging on imaging. JOSÉ MIGUEL, ASMA negative HSV, pending. liver biopsy done 08/05- await pathology. Anaplasma/Ehrlichia/Babesia serologies pending. continue IV H2RA. dc pip/tristan completed 4 days, no evidence of bacterial infection advance diet as tolerated EGD unremarkable no evidence of UTI normocytic anemia appears inflammatory, iron saturation normal no need for infusion HTN continue valsartan, hold HCTZ depression continue sertraline, buspirone asthma - continue LAMA, ICS/LABA, LTRA, prn ENDY VTE ppx - SCDs
[2020-08-07 08:57] VITALS: BP 120/71; PULSE 78
[2020-08-07] MEDS: Valsartan 160 MG TABLET PO (08:57)
[2020-08-07] MEDS: ondansetron HCL 4 MG/2 ML VIAL IVPUSH (08:57)
[2020-08-07] MEDS: Sertraline HCL 100 MG TABLET 300 MG PO (08:57)
[2020-08-07] MEDS: busPIRone HCl 10 MG TABLET PO (08:57)
[2020-08-07] MEDS: Montelukast Sodium 10 MG TABLET PO (08:57)
[2020-08-07] MEDS: oxyCODONE HCl Immed Release 5 MG TABLET PO (09:06)
[2020-08-07] MEDS: 0.9 % Sodium Chloride Flush 3 ML SYRINGE IVFLUSH (09:06)
[2020-08-07 11:48] VITALS: BP 137/78; PULSE 74; RESP 17; TEMP 36.8; O2SAT 96
[2020-08-07 13:21] LABS: HSV 1 IgM IFA Negative (Negative); HSV 2 IgM IFA Negative (Negative)
--- NOTE | 2020-08-07 13:27 | P.DS_ITS ---
DS: Providers Provider Date of Service: 08/07/20 Date of admission: 08/02/20 11:04 Primary care physician: Luis Enrique Mason MD DS: Diagnosis Discharge Diagnosis (1) Abdominal pain: Status: Acute (2) Transaminitis: Status: Acute (3) Urinary tract infection: Status: Acute DS: Medications Discharge Medications Home Medications: Home Medications Medication Instructions Recorded Confirmed Dulera 2 puff INHALATION BID 02/08/20 08/02/20 Singulair 10 mg PO DAILY 02/08/20 08/02/20 albuterol sulfate [ProAir HFA] 2 puff INHALATION Q4-6H PRN 02/08/20 08/02/20 buspirone 10 mg PO BID 02/08/20 08/02/20 hydrochlorothiazide 25 mg PO DAILY 02/08/20 08/02/20 irbesartan 300 mg PO DAILY 02/08/20 08/02/20 sertraline [Zoloft] 300 mg PO DAILY 02/08/20 08/02/20 Spiriva with HandiHaler 1 cap INHALATION DAILY 08/02/20 08/02/20 Previous Rx's Medication Instructions Recorded sucralfate 100 mg/mL oral 10 ml PO BID #420 ml 02/08/20 suspension lansoprazole 30 mg delayed 30 mg PO DAILY #90 tab 07/01/20 release,disintegrating tablet ondansetron 4 mg PO Q8H PRN #20 tab 08/01/20 senna 8.6 mg PO BEDTIME PRN #30 cap 08/01/20 Magic Mouthwash 5 ml PO TID PRN 10 Days #240 ml 08/07/20 Diphen/Lido/Antacid 1:1:1 hydrocodone-acetaminophen 1 tab PO Q6H PRN #12 tab 08/07/20 DS: Summary Hospital Course Hospital Course: from initial h and p: This is a 49-year-old female patient with past medical history significant for asthma, hypertension, DJD, status post cholecystectomy in December of 2019 at [facility]. Since then, the patient has chronic abdominal pain that got worsened, over last couple of days, the patient is being followed by Dr. Martinez from Gastroenterology. She was evaluated at his office on June 2020 due to persistent abdominal pain and abdominal MRI from 07/10 showed no common bile duct dilatation or stones. She subsequently underwent upper GI small bowel series that showed changes from gastric bypass, otherwise normal small bowel series. The patient presented to [facility] yesterday due to abdominal pain and nausea, CAT scan of the abdomen and pelvis was unremarkable. Her LFTs were normal. Therefore, she was discharged home. The patient presented again to [facility] due to epigastric pain with radiation to right upper quadrant and back. The pain was severe. therefore, an ultrasound was obtained that showed no acute abnormality. However, the patient was noted to have significant elevation in her LFTs as compared to yesterday. AST was 288 with an alkaline phosphatase of 258 and C-reactive protein was 11.15. Total bilirubin was 1.3. Her electrolytes otherwise are unremarkable. Her CBC showed an elevated WBC count of 14.7. Urinalysis showed 2+ bacteria with no nitrates, wbc's 5 to 9. The patient in the ER treated with IV fluids, IV morphine with some improvement in symptoms and now being admitted to [facility] due to right-sided abdominal pain with elevated LFTs. summary: Patient was admitted for abdominal pain and transaminitis. She had extensive workup which included liver biopsy which is still pending. Transaminases have been decreasing. Hepatitis screen negative, CMV and EBV negative, HIV negative, no evidence of Budd-Chiari or biliary sludge, JOSÉ MIGUEL, and anti smooth muscle negative, parasitic serologies pending. Patient was treated for 4 days with Zosyn which was discontinued after cultures were negative. She underwent EGD which was unremarkable. Patient's symptoms have improved she is able to tolerate diet. She will follow-up with Gastroenterology for results of her liver biopsy and to further trend her transaminases. Time Spent with Patient Time attestation: Total time spent providing and/or coordinating discharge services: Discharge coordination time: Greater than 30 minutes Quality: Stroke Does the patient have a stroke diagnosis?: No Physical Exam Vital Signs: Vital Signs: Last Vital Signs Temp 98.2 F 08/07/20 11:48 Pulse 74 08/07/20 11:48 Resp 17 08/07/20 11:48 BP 137/78 08/07/20 11:48 Pulse Ox 96 08/07/20 11:48 Body Mass Index 36.6 General: AO X 3, no acute distress Resp: CTA bilateral CVS: S1,S2,RRR GI: soft, non tender, non distended Neuro: motor grossly intact Psych: appropriate affect DS: Data Data Completed and Pending Pending studies at discharge: Pending at discharge 08/05/20 10:11 Surgical [PTH] Routine Labs on day of discharge: Laboratory Results - last 24 hr 08/02/20 08/02/20 08/07/20 13:19 13:19 06:10 WBC 9.0 RBC 2.98 L Hgb 9.4 L Hct 28.7 L MCV 96.3 MCH 31.5 MCHC 32.8 RDW 13.9 Plt Count 445 H MPV 8.8 L Immature Gran % (Auto) 0.3 Neut % (Auto) 71.2 Lymph % (Auto) 16.1 L Woodruff % (Auto) 6.0 Eos % (Auto) 5.6 H Baso % (Auto) 0.8 Lymph # (Auto) 1.5 Woodruff # (Auto) 0.5 Eos # (Auto) 0.5 H Baso # (Auto) 0.1 Abs Immat Gran (auto) 0.03 Absolute Neuts (auto) 6.4 Absolute Nucleated RBC 0.000 Nucleated RBC % (auto) 0.0 Sodium Potassium Chloride Carbon Dioxide Anion Gap BUN Creatinine Estim Creat Clear Calc Estimated GFR Fasting Glucose Calcium Total Bilirubin Direct Bilirubin AST ALT Alkaline Phosphatase Total Protein Albumin JOSÉ MIGUEL Screen NEGATIVE JOSÉ MIGUEL Titer TNP JOSÉ MIGUEL Titer 2 TNP JOSÉ MIGUEL Titer 3 TNP JOSÉ MIGUEL Pattern TNP JOSÉ MIGUEL Pattern 2 TNP JOSÉ MIGUEL Pattern 3 TNP HSV I IgM Ab (IFA) Negative HSV II IgM Ab (IFA) Negative 08/07/20 06:10 WBC RBC Hgb Hct MCV MCH MCHC RDW Plt Count MPV Immature Gran % (Auto) Neut % (Auto) Lymph % (Auto) Woodruff % (Auto) Eos % (Auto) Baso % (Auto) Lymph # (Auto) Woodruff # (Auto) Eos # (Auto) Baso # (Auto) Abs Immat Gran (auto) Absolute Neuts (auto) Absolute Nucleated RBC Nucleated RBC % (auto) Sodium 138 Potassium 3.5 Chloride 105 Carbon Dioxide 24 Anion Gap 13 BUN 3 L Creatinine 0.73 Estim Creat Clear Calc 98.7 Estimated GFR > 60 Fasting Glucose 79 Calcium 8.7 Total Bilirubin 0.5 Direct Bilirubin 0.3 AST 16 ALT 122 H Alkaline Phosphatase 192 H D Total Protein 5.6 L Albumin 3.4 L JOSÉ MIGUEL Screen JOSÉ MIGUEL Titer JOSÉ MIGUEL Titer 2 JOSÉ MIGUEL Titer 3 JOSÉ MIGUEL Pattern JOSÉ MIGUEL Pattern 2 JOSÉ MIGUEL Pattern 3 HSV I IgM Ab (IFA) HSV II IgM Ab (IFA) Discharge Plan Discharge Patient Disposition: Home, Self-Care Discharge Diagnosis: transaminitis Referrals: Luis Enrique Mason MD [Primary Care Provider] - 1 Week Katina Martinez MD [Physician] - 1 Week Discharge Medications: New Magic Mouthwash Diphen/Lido/Antacid 1:1:1 240 mL suspension 5 ml PO TID PRN (Reason: dyphagia) 10 Days Qty: 240 RF: 0 Continued sucralfate [Carafate] 100 mg/mL suspension 10 ml PO BID Qty: 420 RF: 2 ondansetron 4 mg tablet,disintegrating 4 mg PO Q8H PRN (Reason: nausea and vomiting) Qty: 20 RF: 0 senna 8.6 mg capsule 8.6 mg PO BEDTIME PRN (Reason: constipation) Qty: 30 RF: 0 sertraline [Zoloft] 100 mg Tablet 300 mg PO DAILY RF: 0 buspirone 10 mg Tablet 10 mg PO BID RF: 0 albuterol sulfate [ProAir HFA] 90 mcg/actuation Hfa Aerosol Inhaler 2 puff INHALATION Q4-6H PRN (Reason: Wheezing) RF: 0 irbesartan 300 mg Tablet 300 mg PO DAILY RF: 0 Dulera 50-5 mcg/actuation Hfa Aerosol Inhaler 2 puff INHALATION BID RF: 0 Singulair 10 mg PO DAILY RF: 0 hydrochlorothiazide 25 mg PO DAILY RF: 0 Spiriva with HandiHaler 18 mcg Capsule, W/Inhalation Device 1 cap INHALATION DAILY RF: 0 hydrocodone-acetaminophen 5-325 mg tablet 1 tab PO Q6H PRN (Reason: pain) Qty: 12 RF: 0 lansoprazole [Prevacid SoluTab] 30 mg tablet,disintegrat, delay rel 30 mg PO DAILY Qty: 90 RF: 2 Discharge Orders: Discharge Order (Routine); Ordered 08/07/20 Ordered By: Viral Issa Activity on Discharge: As tolerated Stand Alone Forms: Patient Portal Discharge page Care Plan Goals: recovery Health Concerns: transaminitis Plan of Treatment: follow up with gi for pathology results Assessment: see above
--- NOTE | 2020-08-07 13:34 | MHC.CM.PN ---
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
[2020-08-07 14:12] LABS: Haptoglobin 231 mg/dL (43-212)
[2020-08-08 03:02] LABS: Haptoglobin 215 mg/dL (43-212)
[2020-08-08 16:01] LABS: A. Phagocytophilum Ab IgG <1:64 (<1:64); A. Phagocytophilum Ab IgM <1:20 (<1:20); E. Chaffeensis Ab IgG <1:64 (<1:64); E. Chaffeensis Ab IgM <1:20 (<1:20)
[2020-08-11 12:46] LABS: Babesia IgG <1:64 titer (<1:64); Babesia IgM <1:20 titer (<1:20)
== END 2020-08-07 14:00 | disposition home or self-care (01) | DRG 861 ==
LOC: HO.ED 07:04 → HO.EDOVER 11:42 → HO.S3 13:06
PROVIDERS: Family Medicine; Internal Medicine Gastroenterology; Radiology Diagnostic Radiology; Admitting Provider Hospitalist; Emergency Provider Emergency Medicine; PCP Internal Medicine; Visit Provider Internal Medicine
PROC: 0FB23ZX Excision of Left Lobe Liver, Percutaneous Approach, Diagnostic (ICD-10-PCS; principal; 2020-08-05 09:00)
PROC: 0DJ08ZZ Inspection of Upper Intestinal Tract, Via Natural or Artificial Opening Endoscopic (ICD-10-PCS; CPT 43235; principal; 2020-08-06 11:50)
DX: R74.01 Elevation of levels of liver transaminase levels (principal); D64.9 Anemia, unspecified; K21.9 Gastro-esophageal reflux disease without esophagitis; F32.9 Major depressive disorder, single episode, unspecified; J45.909 Unspecified asthma, uncomplicated; I10 Essential (primary) hypertension; R10.9 Unspecified abdominal pain; Z20.822 Contact with and (suspected) exposure to COVID-19; Z98.84 Bariatric surgery status; Z88.5 Allergy status to narcotic agent; Z79.899 Other long term (current) drug therapy
CPT/HCPCS: 43235; 36415; 47000; 74183; 76705; 76942; 80048; 80053; 80076; 80143; 81001; 81003; 81025; 82270; 82607; 82728; 82746; 82784; 82947; 83010; 83516; 83520; 83540; 83605; 83615; 83690; 85025; 85027; 85045; 85610; 86038; 86039; 86140; 86255; 86617; 86618; 86666; 86695; 86696; 86704; 86706; 86709; 86753; 86803; 86880; 87040; 87086; 87340; 87389; 87497; 87635; 87798; 88307; 88313; 93975; 94640; 94664; 96365; 96375; 99152; 99218; 99285; A9585; J0696; J1170; J1200; J2060; J2270; J2405; J2543; J3010

== ENCOUNTER 2020-10-22 14:43 | Outpatient (REF) | payer MEDICAID, SELFPAY ==
[2020-10-22 15:40] LABS: MANUAL DIFF FLAG NO
[2020-10-22 15:43] LABS: Basophils Absolute Auto 0.1 X10*3/uL (0.0-0.2); Basophils Percent Auto 0.6 % (0-2); Eosinophils Absolute Auto 0.4 X10*3/uL (0.0-0.4); Eosinophils Percent Auto 2.7 % (0-4); Hematocrit 44.1 % (37-47); Hemoglobin 14.7 g/dl (12.0-16.0); Imm Gran Abs Auto 0.08 X10*3/uL (0.00-0.03); Imm Gran Pct Auto 0.6 % (0.0-0.4); Lymphocytes Absolute Auto 3.6 X10*3/uL (1.2-4.9); Lymphocytes Percent Auto 24.8 % (20-40); Mean Corpuscular HGB Conc 33.3 g/dl (31.0-35.0); Mean Corpuscular Hemoglobin 30.2 pg (27.0-33.0); Mean Corpuscular Volume 90.6 fL (80-98); Mean Platelet Volume 8.6 fL (9.4-12.3); Monocytes Absolute Auto 1.1 X10*3/uL (0.1-1.2); Monocytes Percent Auto 7.3 % (2-11); Neutrophils Absolute Auto 9.2 X10*3/uL (2.0-8.3); Platelet Count 595 X10*3/uL (160-400); Red Blood Count 4.87 X10*6/uL (4.20-5.50); Red Cell Distribution Width 13.8 % (11.0-16.0); White Blood Count 14.3 X10*3/uL (4.8-10.8)
[2020-10-22 15:55] LABS: Iron 104 mcg/dL (30-160); Percent Iron Saturation 28 % (15-50); Total Iron Binding Capacity 365 mcg/dL (228-428); Unsaturated Iron Binding 261 ug/dL
[2020-10-22 16:00] LABS: Alanine Aminotransferase 30 U/L (0-31); Albumin Level 4.2 g/dL (3.5-5.0); Alkaline Phosphatase 91 U/L (39-117); Anion Gap 14 (12-20); Aspartate Amino Transferase 22 U/L (5-31); Bilirubin Total 0.5 mg/dL (0.0-1.0); Blood Urea Nitrogen 13 mg/dL (9-16); C Reactive Protein 0.53 mg/dL (< or = 0.50); Calcium 9.9 mg/dL (8.4-10.2); Carbon Dioxide 26 mmol/L (22-29); Chloride 101 mmol/L (96-108); Estimated Glomerular Filt Rate > 60; Glucose Random 92 mg/dL (60-115); Potassium 4.9 mmol/L (3.3-5.1); Sodium 136 mmol/L (135-145)
[2020-10-22 16:21] LABS: Ferritin 156 ng/mL (10-250); TSH reflex Free T4 1.63 uIU/mL (0.32-4.0)
[2020-10-22 16:35] LABS: Erythrocyte Sedimentation Rate 10 MM/HR (0-20)
[2020-10-24 13:27] LABS: Anti Nuclear Antibody Screen NEGATIVE (NEGATIVE)
== END 2020-10-22 14:44 | disposition home or self-care (01) ==
LOC: HO.LAB 14:43
PROVIDERS: PCP Internal Medicine; Visit Provider Internal Medicine Gastroenterology
DX: K31.84 Gastroparesis (principal); R10.33 Periumbilical pain; R10.9 Unspecified abdominal pain; K75.81 Nonalcoholic steatohepatitis (NASH)
CPT/HCPCS: 36415; 80053; 82728; 83540; 84443; 85025; 85652; 86038; 86039; 86140

== ENCOUNTER → 2020-10-24 09:23 | Outpatient (BNVA) | payer MEDICAID, SELFPAY | PROVIDERS: PCP Internal Medicine; Visit Provider Internal Medicine Gastroenterology ==

== ENCOUNTER 2020-11-06 11:01 | Outpatient (REF) | payer MEDICAID, SELFPAY ==
[2020-11-06 12:33] LABS: MANUAL DIFF FLAG NO
[2020-11-06 12:44] LABS: Basophils Absolute Auto 0.1 X10*3/uL (0.0-0.2); Basophils Percent Auto 0.5 % (0-2); Eosinophils Absolute Auto 0.5 X10*3/uL (0.0-0.4); Eosinophils Percent Auto 4.5 % (0-4); Hematocrit 42.2 % (37-47); Hemoglobin 14.1 g/dl (12.0-16.0); Imm Gran Abs Auto 0.08 X10*3/uL (0.00-0.03); Imm Gran Pct Auto 0.7 % (0.0-0.4); Lymphocytes Absolute Auto 3.1 X10*3/uL (1.2-4.9); Lymphocytes Percent Auto 26.3 % (20-40); Mean Corpuscular HGB Conc 33.4 g/dl (31.0-35.0); Mean Corpuscular Volume 89.8 fL (80-98); Mean Platelet Volume 8.6 fL (9.4-12.3); Monocytes Absolute Auto 0.7 X10*3/uL (0.1-1.2); Monocytes Percent Auto 6.2 % (2-11); Neutrophils Absolute Auto 7.2 X10*3/uL (2.0-8.3); Neutrophils Percent Auto 61.8 % (45-73); Platelet Count 547 X10*3/uL (160-400); Red Cell Distribution Width 14.1 % (11.0-16.0); White Blood Count 11.6 X10*3/uL (4.8-10.8)
[2020-11-06 13:11] LABS: Alanine Aminotransferase 29 U/L (0-31); Alkaline Phosphatase 84 U/L (39-117); Anion Gap 14 (12-20); Aspartate Amino Transferase 22 U/L (5-31); Bilirubin Total 0.6 mg/dL (0.0-1.0); Blood Urea Nitrogen 17 mg/dL (9-16); C Reactive Protein 1.92 mg/dL (< or = 0.50); Calcium 9.9 mg/dL (8.4-10.2); Carbon Dioxide 26 mmol/L (22-29); Chloride 99 mmol/L (96-108); Estimated Glomerular Filt Rate > 60; Glucose Random 92 mg/dL (60-115); Iron 93 mcg/dL (30-160); Percent Iron Saturation 28 % (15-50); Potassium 4.8 mmol/L (3.3-5.1); Sodium 134 mmol/L (135-145); Total Iron Binding Capacity 338 mcg/dL (228-428); Total Protein 6.9 g/dL (6.5-8.0); Unsaturated Iron Binding 245 ug/dL
[2020-11-06 13:46] LABS: Ferritin 168 ng/mL (10-250)
[2020-11-06 13:55] LABS: Erythrocyte Sedimentation Rate 18 MM/HR (0-20)
[2020-11-10 17:02] LABS: Arsenic, Blood <3 mcg/L (<23); Lead, Blood <1 mcg/dL (<5); Mercury, Blood 8 mcg/L (<=10)
[2020-11-10 19:55] LABS: Hu Antibody Screen, IFA Serum NEGATIVE (NEGATIVE); Yo Antibody, Serum Screen NEGATIVE (NEGATIVE)
[2020-11-18 07:16] LABS: Cobalt, Random Urine <0.5 mcg/L; Creatinine, Random Urine 69 mg/dL (20-275)
== END 2020-11-06 11:02 | disposition home or self-care (01) ==
LOC: HO.LAB 11:01
PROVIDERS: PCP Internal Medicine; Visit Provider Internal Medicine Gastroenterology
DX: R10.33 Periumbilical pain (principal); R74.01 Elevation of levels of liver transaminase levels; K75.81 Nonalcoholic steatohepatitis (NASH); K31.84 Gastroparesis
CPT/HCPCS: 36415; 80053; 82175; 82300; 82570; 82728; 83018; 83540; 83655; 83825; 84181; 85025; 85652; 86140; 86255; 86256

== ENCOUNTER 2021-01-27 10:46 | Outpatient (REF) | payer MEDICAID, SELFPAY ==
[2021-01-27 12:13] LABS: MANUAL DIFF FLAG NO
[2021-01-27 12:40] LABS: Basophils Absolute Auto 0.1 X10*3/uL (0.0-0.2); Basophils Percent Auto 0.7 % (0-2); Eosinophils Absolute Auto 0.3 X10*3/uL (0.0-0.4); Eosinophils Percent Auto 2.6 % (0-4); Hematocrit 39.7 % (37.0-47.0); Hemoglobin 13.3 g/dl (12.0-16.0); Imm Gran Abs Auto 0.04 X10*3/uL (0.00-0.03); Imm Gran Pct Auto 0.4 % (0.0-0.4); Lymphocytes Absolute Auto 2.4 X10*3/uL (1.2-4.9); Lymphocytes Percent Auto 24.1 % (20-40); Mean Corpuscular HGB Conc 33.5 g/dl (31.0-35.0); Mean Corpuscular Hemoglobin 30.9 pg (27.0-33.0); Mean Corpuscular Volume 92.3 fL (80.0-98.0); Mean Platelet Volume 8.3 fL (9.4-12.3); Monocytes Absolute Auto 0.6 X10*3/uL (0.1-1.2); Monocytes Percent Auto 6.4 % (2-11); Neutrophils Percent Auto 65.8 % (45-73); Platelet Count 530 X10*3/uL (160-400); Red Cell Distribution Width 14.3 % (11.0-16.0); White Blood Count 9.9 X10*3/uL (4.8-10.8)
[2021-01-27 13:09] LABS: Alanine Aminotransferase 26 U/L (0-31); Albumin Level 4.2 g/dL (3.5-5.0); Alkaline Phosphatase 97 U/L (39-117); Anion Gap 15 (12-20); Aspartate Amino Transferase 21 U/L (5-31); Bilirubin Total 0.6 mg/dL (0.0-1.0); Blood Urea Nitrogen 15 mg/dL (9-16); C Reactive Protein 1.04 mg/dL (< or = 0.50); Calcium 9.7 mg/dL (8.4-10.2); Carbon Dioxide 26 mmol/L (22-29); Chloride 101 mmol/L (96-108); Estimated Glomerular Filt Rate > 60; Glucose Random 100 mg/dL (60-115); Iron 75 mcg/dL (30-160); Percent Iron Saturation 22 % (15-50); Potassium 4.7 mmol/L (3.3-5.1); Sodium 137 mmol/L (135-145); Total Iron Binding Capacity 347 mcg/dL (228-428); Total Protein 6.9 g/dL (6.5-8.0); Unsaturated Iron Binding 272 ug/dL
[2021-01-27 13:20] LABS: Erythrocyte Sedimentation Rate 17 MM/HR (0-20)
[2021-01-27 13:31] LABS: Ferritin 139 ng/mL (10-250)
[2021-01-27 13:40] LABS: Rheumatoid Factor < 15.0 IU/mL (<15.0)
[2021-01-28 17:36] LABS: IgA 451 mg/dL (47-310); IgG 834 mg/dL (600-1640); IgM 73 mg/dL (50-300)
[2021-01-29 14:26] LABS: Anti Nuclear Antibody Screen NEGATIVE (NEGATIVE)
[2021-01-30 10:52] LABS: Cyclic Citrullinated Peptide <16 UNITS
[2021-01-30 19:31] LABS: Soluble Transferrin Receptor 0.96 mg/L (0.76-1.76)
[2021-02-02 14:02] LABS: Aldolase 4.7 U/L (<=8.1)
== END 2021-01-27 10:47 | disposition home or self-care (01) ==
LOC: HO.LAB 10:46
PROVIDERS: PCP Internal Medicine; Visit Provider Internal Medicine Gastroenterology
DX: R10.9 Unspecified abdominal pain (principal); D75.839 Thrombocytosis, unspecified; R74.01 Elevation of levels of liver transaminase levels; M25.50 Pain in unspecified joint; K75.81 Nonalcoholic steatohepatitis (NASH); R79.82 Elevated C-reactive protein (CRP)
CPT/HCPCS: 36415; 80053; 81219; 81270; 81279; 81339; 82085; 82550; 82728; 82784; 83540; 84238; 85025; 85652; 86038; 86039; 86140; 86200; 86431; 99212

== ENCOUNTER 2021-01-30 09:48 | Outpatient (REF) | payer MEDICAID, SELFPAY ==
[2021-02-03 20:31] LABS: Calprotectin, Fecal 297 mcg/g
== END 2021-01-30 09:49 | disposition home or self-care (01) ==
LOC: HO.LNP 09:48
PROVIDERS: Visit Provider Internal Medicine Gastroenterology
DX: K50.10 Crohn's disease of large intestine without complications (principal)
CPT/HCPCS: 83993

== ENCOUNTER 2021-06-08 09:57 | Outpatient (REF) | payer MEDICAID, SELFPAY ==
--- NOTE | ~2021-06-08 | XR_ITS ---
EXAMINATION: XR ABDOMEN KUB CLINICAL INDICATION: R10.9 - Unspecified abdominal pain COMPARISON: MR abdomen 08/03/2020, CT abdomen 08/01/2020 TECHNIQUE: AP x3 views of the abdomen. FINDINGS: There are surgical clips left upper quadrant and left abdomen consistent with the prior gastric bypass. There is a single loop of bowel left upper quadrant just below the bypass clips measuring 5 cm in diameter and 12 cm in length, possibly the naveen loop. Otherwise, there is no gaseous distention of bowel or abnormal collections of gas. There is moderate stool in the right and left:. There is no pneumatosis. Visualized lung bases are clear. There are mild degenerative changes lumbar spine. XR/XR KUB IMPRESSION: Gaseous distention single loop small bowel left upper quadrant 5 cm diameter by 12 cm in length, possibly the naveen loop.
== END 2021-06-08 09:58 | disposition home or self-care (01) ==
LOC: HO.XRAY 09:57
PROVIDERS: PCP Internal Medicine; Visit Provider Internal Medicine Gastroenterology
DX: R10.9 Unspecified abdominal pain (principal); J45.909 Unspecified asthma, uncomplicated; I10 Essential (primary) hypertension; M19.90 Unspecified osteoarthritis, unspecified site
CPT/HCPCS: 74018; 99212

== ENCOUNTER 2021-06-15 14:55 | Outpatient (REF) | payer MEDICAID, SELFPAY ==
--- NOTE | ~2021-06-15 | CT_ITS ---
EXAMINATION: CT ENTEROGRAPHY ABDOMEN AND PELVIS WITH CONTRAST CLINICAL INFORMATION: Follow up abnormal radiograph dated from 06/08/2021. COMPARISON: Abdominal radiograph dated from 06/08/2021. MRI abdomen dated from 08/03/2020. CT abdomen/pelvis dated from 08/01/2020. TECHNIQUE: Study performed with oral VoLumen (1350 mL) and 480 mL of water to distend the abdomen. The patient was injected with 85 mL Omnipaque 350 intravenous contrast which was administered without adverse effect. Coronal and sagittal reformatted images were obtained at the technologist's workstation. This CT examination was performed using dose optimization techniques as appropriate, variously including the following: *Automated exposure control. *Adjustment of mA and/or kV according to patient size (this includes techniques or standardized protocols for targeted exams where dose is matched to indication/reason for exam; i.e. extremities or head). *Use of iterative reconstruction technique. DLP: 652 mGy-cm FINDINGS: GASTROINTESTINAL FINDINGS: Stomach: Postsurgical changes following Sina-en-Y gastric bypass. No significant wall thickening or perigastric inflammatory changes. Small Intestine: As above, Sina-en-Y gastric bypass. The pancreaticobiliary limb is nondilated. There is a patulous appearance of the Sina Limb at the level of the JJ anastomosis, which is likely postsurgical. There is no abnormal dilatation to suspect a significant stenosis. Some portions of the jejunum are underdistended which limits assessment of wall thickening. However, accounting for these limitations, no significant wall thickening nor inflammatory changes are identified. Large Intestine: Well distended and normal in appearance. No perirectal changes demonstrated. Additional Findings: No abnormal enhancement of the vasa recta or significant mesenteric or retroperitoneal lymphadenopathy is seen. No abdominal abscess or fistulous tract demonstrated. ABDOMINAL AND PELVIC CT FINDINGS: Liver, Gallbladder, Biliary Tract: A small hypodensity in segment 8 of the liver (3:46) is unchanged and was previously characterized as a hemangioma versus small cyst on an MR from 08/03/2020. No new liver lesions. The liver is normal in size, shape and attenuation. Prior cholecystectomy. No biliary duct dilatation. Pancreas: Diffuse fatty infiltration. Spleen: Unremarkable. Adrenal Glands And Kidneys: A few small hypodensities in the right kidney, correlate with T2 bright cysts on prior MR from 08/03/2020. No hydronephrosis or nephrolithiasis. No perinephric fat stranding. Normal adrenal glands. Bladder: Unremarkable. Pelvis: Lobulated uterine contour with multiple fibroids. There are 2 closely opposed water density follicles versus a minimally septated cyst in the right adnexa (4:58). Abdominal Wall: Postsurgical changes with tacks and scarring. No significant hernia. Lymphovascular Structures: No lymphadenopathy by size criteria. Normal diameter of the abdominal aorta. Portal vein and SMV are patent. Bones: No acute or aggressive-appearing osseous abnormalities. Interdisc spacers at L4-L5 and L5-S1. Thoracolumbar spondylosis. Lung bases: Clear. CT/CT enterography IMPRESSION: 1. No evidence of active inflammatory bowel changes. Redemonstration of normal postsurgical appearance following Sina-en-Y gastric bypass. 2. Uterine fibroids. 3. There are 2 closely apposed water density cysts versus a minimally septated cyst in the right adnexa. Recommend correlation with a dedicated pelvic ultrasound.
[2021-06-15] MEDS: iohexoL 350 MG/ML 100 ML INFUS..BTL 85 ML IV (16:16)
[2021-06-15] MEDS: Sorbitol/Mannit/Xanth Imaging 500 ML LIQUID 1500 ML PO (16:33)
== END 2021-06-15 14:56 | disposition home or self-care (01) ==
LOC: HO.US 14:55
PROVIDERS: PCP Internal Medicine; Visit Provider Internal Medicine Gastroenterology
DX: R10.9 Unspecified abdominal pain (principal); R93.89 Abnormal findings on diagnostic imaging of other specified body structures
CPT/HCPCS: 74177; Q9967

== ENCOUNTER 2021-10-12 09:44 | Outpatient (REF) | payer MEDICAID, SELFPAY ==
--- NOTE | ~2021-10-12 | CT_ITS ---
EXAMINATION: CT ABDOMEN AND PELVIS WITH CONTRAST CLINICAL INFORMATION: Right lower quadrant pain. COMPARISON: CT abdomen and pelvis 06/15/2021 TECHNIQUE: Multidetector volumetric images were obtained from the superior aspect of the liver through the pubic symphysis following administration 85 mL of Omnipaque 350 intravenous contrast. Sagittal and coronal reformatted images were obtained on the technologist's workstation. Oral contrast: No This CT examination was performed using dose optimization techniques as appropriate, variously including the following: *Automated exposure control *Adjustment of mA and/or kV according to patient size (this includes techniques or standardized protocols for targeted exams where dose is matched to indication/reason for exam; i.e. extremities or head) *Use of iterative reconstruction technique DLP: 615 mGy-cm FINDINGS: LUNG BASES: The visualized lung bases are unremarkable. LIVER, GALLBLADDER, AND BILIARY TREE: The liver is normal in size, shape, and attenuation. There is a 7 mm hypodensity segment 7/8 in the right hepatic lobe. No intrahepatic ductal dilatation. The gallbladder is not visualized. PANCREAS: The pancreas is slightly attenuated but no focal lesion or enlargement. The peripancreatic fat borders are preserved. SPLEEN: Unremarkable. ADRENAL GLANDS: Unremarkable. KIDNEYS AND URETERS: The kidneys are normal in size, shape, and attenuation. No hydronephrosis, hydroureter, or calculi seen. No perinephric stranding. There is a smaller cortical 7 mm hypodensity of the lower pole of the right kidney likely small cysts. They're unchanged to previous CT abdomen exam. BLADDER: Unremarkable. GASTROINTESTINAL TRACT: There are gastric bypass surgical changes. Visualized small bowel loops are unremarkable. Oral contrast opacified the colon and appears unremarkable. Appendix is normal. ABDOMINAL WALL: There are post surgical case in the right anterior abdominal wall similar to previous study. No evidence of hernia. LYMPH NODES: No abnormal lymph nodes are seen. VASCULAR: Abdominal aorta is of normal caliber. PELVIC VISCERA: The uterus is slightly bulky and retroverted likely fibroid disease as noted before. No adnexal mass or free fluid seen. Punctate calcification is seen in the right adnexa likely within the small ovary. There is a small follicle in the left ovary visualized measuring 1.1 cm on axial image 69/3. No abnormal sized pelvic or inguinal lymph nodes. OSSEOUS STRUCTURES: There is L4-L5 and L5-S1 cages from fusion. There are degenerative disc changes with vacuum disc phenomena at the L3-L4 disc level. There is mild ventral spondylosis. CT/CT abdomen pelvis w con IMPRESSION: Bulky retroverted uterus from fibroid disease. No adnexal mass or free fluid is seen. Suspect small left ovarian cyst. Mild constipation. No obstruction. Normal appendix. Likely fatty liver without enlargement. Gallbladder is not seen. Fleischner guidelines were followed.
[2021-10-12 10:08] LABS: MANUAL DIFF FLAG NO
[2021-10-12 10:45] LABS: Basophils Absolute Auto 0.1 X10*3/uL (0.0-0.2); Eosinophils Absolute Auto 0.3 X10*3/uL (0.0-0.4); Eosinophils Percent Auto 3.3 % (0-4); Hematocrit 39.1 % (37.0-47.0); Imm Gran Abs Auto 0.07 X10*3/uL (0.00-0.03); Imm Gran Pct Auto 0.8 % (0.0-0.4); Lymphocytes Absolute Auto 2.6 X10*3/uL (1.2-4.9); Lymphocytes Percent Auto 28.1 % (20-40); Mean Corpuscular HGB Conc 33.2 g/dl (31.0-35.0); Mean Corpuscular Volume 90.1 fL (80.0-98.0); Mean Platelet Volume 8.7 fL (9.4-12.3); Monocytes Absolute Auto 0.7 X10*3/uL (0.1-1.2); Monocytes Percent Auto 7.1 % (2-11); Neutrophils Absolute Auto 5.6 x10*3/uL (2.0-8.3); Neutrophils Percent Auto 59.7 % (45-73); Platelet Count 536 X10*3/uL (160-400); Red Blood Count 4.34 X10*6/uL (4.20-5.50); Red Cell Distribution Width 13.2 % (11.0-16.0); White Blood Count 9.3 X10*3/uL (4.8-10.8)
[2021-10-12 12:06] LABS: Alanine Aminotransferase 18 U/L (0-31); Albumin Level 4.2 g/dL (3.5-5.0); Alkaline Phosphatase 93 U/L (39-117); Anion Gap 16 (12-20); Aspartate Amino Transferase 17 U/L (5-31); Bilirubin Total 0.4 mg/dL (0.0-1.0); Blood Urea Nitrogen 15 mg/dL (9-16); C Reactive Protein 3.32 mg/dL (< or = 0.50); Calcium 9.5 mg/dL (8.4-10.2); Carbon Dioxide 22 mmol/L (22-29); Chloride 102 mmol/L (96-108); Estimated Glomerular Filt Rate > 60; Glucose Random 90 mg/dL (60-115); Potassium 4.8 mmol/L (3.3-5.1); Sodium 135 mmol/L (135-145)
[2021-10-12] MEDS: iohexoL 350 MG/ML 100 ML INFUS..BTL IV (15:35)
== END 2021-10-12 09:45 | disposition home or self-care (01) ==
LOC: HO.CT 09:44
PROVIDERS: PCP Internal Medicine; Visit Provider Internal Medicine Gastroenterology
DX: R10.13 Epigastric pain (principal); R10.31 Right lower quadrant pain; K75.81 Nonalcoholic steatohepatitis (NASH)
CPT/HCPCS: 36415; 74177; 80053; 85025; 86140; Q9967